=== PATIENT | male | born 1985 | race Caucasian/White ===

== ENCOUNTER 2021-05-30 15:05 | Emergency (ER) | payer MEDICAID, SELFPAY ==
--- NOTE | 2021-05-30 | ECG_ITS ---
Test Reason : MEDICAL CLEARANCE Blood Pressure : / mmHG Vent. Rate : 049 BPM Atrial Rate : 049 BPM P-R Int : 166 ms QRS Dur : 092 ms QT Int : 404 ms P-R-T Axes : 041 083 009 degrees QTc Int : 364 ms Sinus bradycardia Nonspecific ST abnormality When compared with ECG of 28-DEC-2014 17:50, Vent. rate has decreased BY 37 BPM QT has shortened Referred By: Jenna Macdonald Electronically Signed By:NORMA WOODALL MD
[2021-05-30 15:18] VITALS: BP 136/76; PULSE 74; RESP 18; TEMP 36.9; O2SAT 98; BMI 28.1
--- NOTE | 2021-05-30 15:44 | ED.PSYCH ---
HPI - Psych General Chief Complaint: Psychiatric Symptoms Stated Complaint: psychiatric symptoms Time Seen by Provider: 05/30/21 15:36 Source: patient Mode of arrival: ambulatory Limitations: no limitations History of Present Illness MD complaint: suicidal ideation and feels depressed Onset (ago): day(s) (few) Duration: constant History of same: Yes Relieving factors: none Exacerbating factors: none Context: recent drug abuse (relapsed) Associated psychiatric symptoms: depression and suicidal ideation Associated symptoms: denies other symptoms Treatments prior to arrival: none If self harm: admits thoughts of self harm Related Data Home Medications Medication Instructions Recorded Confirmed buprenorphine 8 mg-naloxone 2 mg 1 strip SUBLINGUAL BID 05/30/21 05/30/21 sublingual film (Suboxone) glecaprevir 100 mg-pibrentasvir 40 3 tab PO BEDTIME 05/30/21 05/30/21 mg tablet (Mavyret) Allergies Allergy/AdvReac Type Severity Reaction Status Date / Time No Known Allergies Allergy Unverified 11/25/19 16:18 [No Known Allergies*] Review of Systems Review of Systems: Constitutional : No Fever, No Chills ENT/Mouth : No Ear Pain, No Nasal Congestion, No sore throat Eyes: No Eye Pain, No Swelling, No Redness Cardiovascular : No Chest Pain, No SOB Respiratory : No Cough, No Sputum, No Dyspnea Gastrointestinal : No Nausea, No Vomiting, No Diarrhea, No Hematochezia, No Melena Genitourinary : No Dysuria, No Urinary Frequency, No Hematuria Musculoskeletal : No Myalgias Skin : No Skin Lesions, No rash Neuro : No Weakness, No Numbness, No Paresthesias, No Dizziness, No Headache Psych : positive Anxiety, positive Depression, positive SI no HI Heme/Lymph: No Lymphadenopathy Endocrine : No Polyuria, No Polydipsia All other systems reviewed and are negative PMFSH Past Medical History Attestation statement: The following information was validated with the patient. Medical History (Updated 05/30/21 @ 17:05 by Jenna Macdonald DO) Hepatitis C Opiate abuse, episodic Social History Social History (Updated 05/30/21 @ 16:02 by Jenna Macdonald DO) Patient Tobacco Use Status: Former Tobacco user Substance Use Type: Heroin Advance Directives: No Advance Directives Information Provided: No Healthcare Proxy: No Guardian: No Physical Exam Vital Signs: Vital Signs: Last Vital Signs Temp 98.5 F 05/30/21 15:18 Pulse 74 05/30/21 15:18 Resp 18 05/30/21 15:18 BP 136/76 05/30/21 15:18 Pulse Ox 98 05/30/21 15:18 BMI result Body Mass Index 28.1 Appearance: Alert. Oriented X3. No acute distress. Calm and cooperative Eyes: Pupils equal, round and reactive to light. ENT: Pharynx normal. Neck: Normal inspection. Neck supple. CVS: Normal heart rate and rhythm. Pulses normal. Respiratory: No respiratory distress. Breath sounds normal. Abdomen: Soft and nontender. Skin: Skin warm and dry. Normal skin color. Normal skin turgor. Extremities: No lower extremity edema. No calf ttp Neuro: Oriented X 3. No motor deficit. No sensory deficit. CN2-12 intact Course Course Course Narrative: Physician observation started at 503pm. Patient placed in physician observation because the patient needed more time for [facility] to assess the need for inpatient psych admission. At the time observation was started the patient's vitals were stable, patient is alert and oriented, Neuro: nonfocal, CV RRR, Lungs clear MDM - Psych MDM Narrative Medical decision making narrative: 35 yo male with hx of opiate use disorder comes in with c/o depression and SI after relapse he is on suboxone, denies any medical complaints will obtain labs and refer to N. Lab Data Result diagrams: 05/30/21 16:30 05/30/21 16:30 Labs: Lab Results 05/30/21 05/30/21 05/30/21 Range/Units 16:30 16:30 16:30 WBC 6.6 (4.8-10.8) X10*3/uL RBC 4.45 L (4.60-5.80) X10*6/uL Hgb 13.5 L (14.0-18.0) g/dl Hct 40.0 L (42.0-52.0) % MCV 89.9 (80.0-98.0) fL MCH 30.3 (27.0-33.0) pg MCHC 33.8 (31.0-36.0) g/dl RDW 13.1 (11.0-16.0) % Plt Count 303 (160-400) X10*3/uL MPV 9.7 (9.4-12.4) fL Immature Gran % (Auto) 0.2 (0.0-0.4) % Neut % (Auto) 75.8 H (45-73) % Lymph % (Auto) 18.0 L (20-40) % [place] % (Auto) 5.6 (2-11) % Eos % (Auto) 0.2 (0-4) % Baso % (Auto) 0.2 (0-2) % Lymph # (Auto) 1.2 (1.2-4.9) X10*3/uL [place] # (Auto) 0.4 (0.1-1.2) X10*3/uL Eos # (Auto) 0.0 (0.0-0.4) X10*3/uL Baso # (Auto) 0.0 (0.0-0.2) X10*3/uL Abs Immat Gran (auto) 0.01 (0.00-0.03) X10*3/uL Absolute Neuts (auto) 5.0 (2.0-8.3) x10*3/uL Absolute Nucleated RBC 0.000 (0.0-0.012) X10*3/uL Nucleated RBC % (auto) 0.0 (0.0-0.2) /100WBC Sodium 134 L (135-145) mmol/L Potassium 4.3 (3.3-5.1) mmol/L Chloride 99 (96-108) mmol/L Carbon Dioxide 29 (22-29) mmol/L Anion Gap 10 L (12-20) BUN 16 (9-16) mg/dL Creatinine 1.09 (0.5-1.4) mg/dL Estim Creat Clear Calc 102.9 Estimated GFR > 60 Random Glucose 133 H (60-115) mg/dL Calcium 9.3 (8.4-10.2) mg/dL Total Bilirubin 0.5 (0.0-1.0) mg/dL Direct Bilirubin 0.2 (0.0-0.5) mg/dL AST 14 (5-37) U/L ALT 26 (0-40) U/L Alkaline Phosphatase 69 (39-117) U/L Total Protein 7.1 (6.5-8.0) g/dL Albumin 4.2 (3.5-5.0) g/dL Urine Opiates Screen (Not Detect) Urine Fentanyl Screen (Not Detect) Ur Barbiturates Screen (Not Detect) Ur Phencyclidine Scrn (Not Detect) Ur Amphetamines Screen (Not Detect) U Benzodiazepines Scrn (Not Detect) Urine Cocaine Screen (Not Detect) U Marijuana (THC) Screen (Not Detect) Ethyl Alcohol mg/dL COVID-19 (ART) Negative (Negative) COVID-19 Clin Com See Note 05/30/21 05/30/21 Range/Units 16:30 16:30 WBC (4.8-10.8) X10*3/uL RBC (4.60-5.80) X10*6/uL Hgb (14.0-18.0) g/dl Hct (42.0-52.0) % MCV (80.0-98.0) fL MCH (27.0-33.0) pg MCHC (31.0-36.0) g/dl RDW (11.0-16.0) % Plt Count (160-400) X10*3/uL MPV (9.4-12.4) fL Immature Gran % (Auto) (0.0-0.4) % Neut % (Auto) (45-73) % Lymph % (Auto) (20-40) % [place] % (Auto) (2-11) % Eos % (Auto) (0-4) % Baso % (Auto) (0-2) % Lymph # (Auto) (1.2-4.9) X10*3/uL [place] # (Auto) (0.1-1.2) X10*3/uL Eos # (Auto) (0.0-0.4) X10*3/uL Baso # (Auto) (0.0-0.2) X10*3/uL Abs Immat Gran (auto) (0.00-0.03) X10*3/uL Absolute Neuts (auto) (2.0-8.3) x10*3/uL Absolute Nucleated RBC (0.0-0.012) X10*3/uL Nucleated RBC % (auto) (0.0-0.2) /100WBC Sodium (135-145) mmol/L Potassium (3.3-5.1) mmol/L Chloride (96-108) mmol/L Carbon Dioxide (22-29) mmol/L Anion Gap (12-20) BUN (9-16) mg/dL Creatinine (0.5-1.4) mg/dL Estim Creat Clear Calc Estimated GFR Random Glucose (60-115) mg/dL Calcium (8.4-10.2) mg/dL Total Bilirubin (0.0-1.0) mg/dL Direct Bilirubin (0.0-0.5) mg/dL AST (5-37) U/L ALT (0-40) U/L Alkaline Phosphatase (39-117) U/L Total Protein (6.5-8.0) g/dL Albumin (3.5-5.0) g/dL Urine Opiates Screen POSITIVE H (Not Detect) Urine Fentanyl Screen POSITIVE H (Not Detect) Ur Barbiturates Screen Not Detected (Not Detect) Ur Phencyclidine Scrn Not Detected (Not Detect) Ur Amphetamines Screen Not Detected (Not Detect) U Benzodiazepines Scrn Not Detected (Not Detect) Urine Cocaine Screen POSITIVE H (Not Detect) U Marijuana (THC) Screen POSITIVE H (Not Detect) Ethyl Alcohol < 10 mg/dL COVID-19 (ART) (Negative) COVID-19 Clin Com ECG Data Attestation: I personally reviewed and interpreted this ECG as follows: ECG interpretation date: 05/30/21 ECG interpretation time: 19:40 Interpretation: Rate: 49 Rhythm: sinus bradycardia [place]: normal Normal P waves. Normal RAÚL. Normal QRS complex. ST T wave : no RANDELL, nonspecific inf leads qTC: normal prior studies: no acute ischemia The study has been interpreted contemporaneously by me. Discharge Plan Discharge Clinical Impression: Drug abuse Depression Qualifiers: Depression Type: unspecified Qualified Code(s): F32.A - Depression, unspecified Patient Disposition: Still a Patient Prescriptions: No Action buprenorphine-naloxone [Suboxone] 8-2 mg film 1 strip sublingual BID 0RF Mavyret 100-40 mg tablet 3 tab PO BEDTIME 0RF
--- NOTE | 2021-05-30 16:07 | PC.NURSE ---
patient comes in reporting recent relapse with heroin and cocaine for four days usage today last used two bags heroin, currently in treatment with mavyret for HCV (brought own supply) and suboxone, uses [facility] [address] and [facility], he states the relapse in addition to loss of job and other losses over the last month has contributed to his current state having some SI with method but no intent or plan. states he has housing, denies hallucinations. states he took covid vaccine Moderna. contracts for safety currently.
--- NOTE | 2021-05-30 16:25 | PC.NURSE ---
last heroin use approximately 12p today
[2021-05-30 16:37] LABS: MANUAL DIFF FLAG NO
[2021-05-30 16:39] LABS: Basophils Percent Auto 0.2 % (0-2); Eosinophils Percent Auto 0.2 % (0-4); Hemoglobin 13.5 g/dl (14.0-18.0); Imm Gran Abs Auto 0.01 X10*3/uL (0.00-0.03); Imm Gran Pct Auto 0.2 % (0.0-0.4); Lymphocytes Absolute Auto 1.2 X10*3/uL (1.2-4.9); Mean Corpuscular HGB Conc 33.8 g/dl (31.0-36.0); Mean Corpuscular Hemoglobin 30.3 pg (27.0-33.0); Mean Corpuscular Volume 89.9 fL (80.0-98.0); Mean Platelet Volume 9.7 fL (9.4-12.4); Monocytes Absolute Auto 0.4 X10*3/uL (0.1-1.2); Monocytes Percent Auto 5.6 % (2-11); Neutrophils Percent Auto 75.8 % (45-73); Platelet Count 303 X10*3/uL (160-400); Red Blood Count 4.45 X10*6/uL (4.60-5.80); Red Cell Distribution Width 13.1 % (11.0-16.0); White Blood Count 6.6 X10*3/uL (4.8-10.8)
[2021-05-30 16:55] LABS: COVID-19 Test Negative (Negative); Ethanol < 10 mg/dL
[2021-05-30 16:56] LABS: Amphetamine Screen Urine Not Detected (Not Detect); Barbiturates, Urine Not Detected (Not Detect); Benzodiazepines Screen Urine Not Detected (Not Detect); Cannabinoid Screen Urine POSITIVE (Not Detect); Cocaine Screen Urine POSITIVE (Not Detect); Fentanyl, urine POSITIVE (Not Detect); Opiate Screen Urine POSITIVE (Not Detect); Phencyclidine Screen Urine Not Detected (Not Detect)
[2021-05-30 16:57] LABS: Alanine Aminotransferase 26 U/L (0-40); Albumin Level 4.2 g/dL (3.5-5.0); Alkaline Phosphatase 69 U/L (39-117); Anion Gap 10 (12-20); Aspartate Amino Transferase 14 U/L (5-37); Bilirubin Direct 0.2 mg/dL (0.0-0.5); Bilirubin Total 0.5 mg/dL (0.0-1.0); Blood Urea Nitrogen 16 mg/dL (9-16); Calcium 9.3 mg/dL (8.4-10.2); Carbon Dioxide 29 mmol/L (22-29); Chloride 99 mmol/L (96-108); Creatinine Clr Calc Pharmacy 102.9; Estimated Glomerular Filt Rate > 60; Glucose Random 133 mg/dL (60-115); Potassium 4.3 mmol/L (3.3-5.1); Sodium 134 mmol/L (135-145); Total Protein 7.1 g/dL (6.5-8.0)
[2021-05-30] MEDS: Nicotine Polacrilex 2 MG GUM BUCCAL ×2 (16:59→19:35)
--- NOTE | 2021-05-30 18:23 | MHC.CARE ---
Pt is a CARE Team bedsearch
[2021-05-30 19:45] VITALS: BP 121/61; PULSE 52; RESP 16; TEMP 37.2; O2SAT 99
[2021-05-30] MEDS: Gabapentin 600 MG TABLET 800 MG PO (21:05)
[2021-05-31 00:45] VITALS: BP 131/71; PULSE 54; RESP 16; TEMP 37; O2SAT 94
[2021-05-31 00:52] VITALS: BP 131/71; PULSE 54; RESP 14; TEMP 37; O2SAT 94
[2021-05-31] MEDS: Nicotine Polacrilex 2 MG GUM BUCCAL ×2 (01:06→14:14)
--- NOTE | 2021-05-31 05:50 | PC.NURSE ---
Patient stayed up until 0300 clock watching TV, sleeping since then, no distress observed/reported, patient refused HS suboxone to avoid precipitated withdrawal, medication compliant, behavior appropriate, disposition per care team is section 12 inpatient bed search, will continue to monitor.
--- NOTE | 2021-05-31 07:08 | PC.NURSE ---
Care assumed at this time, report from Perez CANTU. Pt sleeping at this time.
[2021-05-31 08:14] VITALS: BP 138/76; PULSE 59; RESP 13; TEMP 36.8; O2SAT 99
[2021-05-31] MEDS: Gabapentin 600 MG TABLET 800 MG PO ×3 (09:30→20:57)
[2021-05-31] MEDS: Buprenorphine/Naloxone 8/2 mg FILM 1 FILM SUBLINGUAL ×2 (09:31→20:57)
[2021-05-31] MEDS: Buprenorphine/Naloxone 8/2 mg FILM 2 FILM SUBLINGUAL (10:56)
--- NOTE | 2021-05-31 11:06 | PC.NURSE ---
Pt feels as though the dose of suboxone taken this morning has precipitated withdrawal for him. MD placed stat order for 2 films, medical transcription editor per MAY.
--- NOTE | 2021-05-31 12:07 | PC.NURSE ---
Pt noted to be looking in anther patient's room. Pt educated he cannot be invading other patient's privacy. Pt started angrily muttering walking back to his room I know him gesturing, angry at staff for not getting the tv remote from pt's room so he could have it. Pt back in his room at thsi time talking to Cindy from Comprehensive Care team.
--- NOTE | 2021-05-31 15:05 | MHC.RECOVRN ---
Met with pt this morning after c/o precipitated withdrawal. Pt visibly anxious, diaphoretic, rhinorrhea, and reporting body aches. 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 Pt educated regarding options to address withdrawal- taking more Suboxone or taking comfort meds and let time pass. Pt requesting to take more Suboxone. Spoke with Dr. Macdonald and decision was made to give pt 16 mg additional Suboxone. T/w reassessed pt approx an hour later and pt reported decrease in withdrawal symptoms. Pt appeared diaphoretic, however, states It helped. I feel better. Pt not sedated. Awake, sitting in bed, watching TV. In addition, pt spoke with t/w regarding looking into another pts room for the TV remote. Pt frustrated due to the pod having one remote. Pt becoming agitated at times during conversation but able to de-escalate quickly. Pt reminded of need to respect staff and peers. Pt agreeable. Pt given t/w contact information if needed.
[2021-05-31 16:57] VITALS: BP 147/75; PULSE 60; RESP 18; TEMP 37.1; O2SAT 96
[2021-06-01] MEDS: diphenhydrAMINE HCL 25 MG TABLET 50 MG PO (01:30)
[2021-06-01 02:34] VITALS: BP 120/84; PULSE 68; RESP 16; TEMP 37.1; O2SAT 98
[2021-06-01] MEDS: Nicotine Polacrilex 2 MG GUM BUCCAL ×2 (05:28→08:00)
[2021-06-01] MEDS: Buprenorphine/Naloxone 8/2 mg FILM 1 FILM SUBLINGUAL (06:17)
--- NOTE | 2021-06-01 06:18 | PC.NURSE ---
Patient slept though the night, no distress observed/reported, behavior appropriate and non concerning at this time, medication compliant, disposition per care team is section 12 inpatient bed search, patient is pre-accepted either M5 or M3 per care team, AM suboxone administered early per patient's request and provider's approval, VSS, to will continue to monitor.
[2021-06-01] MEDS: Gabapentin 600 MG TABLET 800 MG PO (08:00)
[2021-06-01 09:06] VITALS: BP 144/84; PULSE 63; RESP 17; O2SAT 97
--- NOTE | 2021-06-01 09:50 | PC.NURSE ---
Pt desiring to rescind his CV. CARE team aware and to speak with patient.
--- NOTE | 2021-06-02 12:47 | MHC.CARE ---
CARE team called and spoke with Roscoe, he reports he is feeling really good and I am walking in right now to see my daughter . He reports recovery team did follow up with him, CARE team informed him he left his book here at hospital and he reported he is done reading it and requested to donate it to unit for other patients to read.
== END 2021-06-01 11:30 | disposition home or self-care (01) ==
PROVIDERS: Emergency Provider Emergency Medicine; PCP Internal Medicine
DX: F33.1 Major depressive disorder, recurrent, moderate (principal); R45.851 Suicidal ideations; F14.10 Cocaine abuse, uncomplicated; F11.10 Opioid abuse, uncomplicated; Z20.822 Contact with and (suspected) exposure to COVID-19; Z79.899 Other long term (current) drug therapy; Z87.891 Personal history of nicotine dependence
CPT/HCPCS: 80048; 80076; 80307; 82077; 85025; 87635; 93005; 99285; Q0163

== ENCOUNTER 2021-06-23 14:07 | Inpatient (IN) | payer MEDICAID, OTHER, SELFPAY ==
[2021-06-23 14:16] VITALS: BP 166/71; PULSE 82; RESP 18; TEMP 36.8; O2SAT 96; BMI 29.7
--- NOTE | 2021-06-23 14:59 | ECG_ITS ---
Test Reason : CHEST PRESS Blood Pressure : / mmHG Vent. Rate : 064 BPM Atrial Rate : 064 BPM P-R Int : 158 ms QRS Dur : 100 ms QT Int : 372 ms P-R-T Axes : 057 092 011 degrees QTc Int : 383 ms Normal sinus rhythm Rightward axis Minimal voltage criteria for LVH, may be normal variant ( [place] product ) Borderline ECG When compared with ECG of 30-MAY-2021 19:30, No significant change was found Referred By: Lisa Ibrahim Electronically Signed By:Nathan Jane
--- NOTE | 2021-06-23 15:04 | ED.PSYCH ---
HPI - Psych General Chief Complaint: Psychiatric Symptoms Stated Complaint: crisis Time Seen by Provider: 06/23/21 14:39 Source: patient Mode of arrival: ambulatory Limitations: no limitations History of Present Illness HPI Narrative: 35-year-old male presents with suicidal ideation with a plan. His plan is to obtain a gun from his friends and shoot himself. He denies homicidal ideation, visual or auditory hallucinations. Patient used heroin and cocaine, he injected both at noon today. He had been clean for almost 2 years but for the past week he has been using every day. He has not taken any Suboxone for the past 2 days. He has some reflux now. He feels like he has reflux symptoms when he uses cocaine. Patient is prescribed gabapentin for anxiety. He has no therapist or psychiatrist. He did have an inpatient psychiatric stay at [facility] in 2019 which he found helpful. States for the last 2 months he has had a multiple life stressors. He lost his job, he has instability with landlord, and he is in love with someone which is unrequited. Patient was here for 2 days in late May for suicidal ideation and was discharged home on Suboxone. Related Data Home Medications Medication Instructions Recorded Confirmed buprenorphine 8 mg-naloxone 2 mg 1 strip SUBLINGUAL BID 06/23/21 06/23/21 sublingual film gabapentin 800 mg tablet 1 tab PO TID 06/23/21 06/23/21 Allergies Allergy/AdvReac Type Severity Reaction Status Date / Time No Known Allergies Allergy Verified 06/23/21 14:15 [No Known Allergies*] Review of Systems Constitutional: Constitutional: Denies body ache(s), Denies chills, Denies fatigue, Denies fever(s), Denies headache(s), Denies malaise and Denies weakness Eyes: Eyes: Denies diplopia ENT: Denies vertigo, Denies dizziness, Denies otalgia, Denies headache(s), Denies mouth pain, Denies post nasal drip, Denies sinus pain, Denies sinus pressure, Denies sore throat and Denies throat swelling Cardiovascular: Cardiovascular: Denies chest pain, Denies syncope, Denies leg edema, Denies lightheadedness, Denies Loss of Consciousness, Denies palpitations and Denies dyspnea Respiratory: Respiratory: Denies chest congestion, Denies cough and Denies dyspnea Gastrointestinal: Gastrointestinal: Denies abdominal pain, Denies melena, Denies hematochezia, Denies change in stool character, Denies constipation, Reports dyspepsia, Reports heartburn, Denies diarrhea and Denies vomiting Genitourinary: Genitourinary: Reports no additional male genitourinary complaints Musculoskeletal: Musculoskeletal: Reports no additional musculoskeletal complaints Neurologic: Denies confusion, Denies vertigo, Denies dizziness, Denies syncope, Denies headache(s) and Denies weakness Psychiatric: Psychiatric: Denies anxiety, Denies confusion and Denies depression Endocrine: Endocrine: Denies fatigue and Denies palpitations Allergic/Immunologic: Allergic/Immunologic: Denies throat swelling PMFSH Past Medical History Medical History (Updated 06/23/21 @ 20:31 by CARMEN Nieto) Hepatitis C Opiate abuse, episodic Social History Social History Patient Tobacco Use Status: Former Tobacco user Substance Use Type: Heroin Advance Directives: No Advance Directives Information Provided: No Physical Exam Vital Signs: Vital Signs: Last Vital Signs Temp 98.2 F 06/23/21 14:16 Pulse 82 06/23/21 14:16 Resp 18 06/23/21 14:16 BP 166/71 H 06/23/21 14:16 Pulse Ox 96 06/23/21 14:16 BMI result Body Mass Index 29.7 Const: General: No confusion Nutritional Appearance: well nourished Orientation/consciousness: No confusion Limitations: no limitations HEENT: Head: Yes normal to inspection, Yes normocephalic and Yes atraumatic Ears: hearing grossly normal bilaterally, external ears normal, TM's normal bilaterally and EAC's normal General nose exam: Normal external nose present Face and sinus: Yes normal facial exam and Yes sinuses nontender Mouth: Normal oral and palatal mucosa present Throat: Yes posterior oropharynx normal Eyes: Conjunctivae: conjunctivae normal Pupils: Equal, round and reactive pupils present EOM: EOMs intact bilaterally Neck: Neck: Yes full ROM, Yes no lymphadenopathy and Yes supple Resp: Effort & Inspection: normal respiratory effort and able to speak in complete sentences Auscultation: clear to auscultation bilaterally, no crackles, no rales, no rhonchi and no wheezes Cardio: Rate: regular rate Rhythm: regular rhythm Heart sounds: S1 normal heart sound present and S2 normal heart sound present GI: Inspection: Yes normal to inspection Palpation (GI): Soft to palpation, nontender, no guarding and not rigid Percussion: Yes normal to percussion Auscultation: normal bowel sounds Skin: General skin exam: no rashes or lesions noted Neuro: General: No confusion Cranial nerves: Yes Equal, round and reactive pupils present Extrem: General: Yes normal to inspection and Yes full ROM Psych: Appearance: grossly normal Affect: normal affect Attitude: cooperative Thought process: Normal thought process present Course Course Course Narrative: 35-year-old male with suicidal ideation with a plan to shoot himself with a gun he could obtain from friends. Patient used heroin and cocaine just prior to arrival. On exam, patient is pleasant cooperative, has stable vitals, lungs clear to auscultation bilaterally, abdomen soft nontender, heart regular rate and rhythm. Will get labs, drug screen, troponin, EKG. Reevaluation(s) Reevaluation #1: Patient is mildly hyperkalemic at 5 point 4, as white blood cell count 11.7, negative for COVID, EKG is normal troponin is negative, patient's urine drug screen is positive for fentanyl, cocaine, opiates, marijuana Patient is medically cleared for crisis evaluation Reevaluation #2: Spoke to García, recovery specialist, who suggested I put in an order for 2 mg Suboxone as a 1 time dose, he discussed with patient the patient will wait and asks for it when he is ready so it does not precipitate withdrawal. Time: 20:30 Reevaluation #3: Patient placed into physician observation at this time, awaiting crisis evaluation I put in for repeat CMP to check patient's mildly elevated potassium. MDM - Psych Lab Data Result diagrams: 06/23/21 15:20 06/23/21 15:20 Labs: Lab Results 06/23/21 06/23/21 06/23/21 Range/Units 14:45 15:20 15:20 WBC 11.7 H (4.8-10.8) X10*3/uL RBC 4.73 (4.60-5.80) X10*6/uL Hgb 14.3 (14.0-18.0) g/dl Hct 43.0 (42.0-52.0) % MCV 90.9 (80.0-98.0) fL MCH 30.2 (27.0-33.0) pg MCHC 33.3 (31.0-36.0) g/dl RDW 13.4 (11.0-16.0) % Plt Count 398 D (160-400) X10*3/uL MPV 9.1 L (9.4-12.4) fL Immature Gran % (Auto) 0.3 (0.0-0.4) % Neut % (Auto) 86.6 H (45-73) % Lymph % (Auto) 8.1 L (20-40) % [place] % (Auto) 4.1 (2-11) % Eos % (Auto) 0.6 (0-4) % Baso % (Auto) 0.3 (0-2) % Lymph # (Auto) 1.0 L (1.2-4.9) X10*3/uL [place] # (Auto) 0.5 (0.1-1.2) X10*3/uL Eos # (Auto) 0.1 (0.0-0.4) X10*3/uL Baso # (Auto) 0.0 (0.0-0.2) X10*3/uL Abs Immat Gran (auto) 0.04 H (0.00-0.03) X10*3/uL Absolute Neuts (auto) 10.2 H (2.0-8.3) x10*3/uL Absolute Nucleated RBC 0.000 (0.0-0.012) X10*3/uL Nucleated RBC % (auto) 0.0 (0.0-0.2) /100WBC Sodium 134 L (135-145) mmol/L Potassium 5.3 H D (3.3-5.1) mmol/L Chloride 101 (96-108) mmol/L Carbon Dioxide 24 (22-29) mmol/L Anion Gap 14 (12-20) BUN 11 (9-16) mg/dL Creatinine 1.00 (0.5-1.4) mg/dL Estim Creat Clear Calc 108.1 Estimated GFR > 60 Random Glucose 110 (60-115) mg/dL Calcium 9.7 (8.4-10.2) mg/dL Total Bilirubin 0.4 (0.0-1.0) mg/dL AST 19 (5-37) U/L ALT 32 (0-40) U/L Alkaline Phosphatase 60 (39-117) U/L Troponin I High Sens (<3.5-35.0) ng/L Total Protein 7.4 (6.5-8.0) g/dL Albumin 4.2 (3.5-5.0) g/dL Salicylates < 5.0 L (15-30) mg/dL Urine Opiates Screen (Not Detect) Urine Fentanyl Screen (Not Detect) Acetaminophen < 1 (<30) mcg/mL Ur Barbiturates Screen (Not Detect) Ur Phencyclidine Scrn (Not Detect) Ur Amphetamines Screen (Not Detect) U Benzodiazepines Scrn (Not Detect) Urine Cocaine Screen (Not Detect) U Marijuana (THC) Screen (Not Detect) Ethyl Alcohol mg/dL COVID-19 (ART) Negative (Negative) COVID-19 Clin Com See Note 06/23/21 06/23/21 06/23/21 Range/Units 15:20 15:20 15:27 WBC (4.8-10.8) X10*3/uL RBC (4.60-5.80) X10*6/uL Hgb (14.0-18.0) g/dl Hct (42.0-52.0) % MCV (80.0-98.0) fL MCH (27.0-33.0) pg MCHC (31.0-36.0) g/dl RDW (11.0-16.0) % Plt Count (160-400) X10*3/uL MPV (9.4-12.4) fL Immature Gran % (Auto) (0.0-0.4) % Neut % (Auto) (45-73) % Lymph % (Auto) (20-40) % [place] % (Auto) (2-11) % Eos % (Auto) (0-4) % Baso % (Auto) (0-2) % Lymph # (Auto) (1.2-4.9) X10*3/uL [place] # (Auto) (0.1-1.2) X10*3/uL Eos # (Auto) (0.0-0.4) X10*3/uL Baso # (Auto) (0.0-0.2) X10*3/uL Abs Immat Gran (auto) (0.00-0.03) X10*3/uL Absolute Neuts (auto) (2.0-8.3) x10*3/uL Absolute Nucleated RBC (0.0-0.012) X10*3/uL Nucleated RBC % (auto) (0.0-0.2) /100WBC Sodium (135-145) mmol/L Potassium (3.3-5.1) mmol/L Chloride (96-108) mmol/L Carbon Dioxide (22-29) mmol/L Anion Gap (12-20) BUN (9-16) mg/dL Creatinine (0.5-1.4) mg/dL Estim Creat Clear Calc Estimated GFR Random Glucose (60-115) mg/dL Calcium (8.4-10.2) mg/dL Total Bilirubin (0.0-1.0) mg/dL AST (5-37) U/L ALT (0-40) U/L Alkaline Phosphatase (39-117) U/L Troponin I High Sens 3.8 (<3.5-35.0) ng/L Total Protein (6.5-8.0) g/dL Albumin (3.5-5.0) g/dL Salicylates (15-30) mg/dL Urine Opiates Screen POSITIVE H (Not Detect) Urine Fentanyl Screen POSITIVE H (Not Detect) Acetaminophen (<30) mcg/mL Ur Barbiturates Screen Not Detected (Not Detect) Ur Phencyclidine Scrn Not Detected (Not Detect) Ur Amphetamines Screen Not Detected (Not Detect) U Benzodiazepines Scrn Not Detected (Not Detect) Urine Cocaine Screen POSITIVE H (Not Detect) U Marijuana (THC) Screen POSITIVE H (Not Detect) Ethyl Alcohol < 10 mg/dL COVID-19 (ART) (Negative) COVID-19 Clin Com Discharge Plan Discharge Clinical Impression: Suicidal ideation Patient Disposition: Still a Patient Prescriptions: No Action gabapentin 800 mg tablet 1 tab PO TID 0RF buprenorphine-naloxone 8-2 mg film 1 strip sublingual BID 0RF
[2021-06-23 15:13] LABS: COVID-19 Test Negative (Negative); IDNOW Serial# 55D5AD1C
[2021-06-23 15:24] LABS: MANUAL DIFF FLAG NO
[2021-06-23] MEDS: Nicotine Polacrilex 2 MG GUM BUCCAL ×3 (15:25→20:42)
[2021-06-23] MEDS: Magnesium Hydrox/Alum Hydrox 30 ML ORAL.SUSP PO (15:25)
[2021-06-23 15:26] LABS: Basophils Percent Auto 0.3 % (0-2); Eosinophils Absolute Auto 0.1 X10*3/uL (0.0-0.4); Eosinophils Percent Auto 0.6 % (0-4); Hemoglobin 14.3 g/dl (14.0-18.0); Imm Gran Abs Auto 0.04 X10*3/uL (0.00-0.03); Imm Gran Pct Auto 0.3 % (0.0-0.4); Lymphocytes Percent Auto 8.1 % (20-40); Mean Corpuscular HGB Conc 33.3 g/dl (31.0-36.0); Mean Corpuscular Hemoglobin 30.2 pg (27.0-33.0); Mean Corpuscular Volume 90.9 fL (80.0-98.0); Mean Platelet Volume 9.1 fL (9.4-12.4); Monocytes Absolute Auto 0.5 X10*3/uL (0.1-1.2); Monocytes Percent Auto 4.1 % (2-11); Neutrophils Absolute Auto 10.2 x10*3/uL (2.0-8.3); Neutrophils Percent Auto 86.6 % (45-73); Platelet Count 398 X10*3/uL (160-400); Red Blood Count 4.73 X10*6/uL (4.60-5.80); Red Cell Distribution Width 13.4 % (11.0-16.0); White Blood Count 11.7 X10*3/uL (4.8-10.8)
[2021-06-23 15:38] LABS: Ethanol < 10 mg/dL
[2021-06-23 15:45] LABS: Acetaminophen LAB < 1 mcg/mL (<30); Alanine Aminotransferase 32 U/L (0-40); Albumin Level 4.2 g/dL (3.5-5.0); Alkaline Phosphatase 60 U/L (39-117); Anion Gap 14 (12-20); Aspartate Amino Transferase 19 U/L (5-37); Bilirubin Total 0.4 mg/dL (0.0-1.0); Blood Urea Nitrogen 11 mg/dL (9-16); Calcium 9.7 mg/dL (8.4-10.2); Carbon Dioxide 24 mmol/L (22-29); Chloride 101 mmol/L (96-108); Creatinine Clr Calc Pharmacy 108.1; Estimated Glomerular Filt Rate > 60; Glucose Random 110 mg/dL (60-115); Potassium 5.3 mmol/L (3.3-5.1); Salicylate < 5.0 mg/dL (15-30); Sodium 134 mmol/L (135-145); Total Protein 7.4 g/dL (6.5-8.0)
[2021-06-23 15:46] LABS: Troponin-I High Sensitivity 3.8 ng/L (<3.5-35.0)
[2021-06-23 16:03] LABS: Amphetamine Screen Urine Not Detected (Not Detect); Barbiturates, Urine Not Detected (Not Detect); Benzodiazepines Screen Urine Not Detected (Not Detect); Cannabinoid Screen Urine POSITIVE (Not Detect); Cocaine Screen Urine POSITIVE (Not Detect); Fentanyl, urine POSITIVE (Not Detect); Opiate Screen Urine POSITIVE (Not Detect); Phencyclidine Screen Urine Not Detected (Not Detect)
--- NOTE | 2021-06-23 16:48 | PC.NURSE ---
PA aware of high potassium and low sodium
--- NOTE | 2021-06-23 18:16 | MHC.RECOVSUP ---
Recovery Support note: Patient is a 35 year old Tristanian speaking male who presented to [facility] ED due to SI and substance use. This com writer met with patient to discuss withdrawal management. Patient reports last using at noon today and that he has been using heroin and cocaine daily for about a week. Patient would like to get back on Suboxone. Discussed case with ED provider and RN. Plan for patient to wait until withdrawal is severe and request Suboxone at that time. Patient plans to wait until at least 24 hours as he has precipitated withdrawal in the past and does not want to repeat that. Plan for patient to have a 2mg film of Suboxone ordered for when withdrawal is severe. If this does not precipitate withdrawal, patient will continue on with his regularly scheduled dose. Patient aware of plan and reports no questions at this time. Patient is resting comfortable and awaiting a N evaluation. Patient reports no withdrawal at this time.
--- NOTE | 2021-06-23 19:05 | PC.NURSE ---
Took report from Nahomi to assume care of Pt, Pt resting and watching TV, Pt calm/cooperative at this time, safety maintained, this RN continues to monitor.
[2021-06-23] MEDS: Gabapentin 400 MG CAPSULE 800 MG PO (20:43)
--- NOTE | 2021-06-23 20:45 | PC.NURSE ---
Pt medicated with scheduled bedtime meds, Pt calm/cooperative at this time, safety maintained, this RN continues to monitor.
[2021-06-23 21:09] LABS: Alanine Aminotransferase 28 U/L (0-40); Albumin Level 3.8 g/dL (3.5-5.0); Alkaline Phosphatase 54 U/L (39-117); Anion Gap 14 (12-20); Aspartate Amino Transferase 16 U/L (5-37); Bilirubin Total 0.4 mg/dL (0.0-1.0); Blood Urea Nitrogen 10 mg/dL (9-16); Calcium 9.3 mg/dL (8.4-10.2); Carbon Dioxide 27 mmol/L (22-29); Chloride 98 mmol/L (96-108); Creatinine Clr Calc Pharmacy 116.2; Estimated Glomerular Filt Rate > 60; Glucose Random 87 mg/dL (60-115); Potassium 4.7 mmol/L (3.3-5.1); Sodium 134 mmol/L (135-145); Total Protein 6.7 g/dL (6.5-8.0)
--- NOTE | 2021-06-23 21:13 | MHC.CARE ---
N crisis smartsheet completed.
[2021-06-23] MEDS: Melatonin 3 MG TABLET PO (22:14)
--- NOTE | 2021-06-23 22:20 | PC.NURSE ---
Pt given requested melatonin for sleeping, Pt calm/cooperative at this time, safety maintained, this RN continues to monitor.
--- NOTE | 2021-06-24 04:54 | PC.NURSE ---
Pt sleeping, chest rise and fall observed, safety maintained, this RN continues to monitor.
--- NOTE | 2021-06-24 06:41 | PC.NURSE ---
Pt sleeping, chest rise and fall observed, safety maintained, this RN continues to monitor.
[2021-06-24] MEDS: Gabapentin 400 MG CAPSULE 800 MG PO ×3 (09:46→20:11)
[2021-06-24] MEDS: Nicotine Polacrilex 2 MG GUM BUCCAL ×5 (09:47→22:56)
[2021-06-24 10:16] VITALS: BP 127/60; PULSE 63; RESP 18; TEMP 37.1; O2SAT 98
[2021-06-24] MEDS: cloNIDine HCL 0.1 MG TABLET PO (10:56)
[2021-06-24] MEDS: LORazepam 1 MG TABLET PO (10:57)
--- NOTE | 2021-06-24 12:53 | PC.NURSE ---
pt refusing his suboxone at this time. reports that he just used heroin yesterday and he would go wicked bad into withdrawals . CARMEN Barahona notified and CLonidine and Ativan ordered. instructed to hold suboxone for now, pt can get it later in the day if needed.
[2021-06-24] MEDS: Buprenorphine/Naloxone 2/0.5mg FILM 1 FILM SUBLINGUAL (13:59)
--- NOTE | 2021-06-24 14:14 | PC.NURSE ---
move pt to BH5 - appears more comfortable. pt calm and cooperative. met with N and continues to be a inpatient bed search. pt is NOT on a section 12
[2021-06-24 15:55] VITALS: BP 134/75; PULSE 78; RESP 19; TEMP 36.8; O2SAT 97
--- NOTE | 2021-06-24 16:18 | PC.NURSE ---
pt requesting his 8mg suboxone dose at this time, per [place] MORALES and Cindy manager of disaster recovery RN - pt ok to get medication at this time.
[2021-06-24] MEDS: Buprenorphine/Naloxone 8/2 mg FILM 1 FILM SUBLINGUAL ×3 (16:19→17:32)
--- NOTE | 2021-06-24 17:27 | PC.NURSE ---
following administration of 8mg Suboxone pt feeling like shit . reports he feels like bugs are crawling on him and inside of his legs. t/w completed COWS assessment on pt and he scored a 19. advocated for repeat dose of Suboxone 8mg, per Cindy silver recovery operator, RN pt previously experienced similar situation and 16mg SUboxone was helpful to the pt.
[2021-06-24 19:18] VITALS: RESP 16
[2021-06-24 19:19] VITALS: RESP 16
[2021-06-24 23:46] VITALS: BP 139/65; PULSE 76; RESP 16; TEMP 37.4; O2SAT 96
[2021-06-25] MEDS: diphenhydrAMINE HCL 25 MG TABLET PO ×2 (00:14→04:28)
--- NOTE | 2021-06-25 00:15 | PC.NURSE ---
pt treated with bendryl po 25 mg for unable to sleep.
[2021-06-25] MEDS: cloNIDine HCL 0.1 MG TABLET PO (04:28)
[2021-06-25 04:34] VITALS: BP 138/77; PULSE 63; RESP 16; O2SAT 96
--- NOTE | 2021-06-25 04:34 | PC.NURSE ---
pt having a difficult time staying/falling asleep. pt medicated with benadryl and clonidine po. pt vitals stable. pt is calm cooperative and polite with staff.
[2021-06-25] MEDS: Nicotine Polacrilex 2 MG GUM BUCCAL ×7 (05:38→22:52)
--- NOTE | 2021-06-25 07:40 | PC.NURSE ---
patient appears in no distresss, respirations are even and unlabored patient appears in no distress.
[2021-06-25] MEDS: Buprenorphine/Naloxone 8/2 mg FILM 1 FILM SUBLINGUAL ×2 (08:07→20:34)
[2021-06-25] MEDS: Gabapentin 400 MG CAPSULE 800 MG PO ×3 (08:08→20:34)
[2021-06-25 16:24] VITALS: BP 126/81; PULSE 69; RESP 18; TEMP 37.2; O2SAT 100
[2021-06-25 18:18] LABS: COVID-19 Test Negative (Negative)
[2021-06-25] MEDS: hydrOXYzine HCL 50 MG TABLET PO (20:34)
[2021-06-26] MEDS: Nicotine Polacrilex 2 MG GUM BUCCAL ×6 (04:05→20:30)
[2021-06-26 06:18] VITALS: BP 146/74; PULSE 60; RESP 16; TEMP 36.7; O2SAT 99
--- NOTE | 2021-06-26 07:34 | PC.NURSE ---
patient appears to remain at rest at present, respirations are even and unlabored patient appears in no distress
[2021-06-26 07:54] VITALS: BP 138/78; PULSE 68; RESP 18; TEMP 36.6; O2SAT 97
[2021-06-26] MEDS: Buprenorphine/Naloxone 8/2 mg FILM 1 FILM SUBLINGUAL ×2 (08:13→18:43)
[2021-06-26] MEDS: Gabapentin 400 MG CAPSULE 800 MG PO ×3 (08:14→20:29)
--- NOTE | 2021-06-26 13:06 | PHA.MEDREC ---
Pharmacy Consult ? Medication Reconciliation Pharmacy has completed the medication reconciliation.
[2021-06-26 17:54] VITALS: PULSE 68
[2021-06-26 18:00] VITALS: BP 149/74; PULSE 72; RESP 16; TEMP 37.5; O2SAT 98
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
--- NOTE | 2021-06-26 18:26 | PC.ADMIT ---
Pt admitted at 1645 from [facility]. Per crisis report pt was endorsing SI with a plan to shoot himself with a gun. Pt reported that he was not suicidal, and that he left [facility] on Friday after he was not medicated. Prior to coming to [place] ED, he used IV heroin and cocaine. Pt reports he recently lost his job, which was one of the precipitants leading up to recent relapse. Pt had been sober for 2 years. Pt reports he is on probation, but did not disclose why, and that he has been incarcerated several times. Pt is prescribed suboxone, and goes to the [facility] clinic in [place]. Pt signed a 3 day notice on admission, which is up on 06/29/21. Pt reports that he has an intake at a sober living home the same day. Pt denies any withdrawal symptoms, and denies SI/HI/VH/AH.
[2021-06-26] MEDS: Acetaminophen 325 MG TABLET 650 MG PO (20:29)
[2021-06-26] MEDS: hydrOXYzine HCL 25 MG TABLET PO (21:44)
[2021-06-27 06:00] VITALS: BP 141/77; PULSE 70; RESP 16; TEMP 37.2; O2SAT 99
[2021-06-27] MEDS: Buprenorphine/Naloxone 8/2 mg FILM 1 FILM SUBLINGUAL ×2 (06:13→17:13)
[2021-06-27] MEDS: Nicotine Polacrilex 2 MG GUM BUCCAL ×6 (06:44→22:58)
[2021-06-27] MEDS: Gabapentin 400 MG CAPSULE 800 MG PO ×3 (08:43→20:25)
[2021-06-27] MEDS: Multivitamin TABLET 1 TAB PO (08:43)
--- NOTE | 2021-06-27 19:19 | HO.PSYCHPN ---
Subjective Subjective Date of Service: 06/27/21 Reason For Visit: Suicidality. opiate use disorder Interim History: Patient seen and discussed with team. Patient evaluated today and upon interview pt reports he is alright. Says he slept a little last night and earlier today. Doesnt want recovery team consult, says he feels better when I don't focus on that. Mood stable. Says its all set for him to return to [facility]? In the milieu, patient is safe and appropriate in behavior. Denies SI/SIB/HI upon inquiry. Denies irritability or assaultive ideation. Says he feels safe. Medication Compliance: Yes Side effects from medications: No Attending Groups: Yes Review of Systems Acute medical concerns: No Medical Review of Systems: unchanged Mental Status Exam Mental Status Exam Narrative: A&O. Casual dress, good hygiene, normal body habitus. Good eye contact, attentive. No Tics or Tremors. No abnormal involuntary movements. Calm, cooperative, engaged. Non-pressured speech, spontaneous with regular rate and rhythm, normal volume and prosody. No prolonged speech latency or dysarthria. Mood is ?good,? affect is euthymic. Denies SI/SIB/HI upon inquiry. Denies A/VH or delusional thought content. Thoughts are coherent, organized. No known cognitive or memory impairment. Insight/ Judgment fair and adequate. Diagnostics Vital Signs (24Hr): Vital Signs - 24 hr 06/27/21 06:00 06/27/21 19:20 Temperature 98.9 F 99.1 F Pulse Rate 70 76 Respiratory Rate 16 Blood Pressure 141/77 H 141/68 H Pulse Oximetry 99 97 BMI result Body Mass Index 29.7 Labs Results: 06/23/21 15:20 06/23/21 20:49 Medications Medications Current Medications Acetaminophen (Acetaminophen 325 Mg Tablet) 650 mg PO Q6H PRN PRN Reason: Headache/Pain Mild Scale (1-3) Last Admin: 06/26/21 20:29 Dose: 650 mg Documented by: Al Hydroxide/Mg Hydroxide (Magnesium Hydrox/Alum Hydrox 30 Ml Oral.Susp) 30 ml PO Q6H PRN PRN Reason: Heartburn/Nausea Buprenorphine/Naloxone (Buprenorphine/Naloxone 8/2 Mg Film) 1 film SUBLINGUAL 0630,1700 [facility] Last Admin: 06/27/21 17:13 Dose: 1 film Documented by: Clonidine HCl (Clonidine Hcl 0.1 Mg Tablet) 0.1 mg PO TID PRN; Protocol PRN Reason: Opiate Withdrawal Gabapentin (Gabapentin 400 Mg Capsule) 800 mg PO TID [facility] Last Admin: 06/27/21 20:25 Dose: 800 mg Documented by: Hydroxyzine HCl (Hydroxyzine Hcl 25 Mg Tablet) 25 mg PO BEDTIME PRN PRN Reason: Anxiety Last Admin: 06/27/21 21:56 Dose: 25 mg Documented by: Magnesium Hydroxide (Milk Of Magnesia 30 Ml Oral.Susp) 30 ml PO DAILY PRN PRN Reason: Constipation Multivitamins/Vitamin C (Multivitamin Tablet) 1 tab PO DAILY [facility] Last Admin: 06/27/21 08:43 Dose: 1 tab Documented by: Nicotine Polacrilex (Nicotine Polacrilex 2 Mg Gum) 2 mg BUCCAL Q2H PRN PRN Reason: Nicotine Cravings Last Admin: 06/27/21 22:58 Dose: 2 mg Documented by: Trazodone HCl (Trazodone Hcl 50 Mg Tablet) 50 mg PO BEDTIME PRN PRN Reason: Insomnia Allergies Allergies Allergy/AdvReac Type Severity Reaction Status Date / Time No Known Allergies Allergy Verified 06/23/21 14:15 [No Known Allergies*] Assessment & Plan Assessment & Plan (1) MDD (major depressive disorder), recurrent episode, moderate: Status: Acute Code(s): F33.1 - Major depressive disorder, recurrent, moderate (2) Cocaine use disorder: Status: Acute Code(s): F14.10 - Cocaine abuse, uncomplicated (3) Opioid use disorder: Status: Acute Code(s): F11.90 - Opioid use, unspecified, uncomplicated Plan Roscoe is a 35 y.o. male who carries a dx of polysubstance abuse, MDD recurrent. He presented to [facility] with SI with a plan to obtain a gun from his friends and shoot himself.? Pt relapsed on heroin and cocaine, had been clean for several months but using daily x one week. Re-started on suboxone in the ED setting. Precipitating factors include he lost his job, housing instability, and he is in love with someone, which is unrequited. Plan: Pt reports positive benefit on gabapentin for anxiety and mood sx, does not want med changes, currently denies depression or SI. 06/27: No changes to tx plan Q15 min safety checks, CV, 3 day notice 06/26/21 Monitor response to medications. Monitor for safety in the milieu. Discharge on stabilization. Patient seen. Chart reviewed. Discussed with team. Obtain collateral contact info?as needed I spent minutes with the patient and/or on the patient floor today, greater than?50% of which was spent counseling/coordinating care. Patient educated on: therapeutic strategies Reason for contiued inpatient stay Substantial Risk for: med/psych decompensation
[2021-06-27 19:20] VITALS: BP 141/68; PULSE 76; TEMP 37.3; O2SAT 97
[2021-06-27] MEDS: hydrOXYzine HCL 25 MG TABLET PO (21:56)
[2021-06-28 06:00] VITALS: BP 139/80; PULSE 72; RESP 18; TEMP 37.1; O2SAT 99
[2021-06-28] MEDS: Buprenorphine/Naloxone 8/2 mg FILM 1 FILM SUBLINGUAL ×2 (06:49→17:08)
[2021-06-28] MEDS: Nicotine Polacrilex 2 MG GUM BUCCAL ×7 (07:01→22:22)
[2021-06-28] MEDS: Multivitamin TABLET 1 TAB PO (09:07)
[2021-06-28] MEDS: Gabapentin 400 MG CAPSULE 800 MG PO ×3 (09:07→19:19)
[2021-06-28 16:00] VITALS: PULSE 89
[2021-06-28 18:00] VITALS: BP 109/68; PULSE 89; RESP 16; TEMP 36.8; O2SAT 99
--- NOTE | 2021-06-28 19:43 | P.PNPSI_ITS ---
Subjective Subjective Date of Service: 06/28/21 Reason For Visit: Suicidality. opiate use disorder Interim History: Patient seen and discussed with team. Patient evaluated today and upon interview he is doing alright, says he feels all set to go. Denies mood or behavioral concerns. Has plans to discharge to sober living residence. Sleep is good. In the milieu, patient is safe and appropriate in behavior. Denies SI/SIB/HI upon inquiry. Denies irritability or assaultive ideation. Says he feels safe. Medication Compliance: Yes Side effects from medications: No Attending Groups: Yes Review of Systems Acute medical concerns: No Medical Review of Systems: unchanged Mental Status Exam Mental Status Exam Narrative: A&O. Casual dress, good hygiene, normal body habitus. Good eye contact, attentive. No Tics or Tremors. No abnormal involuntary movements. Calm, cooperative, engaged. Non-pressured speech, spontaneous with regular rate and rhythm, normal volume and prosody. No prolonged speech latency or dysarthria. Mood is ?good,? affect is euthymic. Denies SI/SIB/HI upon inquiry. Denies A/VH or delusional thought content. Thoughts are coherent, organized. No known cognitive or memory impairment. Insight/ Judgment fair and adequate. Diagnostics Vital Signs (24Hr): Vital Signs - 24 hr 06/28/21 18:00 06/29/21 06:00 Temperature 98.2 F 97.8 F Pulse Rate 89 74 Respiratory Rate 16 16 Blood Pressure 109/68 131/71 Pulse Oximetry 99 98 BMI result Body Mass Index 29.7 Labs Results: 06/23/21 15:20 06/23/21 20:49 Medications Medications Current Medications Acetaminophen (Acetaminophen 325 Mg Tablet) 650 mg PO Q6H PRN PRN Reason: Headache/Pain Mild Scale (1-3) Last Admin: 06/26/21 20:29 Dose: 650 mg Documented by: Al Hydroxide/Mg Hydroxide (Magnesium Hydrox/Alum Hydrox 30 Ml Oral.Susp) 30 ml PO Q6H PRN PRN Reason: Heartburn/Nausea Buprenorphine/Naloxone (Buprenorphine/Naloxone 8/2 Mg Film) 1 film SUBLINGUAL 0630,1700 TORI Last Admin: 06/29/21 06:31 Dose: 1 film Documented by: Clonidine HCl (Clonidine Hcl 0.1 Mg Tablet) 0.1 mg PO TID PRN; Protocol PRN Reason: Opiate Withdrawal Gabapentin (Gabapentin 400 Mg Capsule) 800 mg PO TID [facility] Last Admin: 06/29/21 08:14 Dose: 800 mg Documented by: Hydroxyzine HCl (Hydroxyzine Hcl 25 Mg Tablet) 25 mg PO BEDTIME PRN PRN Reason: Anxiety Last Admin: 06/28/21 21:39 Dose: 25 mg Documented by: Magnesium Hydroxide (Milk Of Magnesia 30 Ml Oral.Susp) 30 ml PO DAILY PRN PRN Reason: Constipation Multivitamins/Vitamin C (Multivitamin Tablet) 1 tab PO DAILY [facility] Last Admin: 06/29/21 08:14 Dose: 1 tab Documented by: Nicotine Polacrilex (Nicotine Polacrilex 2 Mg Gum) 2 mg BUCCAL Q2H PRN PRN Reason: Nicotine Cravings Last Admin: 06/29/21 08:46 Dose: 2 mg Documented by: Trazodone HCl (Trazodone Hcl 50 Mg Tablet) 50 mg PO BEDTIME PRN PRN Reason: Insomnia Allergies Allergies Allergy/AdvReac Type Severity Reaction Status Date / Time No Known Allergies Allergy Verified 06/23/21 14:15 [No Known Allergies*] Assessment & Plan Assessment & Plan (1) MDD (major depressive disorder), recurrent episode, moderate: Status: Acute Code(s): F33.1 - Major depressive disorder, recurrent, moderate (2) Cocaine use disorder: Status: Acute Code(s): F14.10 - Cocaine abuse, uncomplicated (3) Opioid use disorder: Status: Acute Code(s): F11.90 - Opioid use, unspecified, uncomplicated Plan Roscoe is a 35 y.o. male who carries a dx of polysubstance abuse, MDD recurrent. He presented to [facility] with SI with a plan to obtain a gun from his friends and shoot himself.? Pt relapsed on heroin and cocaine, had been clean for several months but using daily x one week. Re-started on suboxone in the ED setting. Precipitating factors include he lost his job, housing instability, and he is in love with someone, which is unrequited. Plan: Pt reports positive benefit on gabapentin for anxiety and mood sx, does not want med changes, currently denies depression or SI. 06/27: No changes to tx plan 06/28: Pt continues to report benefit on gabapentin, does not want med changes. Doing well with suboxone. Q15 min safety checks, CV, 3 day notice 06/26/21 Monitor response to medications. Monitor for safety in the milieu. Discharge on stabilization. Patient seen. Chart reviewed. Discussed with team. Obtain collateral contact info?as needed I spent minutes with the patient and/or on the patient floor today, greater than?50% of which was spent counseling/coordinating care. Patient educated on: medication risk/benefits, substance abuse and therapeutic strategies Reason for contiued inpatient stay Substantial Risk for: med/psych decompensation
[2021-06-28] MEDS: hydrOXYzine HCL 25 MG TABLET PO (21:39)
[2021-06-29 06:00] VITALS: BP 131/71; PULSE 74; RESP 16; TEMP 36.6; O2SAT 98
[2021-06-29] MEDS: Buprenorphine/Naloxone 8/2 mg FILM 1 FILM SUBLINGUAL (06:31)
[2021-06-29] MEDS: Nicotine Polacrilex 2 MG GUM BUCCAL ×2 (06:33→08:46)
[2021-06-29 08:00] VITALS: PULSE 74
[2021-06-29] MEDS: Gabapentin 400 MG CAPSULE 800 MG PO (08:14)
[2021-06-29] MEDS: Multivitamin TABLET 1 TAB PO (08:14)
--- NOTE | 2021-06-29 20:28 | P.DS_ITS ---
DS: Providers Provider Date of Service: 06/29/21 Date of admission: 06/26/21 15:51 Date of discharge: 06/29/21 Primary care physician: Radha Ohara MD Admitting clinician: Lucille Lugo Attending physician on admission: Harshil Carlson Attending physician on discharge: Harshil Carlson Discharging clinician: Lucille Lugo DS: Diagnosis Discharge Diagnosis (1) MDD (major depressive disorder), recurrent episode, moderate: (2) Cocaine use disorder: (3) Opioid use disorder: DS: Medications Discharge Medications Home Medications: Home Medications Medication Instructions Recorded Confirmed buprenorphine 8 mg-naloxone 2 mg 1 strip SUBLINGUAL BID 06/23/21 06/26/21 sublingual film gabapentin 800 mg tablet 1 tab PO TID 06/23/21 06/23/21 Mental Status Exam Mental Status Exam Narrative: A&O. Casual dress, good hygiene, normal body habitus. Good eye contact, attentive. No Tics or Tremors. No abnormal involuntary movements. Calm, cooperative, engaged. Non-pressured speech, spontaneous with regular rate and rhythm, normal volume and prosody. No prolonged speech latency or dysarthria. Mood is ?good,? affect is euthymic. Denies SI/SIB/HI upon inquiry. Denies A/VH or delusional thought content. Thoughts are coherent, organized. No known cognitive or memory impairment. Insight/ Judgment fair and adequate. Data Data Completed and Pending Completed studies during hospitalization [Text1]: 06/23/21 06/23/21 06/23/21 14:45 15:20 15:20 WBC 11.7 H RBC 4.73 Hgb 14.3 Hct 43.0 MCV 90.9 MCH 30.2 MCHC 33.3 RDW 13.4 Plt Count 398 D MPV 9.1 L Immature Gran % (Auto) 0.3 Neut % (Auto) 86.6 H Lymph % (Auto) 8.1 L [place] % (Auto) 4.1 Eos % (Auto) 0.6 Baso % (Auto) 0.3 Lymph # (Auto) 1.0 L [place] # (Auto) 0.5 Eos # (Auto) 0.1 Baso # (Auto) 0.0 Abs Immat Gran (auto) 0.04 H Absolute Neuts (auto) 10.2 H Absolute Nucleated RBC 0.000 Nucleated RBC % (auto) 0.0 Sodium 134 L Potassium 5.3 H D Chloride 101 Carbon Dioxide 24 Anion Gap 14 BUN 11 Creatinine 1.00 Estim Creat Clear Calc 108.1 Estimated GFR > 60 Random Glucose 110 Calcium 9.7 Total Bilirubin 0.4 AST 19 ALT 32 Alkaline Phosphatase 60 Troponin I High Sens Total Protein 7.4 Albumin 4.2 Salicylates < 5.0 L Urine Opiates Screen Urine Fentanyl Screen Acetaminophen < 1 Ur Barbiturates Screen Ur Phencyclidine Scrn Ur Amphetamines Screen U Benzodiazepines Scrn Urine Cocaine Screen U Marijuana (THC) Screen Ethyl Alcohol COVID-19 (ART) Negative COVID-19 Clin Com See Note 06/23/21 06/23/21 06/23/21 15:20 15:20 15:27 WBC RBC Hgb Hct MCV MCH MCHC RDW Plt Count MPV Immature Gran % (Auto) Neut % (Auto) Lymph % (Auto) [place] % (Auto) Eos % (Auto) Baso % (Auto) Lymph # (Auto) [place] # (Auto) Eos # (Auto) Baso # (Auto) Abs Immat Gran (auto) Absolute Neuts (auto) Absolute Nucleated RBC Nucleated RBC % (auto) Sodium Potassium Chloride Carbon Dioxide Anion Gap BUN Creatinine Estim Creat Clear Calc Estimated GFR Random Glucose Calcium Total Bilirubin AST ALT Alkaline Phosphatase Troponin I High Sens 3.8 Total Protein Albumin Salicylates Urine Opiates Screen POSITIVE H Urine Fentanyl Screen POSITIVE H Acetaminophen Ur Barbiturates Screen Not Detected Ur Phencyclidine Scrn Not Detected Ur Amphetamines Screen Not Detected U Benzodiazepines Scrn Not Detected Urine Cocaine Screen POSITIVE H U Marijuana (THC) Screen POSITIVE H Ethyl Alcohol < 10 COVID-19 (ART) COVID-19 Gera-IT 06/23/21 06/25/21 20:49 17:54 WBC RBC Hgb Hct MCV MCH MCHC RDW Plt Count MPV Immature Gran % (Auto) Neut % (Auto) Lymph % (Auto) [place] % (Auto) Eos % (Auto) Baso % (Auto) Lymph # (Auto) [place] # (Auto) Eos # (Auto) Baso # (Auto) Abs Immat Gran (auto) Absolute Neuts (auto) Absolute Nucleated RBC Nucleated RBC % (auto) Sodium 134 L Potassium 4.7 Chloride 98 Carbon Dioxide 27 Anion Gap 14 BUN 10 Creatinine 0.93 Estim Creat Clear Calc 116.2 Estimated GFR > 60 Random Glucose 87 Calcium 9.3 Total Bilirubin 0.4 AST 16 ALT 28 Alkaline Phosphatase 54 Troponin I High Sens Total Protein 6.7 Albumin 3.8 Salicylates Urine Opiates Screen Urine Fentanyl Screen Acetaminophen Ur Barbiturates Screen Ur Phencyclidine Scrn Ur Amphetamines Screen U Benzodiazepines Scrn Urine Cocaine Screen U Marijuana (THC) Screen Ethyl Alcohol COVID-19 (ART) Negative COVID-19 Clin Com See Note DS: Summary Hospital Course Hospital Course: Roscoe is a 35 y.o. male who carries a dx of polysubstance abuse, MDD recurrent. He presented to [facility] on 06/23/21 with SI with a plan to obtain a gun from his friends and shoot himself.? Pt relapsed on IV heroin and cocaine prior to admission. States he had been clean for several months but using daily x one week. Re-started on suboxone in the ED setting. Says gabapentin 800 mg TID helps with his anxiety and mood sx. Precipitating factors include he lost his job, he has instability with his landlord, and he is in love with someone, which is unrequited. Has history of inpatient psych admissions for depression, SI, and substance abuse. Pt reports that he came to the hospital because ?I had to go somewhere to stop using,? he was at detox x one day and then came to [facility]. Pt denied suicidal ideation. Denied mood or behavioral issues. Denied concern with sleep. He did not want medication changes. Says prior to his relapse he was residing in a sober house, [facility], but he moved out on his own and relapsed. Pt was able to obtain his bed at [facility] and plans to discharge there, he considers this safe housing. Signed a 3 day notice for discharge on 06/29/21. No imminent safe ty concerns and pt?s request for discharge is honored. Time spent discussing smoking cessation with patient: 3 to 10 minutes Status at Discharge Cognitive/behavioral status at discharge: Stable, No mood or behavioral concerns. Functional status at discharge: independent ambulation Overall status at discharge: patient is progressing back to baseline Time Spent with Patient Time attestation: Total time spent providing and/or coordinating discharge services: Time spent: Less than 30 minutes Discharge Plan Discharge Patient Disposition: Home, Self-Care Discharge Diagnosis: Opioid Use Disorder, on maintenance therapy Referrals: [facility] [Other] - 06/29/21 1:00 pm (Patient discharging to sober Living arrangement ) [facility] ([facility] Patient reports he will follow-up with MAT treatment program following discharge. ) [facility] [Other] - 07/03/21 1:00 pm (Initial Diagnostic evaluation for Therapy ) [facility] [Other] - 07/23/21 1:00 pm (Initial Appointment for Psychiatric evaluation) [facility] [Other] - 08/20/21 1:00 pm (Medication Management Appointment with psychiatric provider.) Radha Ohara MD [Primary Care Provider] - 07/09/21 2:45 pm (IN OFFICE) Discharge Medications: Continued gabapentin 800 mg tablet 1 tab PO TID 0RF buprenorphine-naloxone 8-2 mg film 1 strip sublingual BID 0RF Discharge Orders: Discharge Order (Routine); Ordered 06/29/21 Ordered By: Lucille Lugo Activity on Discharge: As tolerated Stand Alone Forms: Patient Portal Discharge page, Community Support Care Plan Goals: Continue medication assisted treatment, abstain from illicit substances Health Concerns: Substance abuse Plan of Treatment: Continue medication management for anxiety and medication assisted treatment, continue sobriety. Assessment: Patient denies suicidal ideation, self harm urges, or homicidal/ assaultive ideation. No imminent safety concerns. Pt has plan to discharge to sober living and will continue on suboxone maintenance. Discharge Date/Time: 06/29/21 12:08
== END 2021-06-29 12:08 | disposition home or self-care (01) | DRG 751 ==
LOC: HO.ED 06-26 12:26 → HO.PM5 06-26 16:03
PROVIDERS: Physician Assistant; Student in an Organized Health Care Education/Training Program; Admitting Provider Psychiatry & Neurology Psychiatry; Emergency Provider Emergency Medicine; PCP Internal Medicine; Visit Provider Psychiatry & Neurology Psychiatry
DX: F33.1 Major depressive disorder, recurrent, moderate (principal); R45.851 Suicidal ideations; F14.10 Cocaine abuse, uncomplicated; F11.20 Opioid dependence, uncomplicated; Z86.19 Personal history of other infectious and parasitic diseases; Z20.822 Contact with and (suspected) exposure to COVID-19; Z79.899 Other long term (current) drug therapy
CPT/HCPCS: 36415; 80053; 80143; 80179; 80307; 82077; 84484; 85025; 87635; 93005; 99285; Q0163

== ENCOUNTER 2021-12-22 19:21 | Emergency (ER) | payer MEDICAID, SELFPAY ==
[2021-12-22 19:25] VITALS: BP 134/61; PULSE 77; RESP 18; TEMP 36.4; O2SAT 99; BMI 31.3
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
[2021-12-22] MEDS: Buprenorphine/Naloxone 8/2 mg FILM 1 FILM SUBLINGUAL (19:49)
--- OUTSIDE RECORDS SUMMARY | 2021-12-22 19:54 | XMS_ITS | Encounter Summary ---
:1985 External Reference #:[id number] Author Reason for Visit OUD - buprenorphine follow-up - monthly* Assessment and Plan Assessment Note This patient with a history of OUD prese nts today for their monthly MAT visit Current prescription is: buprenorphine/n aloxone 16/4mg films Patient denies any S/E, cravings, or wit hdrawal sx at current dose Update Since Last Visit : Weekly OUD Suboxone 8/2 mg BID Denies use of all illicit substances sin ce last visit. No adverse effects from BNX. No concerns for BNX misuse or diversion. Pt has a good network of support in sobr iety- GF is RN going to school for BUSINESS SYSTEMS MANAGER States he has self weaning off anabolic steroids. Feeling fine Not engaged in counseling at this time. Stable housing. Lives in the [facility], a sober house, on [facility]. GF is having surgery tomorrow- he is ner vous Not . Has a 3 yo daughter he sees on the weekends. New job. Working [employer]- better money- happier Currently on probation. LAB RESULTS Last UDS result (qualitative screen): PO S buprenorphine and NO illicit drugs - THC+ Last confirmatory test result (LCMS/fabian titative): N/A due to negative UDS Last Bup confirmation test result: Bup: 452 ng/ml & Norbup: 229 ng/ml Last LFT result: 08/18/20, Newly elevated LFTs - ALT 59, HCV RNA positive on 10/25/19 ASSESSMENT The patient's current phase of OUD treat ment is: Stable maintenance. Interpretation of last buprenorphine con firmation test result: No concern Medication dose: No report of severe or persistent cravings/withdrawal symptoms. Pt will remain at current dose PLAN: Rx : Continue buprenorphine/naloxone 8/ 2mg films BID Rx Quantity 28d Rx provided today. VISIT FREQUENCY Continue monthly visits with monthly UDS . Treatment plan review or change includes continue current level of care UNEXPECTED results on UDS may impact th is patient's treatment plan. The following information will be used to place the proper confirmation orders for the specimen collected for this date 11/27/2021 . Perform Confirmation if Positive Ampheta mines Perform Confirmation if Positive Benzodi azepines Perform Confirmation if Positive Cocaine Perform Confirmation if Positive Methado ne Perform Confirmation if Positive Opiates and/or Fentanyl Perform Confirmation if Positive Oxycodo ne Additional requests in regards to confi rmation orders. NONE LFTS will be repeated per our clinical p rotocol. Prescription monitoring program is fri. If applicable, I have identified agents prescribed to the patient in addition to any issued by our program. The patient has been counseled regarding any risk of combining sedating agents. 1. Opioid dependence Stable ? drug screen, urine ? Suboxone 8 mg-2 mg sublingual film Discussion Note: None recorded.Patient educational handouts: No information available. Plan of Care Reminders Provider Appointments MAT - Monthly 15 12/25/2021 4:30PM Sue Villalba Lab Drug Screen, Urine 11/27/2021 [facility] Referral None recorded. ? ? Procedures None recorded. ? ? Surgeries None recorded. ? ? Imaging None recorded. ? ? Medications Name Start Date ? ? gabapentin 800 mg tablet ? TAKE 1 TABLET BY MOUTH THREE TIMES DAILY Mavyret ? Narcan 4 mg/actuation nasal spray ? FOR SUSPECTED OPIOID OVERDOSE. SPRAY 0. 1mL IN ONE NOSTRIL. REPEAT IN ALTERNATE NOSTRIL 2-3 MINUTES IF NEEDED. SEEK MEDICAL ATTENTION IMMEDIA nicotine (polacrilex) 4 mg gum ? CHEW 1 PIECE OF GUM EVERY 2 HOURS NEEDED & DIRE CTED Suboxone 8 mg-2 mg sublingual film ? PLACE 1 FILM TWICE A DAY BY SUBLINGUAL ROUTE FOR 28 D AYS. Medications Administered None recorded. Vitals Height 5 ft 7 in Results Lab Results Date Name Specimen Result Interpretation Description Value Range Status Address ? 11/27/2021 Drug UR ? Amphetamines negative 1,000 [address] [facility] Screen, NG/mL NG/mL Health: Urine [address], [place] ? ? UR ? Benzodiazapines negative 200 Final [facility] NG/mL NG/mL Health: [address], [place] ? ? UR ? Buprenorphine positive 5 Final [facility] NG/mL NG/mL Health: [address], [place] ? ? UR ? Cocaine negative 150 Final [facility] Metabolite NG/mL NG/mL Health : [address], [place] ? ? UR ? Opiates negative 300 Final [facility] NG/mL NG/mL Health: [address], [place] ? ? UR ? Oxycodone negative 300 Final Radha da NG/mL NG/mL Health: [address], [place] ? ? UR ? Fentanyl negative 2 Final [facility] NG/mL NG/mL Health: [address], [place] ? ? UR ? Ethyl Alcohol negative 10 Final [facility] mg/dL mg/dL Health: [address], [place] ? ? UR ? Methadone negative 300 Final Radha da Metabolite NG/mL NG/mL Health : [address], [place] ? ? UR ABNORMAL Cannabinoids positive 50 Final [facility] (THC) NG/mL NG/mL Health: [address], [place] ? ? UR ? Urine Creatinine 58.6 mg/dL >20 Fi nal [facility] mg/dL Health: [address], [place] ? ? UR ? Urine pH 7.00 4.5-9. Final [facility] 0 Health: [address], [place] ? ? UR ? Specific [place] 1.014 1.003- Final [facility] 1.035 Health: [address], [place] Allergies None recorded. Problems Name Status Onset Date Source ? Opioid Dependence Active 12/07/2019 History Nicotine Dependence Active 05/08/2020 History Illicit Medication Use Active 12/20/2020 History Procedures None recorded. Vaccine List Notes: [facility] Social History Tobacco Smoking Status Former Smoker *Concern for Domestic Violence N *Social Service's Involvement with Dependent No Social Servi michele Involvement Children Has tobacco cessation counseling been provided? N *Employment Employed *Legal Assistance Not Required Do you use any illicit or recreational drugs? N *Job Training/Education/Literacy Not Needed When did you quit smoking? 1-5yearssincelastcigarette How many years have you smoked tobacco? 10 *Other Medical Issues None * Not a What is your level of alcohol consumption? None *Legal Status Probation/[place] *Food Adequate *Childcare Needed N What is your current pack years? 10packyears *Social Support Network Has Stable Support System *Custody of Dependent Children No Custody *Primary Care Provider Y What is your level of caffeine consumption? Moderate Do you or have you ever used any other forms of N tobacco or nicotine? *Transportation Issues No *Housing Stable - Safe At what age did you start smoking tobacco? 24 Functional Status Unknown. Past Encounters 11/27/2021 Opioid Dependence Sue Robles: [address] [place] [id number], Ph. 10/30/2021 Opioid Dependence Stephani Reed, BUSINESS SYSTEMS MANAGER: [address] [place] [address], Ph. History of Present Illness Note: <strong>This patient is here today for their follow-up MAT visit. They are being treated for OUD with buprenorphine.</strong>

<strong><em>PLEASE SEE A & P SECTION FOR FULL VISIT NOTE</em></strong> Review of Systems ? Comprehensive Adult Problem ROS Reported By: Patient Constitutional: Constitutional: no significa nt weight change, good appetite, no fever, normal activity le zheng, no fatigue ENMT: ENMT: no congestion, no sore throat Cardiovascular: Cardiovascular: no chest eze n Respiratory: Respiratory: no cough, no ch est tightness Gastrointestinal: GI: no abdominal pain, no na usea, no constipation Musculoskeletal: Musculoskeletal: no myalgia, moves all extremities well Skin: Skin: no rash Neurological symptoms: Neuro: no headache, no dizzi ness Psychiatric: Psych: no depression, no anx iety, no insomnia Physical Exam ? General Adult Exam* Reported By: Patient Constitutional*: General Presentation: health y-appearing, well-nourished, well-developed. Level of Dis tress:* no apparent distress (NAD)*, responsive in conversation*. Ambulation: ambulating normally Psychiatric*: Insight:* good judgement*. M gera:* recent memory normal*, remote memory normal*. Mental Statu s* active & alert*, normal affect*, normal mood* Eyes: Lids and Conjunctivae: non-i njected ENMT*: Hearing:* no hearing loss* Lungs*: Respiratory effort:* no dysp noe*, good air movement*, no audible wheezing* Musculoskeletal:: Motor Strength and Tone: nor mal motor strength. Joints, Bones, and Muscles: normal movement of all extremities Neurologic*: Orientation:* to time*, to p lace*, to person*. Gait and Station: normal gait, normal station. Cranial Nerves:* articulate: coordinated speech*
--- OUTSIDE RECORDS SUMMARY | 2021-12-22 19:54 | XMS_ITS | Encounter Summary ---
:1985 External Reference #:[id number] Author Reason for Visit OUD - buprenorphine follow-up - monthly* Assessment and Plan Assessment Note This patient with a history of OUD pres ents today for their monthly MAT visit Current prescription is: buprenorphine/n aloxone 16/4mg films Patient denies any S/E, cravings, or wit hdrawal sx at current dose Update Since Last Visit : OUD : - Initial visit : 10/11/19 - Dosing : BNX 8/2 mg BID Pt any illicit opiate use since last vis it. No adverse effects from BNX. No concerns for BNX misuse or diversion. Pt has a good network of support in sobriety. > Bio/psycho/social Update : Pt is going to get labwork updated, will look into HCV treatment necessary. Not engaged in counseling at this time. Stable housing. Lives in the [facility], a sober house, on [facility]. Not . Has a 3 yo daughter he sees on the weekends. Working at [employer]. Looking for [employer] work. Currently on probation. LAB RESULTS Last UDS result (qualitative screen): PO S buprenorphine and NO illicit drugs - THC+ Last confirmatory test result (LCMS/fabian titative): N/A due to negative UDS Last Bup confirmation test result: Bup: 529 ng/ml & Norbup: 222 ng/ml Last LFT result: 08/18/20, Newly elevated [...] for the specimen collected for this date 10/02/2021 . 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 Suboxone 8 mg-2 mg sublingual film 2. Chronic hepatitis C ? CBC w/ diff ? CMP, serum or plasma ? hepatitis A Ab, total, serum ? hepatitis C virus RNA, QN, viral load , PCR, unspecified specimen ? HBsAg (hepatitis B surface Ag), serum ? hepatitis B virus core Ab, qualitativ e, serum ? HIV 1+2 AB + HIV 1 p24 Ag, qualitativ e immunoassay, serum ? PT/INR ? liver fibrosis score panel, serum or plasma ? hepatitis B surface Ab, qualitative, serum Discussion Note: None recorded.Patient educational handouts: No information available. Plan of Care Reminders Provider Appointments MAT - Monthly 15 12/25/2021 Sue Sheikh 4:30PM Lab Drug Screen, Urine 10/02/2021 [facility] ? CBC W/ Diff 10/02/2021 [facility] ? CMP, Serum or Plasma 10/02/2021 [facility] ? Hepatitis a Ab, Total, 10/02/2021 [facility] Serum ? Hepatitis C Virus RNA, QN, 10/02/[address] [facility] Viral Load, PCR, Unspecified Specimen ? HBsAg (Hepatitis B Surface 10/02/[address] [facility] Ag), Serum ? Hepatitis B Virus Core Ab, 10/02/[address] [facility] Qualitative, Serum ? HIV 1+2 AB + HIV 1 P24 Ag, 10/02/[address] [facility] Qualitative Immunoassay, Serum ? PT/INR 10/02/2021 [facility] ? Liver Fibrosis Score Panel, 10/02/[facility]21 [facility] Serum or Plasma ? Hepatitis B Surface Ab, 10/02/2021 [facility] Qualitative, Serum Referral None recorded. ? ? Procedures None [...] Interpretation Description Value Range Status Address ? 10/02/2021 Drug UR ? Amphetamines negative 1,[address] [facility] Screen, NG/mL NG/mL Health: Urine [address], [place] ? ? UR ? Benzodiazapines negative 200 Final [facility] NG/mL NG/mL Health: [address], [place] ? ? UR ? Buprenorphine positive 5 Final [facility] NG/mL NG/mL Health: [address], [place] ? ? UR ? Cocaine negative 150 Final [facility] Metabolite NG/mL NG/mL Health : [address], [place] ? ? UR ? Opiates negative 300 Final [facility] NG/mL NG/mL Health: [address], [place] ? ? UR ? Oxycodone negative 300 Final [facility] NG/mL NG/mL Health: [address], [place] ? ? UR ? Fentanyl negative 2 Final [facility] NG/mL NG/mL Health: [address], [place] ? ? UR ? Ethyl Alcohol negative 10 Final [facility] mg/dL mg/dL Health: [address], [place] ? ? UR ? Methadone negative 300 Final [facility] Metabolite NG/mL NG/mL Health : [address], [place] ? ? UR ABNORMAL Cannabinoids positive 50 Final [facility] (THC) NG/mL NG/mL Health: [address], [place] ? ? UR ? Urine Creatinine 120.5 >20 Final [facility] mg/dL mg/dL Health: [address], [place] ? ? UR ? Urine pH 8.00 4.5-9. Final [facility] 0 Health: [address], [place] ? ? UR ? Specific Lotus 1.012 1.003- Final [facility] 1.035 Health: [address], [place] Allergies None recorded. Problems Name Status Onset Date Source ? Opioid Dependence Active 12/07/2019 History Nicotine Dependence Active 05/08/2020 History Illicit Medication Use Active 12/20/2020 History Procedures None recorded. Vaccine List Notes: LEMU[facility]ACE [facility]RU [facility] Social History Tobacco Smoking Status Former Smoker *Concern for Domestic Violence N *Social Service's Involvement with Dependent No Social Servi michele Involvement Children Has tobacco cessation counseling been provided? N *Employment Employed *Legal Assistance Not Required *Job Training/Education/Literacy Not Needed Do you use any illicit or recreational drugs? N When did you quit smoking? 1-5yearssincelastcigarette How many years have you smoked tobacco? 10 *Other Medical Issues None *[place] Not a What is your level of alcohol consumption? None *Legal Status Probation/[place] *Food Adequate *Social Support Network Has Stable Support System What is your current pack years? 10packyears *Childcare Needed N *Custody of Dependent Children No Custody *Primary Care Provider Y What is your level of caffeine consumption? Moderate Do you or have you ever used any other forms of N tobacco or nicotine? *Transportation Issues No *Housing Stable - Safe At what age did you start smoking tobacco? 24 Functional Status Unknown. Past Encounters 10/02/2021 Opioid Dependence; Chronic Hepatitis C Stephani Reed [employer]: [address] [place] [id number], Ph. 09/04/2021 Opioid Dependence Stephani Reed [employer]: [address] [place] [address], Ph. History of Present Illness Note: <strong>This [...]
--- OUTSIDE RECORDS SUMMARY | 2021-12-22 19:54 | XMS_ITS ---
:1985 External Reference #:[id number] Author Care Team Providers Name Role Phone JaredgeorgeStephani Primary Care Provider Unavailable Allergies None recorded. Medications Name Status Start Date Stop Date ? ? cephalexin 500 mg capsule Completed ? 2021 TAKE ONE CAPSULE EVERY 6 HOURS UNTIL FINISHED. cyclobenzaprine 5 mg tablet Completed ? 03/2021 TAKE 1 TABLET BY MOUTH THREE TIMES DAILY gabapentin 600 mg tablet Completed ? gabapentin 800 mg tablet Active ? Not noe ilable TAKE 1 TABLET BY MOUTH THREE TIMES DAILY Mavyret Active ? Not available nabumetone 500 mg tablet Completed ? TAKE 1 TABLET BY MOUTH TWICE DAILY NEEDED FOR PAIN Narcan 4 mg/actuation nasal spray Active ? Not available FOR SUSPECTED OPIOID OVERDOSE. SPRAY 0. 1mL IN ONE NOSTRIL. REPEAT IN ALTERNATE NOSTRIL 2-3 MINUTES IF NEEDED. SEEK MEDICAL ATTENTION IMMEDIA nicotine (polacrilex) 2 mg gum Completed ? 0 05/08/2021 CHEW 1 PIECE OF GUM EVERY 2 TO 4 HOURS NEEDED DIRECTED INSTEAD OF SMOKING APPLY CIGARETTE nicotine (polacrilex) 4 mg buccal lozenge Completed ? 05/08/2021 nicotine (polacrilex) 4 mg gum Active ? N ot available CHEW 1 PIECE OF GUM EVERY 2 HOURS NEEDED & DIRECTED Suboxone 12 mg-3 mg sublingual film Completed ? 01/25/2020 DISSOLVE 1 FILM UNDER THE TONGUE EVERY DAY Suboxone 2 mg-0.5 mg sublingual film Completed ? 01/25/2020 DISSOLVE 3 FILMS UNDER THE TONGUE EVERY DAY Suboxone 8 mg-2 mg sublingual film Active ? Not available PLACE 1 FILM TWICE A DAY BY SUBLINGUAL ROUTE FOR 28 DAYS. sulfamethoxazole 800 mg-trimethoprim 160 mg tablet Completed ? 05/08/2021 TAKE 1 TABLET TWICE DAILY Problems Name Status Onset Date Source ? Opioid Dependence Active 12/07/2019 History Nicotine Dependence Active 05/08/2020 History Illicit Medication Use Active 12/20/2020 History Procedures None recorded. Results Lab Results Date Name Specimen Result Interpretation Description Value Range Status Address ? 11/27/2021 Drug UR ? Amphetamines negative NG/mL 1,000 Final [place] Screen, NG/mL Health: Urine [address], [place] ? ? UR ? Benzodiazapines negative NG/mL 200 Final [place] NG/mL Health: [address], [place] ? ? UR ? Buprenorphine positive NG/mL 5 F inal [place] NG/mL Health: [address], [place] ? ? UR ? Cocaine negative NG/mL 150 Final [place] Metabolite NG/mL Health : [address], [place] ? ? UR ? Opiates negative NG/mL 300 Final [place] NG/mL Health: [address], [place] ? ? UR ? Oxycodone negative NG/mL 300 Final [place] NG/mL Health: [address], [place] ? ? UR ? Fentanyl negative NG/mL 2 Final [place] NG/mL Health: [address], [place] ? ? UR ? Ethyl Alcohol negative mg/dL 10 F inal [place] mg/dL Health: [address], [place] ? ? UR ? Methadone negative NG/mL 300 Final [place] Metabolite NG/mL Health : [address], [place] ? ? UR ABNORMAL Cannabinoids positive NG/mL 50 Final [place] (THC) NG/mL Health: [address], [place] ? ? UR ? Urine Creatinine 58.6 mg/dL >20 Fi nal [place] mg/dL Health: [address], [place] ? ? UR ? Urine pH 7.00 4.5-9. Final [place] 0 Health: [address], [place] ? ? UR ? Specific [place] 1.014 1.003- Final [place] 1.035 Health: [address] 11/27/2021 Drug UR ? Buprenorphine 51.6 NG/mL 10 F inal [place] Confirma NG/mL Health: tion, 12 [address], [place] ? ? UR ? Norbuprenorphine 125.4 NG/mL 10 F inal [place] NG/mL Health: [address], [place] ? ? UR ? Legend abbreviations ? Final Sa breann Health: [address], [place] ? ? UR ? Billing Only billing only ? Oneyda Eganida ([id number]) Health: [address] 10/30/2021 Drug UR ? Amphetamines negative NG/mL 1,000 Final [facility] Screen, NG/mL Health: Urine [address], [place] ? ? UR ? Benzodiazapines negative NG/mL 200 Final [place] NG/mL Health: [address], [place] ? ? UR ? Buprenorphine positive NG/mL 5 F inal [place] NG/mL Health: [address], [place] ? ? UR ? Cocaine negative NG/mL 150 Final [place] Metabolite NG/mL Health : [address], [place] ? ? UR ? Opiates negative NG/mL 300 Final [place] NG/mL Health: [address], [place] ? ? UR ? Oxycodone negative NG/mL 300 Final [place] NG/mL Health: [address], [place] ? ? UR ? Fentanyl negative NG/mL 2 Final [place] NG/mL Health: [address], [place] ? ? UR ? Ethyl Alcohol negative mg/dL 10 F inal [place] mg/dL Health: [address], [place] ? ? UR ? Methadone negative NG/mL 300 Final [place] Metabolite NG/mL Health : [address], [place] ? ? UR ABNORMAL Cannabinoids positive NG/mL 50 Final [place] (THC) NG/mL Health: [address], [place] ? ? UR ? Urine Creatinine 268.6 mg/dL >20 F inal [place] mg/dL Health: [address], [place] ? ? UR ? Urine pH 7.40 4.5-9. Final [place] 0 Health: [address], [place] ? ? UR ? Specific [place] 1.021 1.003- Final [place] 1.035 Health: 12 [address] 10/30/2021 Drug UR ? Buprenorphine 451.7 NG/mL 10 Final [place] Confirma NG/mL Health: tion, 12 Urine [address], [place] ? ? UR ? Norbuprenorphine 229.2 NG/mL 10 F inal [place] NG/mL Health: [address], [place] ? ? UR ? Legend abbreviations ? Final Sa breann Health: [address], [place] ? ? UR ? Billing Only billing only ? Oneyda granados [place] ([id number]) Health: 12 [address] 10/02/2021 Drug UR ? Amphetamines negative NG/mL 1,000 Final [facility] Screen, NG/mL Health: Urine [address], [place] ? ? UR ? Benzodiazapines negative NG/mL 200 Final [place] NG/mL Health: [address], [place] ? ? UR ? Buprenorphine positive NG/mL 5 F inal [place] NG/mL Health: [address], [place] ? ? UR ? Cocaine negative NG/mL 150 Final [place] Metabolite NG/mL Health : [address], [place] ? ? UR ? Opiates negative NG/mL 300 Final [place] NG/mL Health: [address], [place] ? ? UR ? Oxycodone negative NG/mL 300 Final [place] NG/mL Health: [address], [place] ? ? UR ? Fentanyl negative NG/mL 2 Final [place] NG/mL Health: [address], [place] ? ? UR ? Ethyl Alcohol negative mg/dL 10 F inal [place] mg/dL Health: [address], [place] ? ? UR ? Methadone negative NG/mL 300 Final [place] Metabolite NG/mL Health : [address], [place] ? ? UR ABNORMAL Cannabinoids positive NG/mL 50 Final [place] (THC) NG/mL Health: [address], [place] ? ? UR ? Urine Creatinine 120.5 mg/dL >20 F inal [place] mg/dL Health: [address], [place] ? ? UR ? Urine pH 8.00 4.5-9. Final [place] 0 Health: [address], [place] ? ? UR ? Specific [place] 1.012 1.003- Final [place] 1.035 Health: [address], [place] 10/02/2021 Drug UR ? Buprenorphine 207.4 NG/mL 10 Final [place] Confirma NG/mL Health: tion, [address], [place] ? ? UR ? Norbuprenorphine 229.6 NG/mL 10 F inal [place] NG/mL Health: [address], [place] ? ? UR ? Legend abbreviations ? Final Sa breann Health: [address], [place] ? ? UR ? Billing Only billing only ? Oneyda l [place] ([id number]) Health: [address], [place] 09/04/2021 Drug UR ? Amphetamines negative NG/mL 1,000 Final [facility] Screen, NG/mL Health: Urine [address], [place] ? ? UR ? Benzodiazapines negative NG/mL 200 Final [place] NG/mL Health: [address], [place] ? ? UR ? Buprenorphine positive NG/mL 5 F inal [place] NG/mL Health: [address], [place] ? ? UR ? Cocaine negative NG/mL 150 Final [place] Metabolite NG/mL Health : [address], [place] ? ? UR ? Opiates negative NG/mL 300 Final [place] NG/mL Health: [address], [place] ? ? UR ? Oxycodone negative NG/mL 300 Final [place] NG/mL Health: [address], [place] ? ? UR ? Fentanyl negative NG/mL 2 Final [place] NG/mL Health: [address], [place] ? ? UR ? Ethyl Alcohol negative mg/dL 10 F inal [place] mg/dL Health: [address], [place] ? ? UR ? Methadone negative NG/mL 300 Final [place] Metabolite NG/mL Health : [address], [place] ? ? UR ABNORMAL Cannabinoids positive NG/mL 50 Final [place] (THC) NG/mL Health: [address], [place] ? ? UR ? Urine Creatinine 266.8 mg/dL >20 F inal [place] mg/dL Health: [address], [place] ? ? UR ? Urine pH 6.80 4.5-9. Final [place] 0 Health: [address], [place] ? ? UR ? Specific [place] 1.030 1.003- Final [place] 1.035 Health: [address] 09/04/2021 Drug UR ? Buprenorphine 529.0 NG/mL 10 Final [place] Confirma NG/mL Health: tion, 12 Urine [address], [place] ? ? UR ? Norbuprenorphine 222.8 NG/mL 10 F inal [place] NG/mL Health: [address], [place] ? ? UR ? Legend abbreviations ? Final Sa breann Health: [address], [place] ? ? UR ? Billing Only billing only ? Oneyda granados [place] ([id number]) Health: [address] 08/07/2021 Drug UR ? Amphetamines negative NG/mL 1,000 Final [facility] Screen, NG/mL Health: Urine [address], [place] ? ? UR ? Benzodiazapines negative NG/mL 200 Final [place] NG/mL Health: [address], [place] ? ? UR ? Buprenorphine positive NG/mL 5 F inal [place] NG/mL Health: [address], [place] ? ? UR ? Cocaine negative NG/mL 150 Final [place] Metabolite NG/mL Health : [address], [place] ? ? UR ? Opiates negative NG/mL 300 Final [place] NG/mL Health: [address], [place] ? ? UR ? Oxycodone negative NG/mL 300 Final [place] NG/mL Health: [address], [place] ? ? UR ? Fentanyl negative NG/mL 2 Final [place] NG/mL Health: [address], [place] ? ? UR ? Ethyl Alcohol negative mg/dL 10 F inal [place] mg/dL Health: [address], [place] ? ? UR ? Methadone negative NG/mL 300 Final [place] Metabolite NG/mL Health : [address], [place] ? ? UR ABNORMAL Cannabinoids positive NG/mL 50 Final [place] (THC) NG/mL Health: [address], [place] ? ? UR ? Urine Creatinine 187.0 mg/dL >20 F inal [place] mg/dL Health: [address], [place] ? ? UR ? Urine pH 8.30 4.5-9. Final [place] 0 Health: [address], [place] ? ? UR ? Specific [place] 1.016 1.003- Final [place] 1.035 Health: 12 [address] 08/07/2021 Drug UR ? Buprenorphine 46.5 NG/mL 10 F inal [place] Confirma NG/mL Health: tion, 12 Urine [address], [place] ? ? UR ? Norbuprenorphine 46.3 NG/mL 10 Fi nal [place] NG/mL Health: [address], [place] ? ? UR ? Legend abbreviations ? Final Sa breann Health: [address], [place] ? ? UR ? Billing Only billing only ? Oneyda l [place] ([id number]) Health: [address] [place] 07/09/2021 Drug UR ? Amphetamines negative NG/mL 1,000 Final [facility] Screen, NG/mL Health: Urine [address], [place] ? ? UR ? Benzodiazapines negative NG/mL 200 Final [place] NG/mL Health: [address], [place] ? ? UR ? Buprenorphine positive NG/mL 5 F inal [place] NG/mL Health: [address], [place] ? ? UR ? Cocaine negative NG/mL 150 Final [place] Metabolite NG/mL Health : [address], [place] ? ? UR ? Opiates negative NG/mL 300 Final [place] NG/mL Health: [address], [place] ? ? UR ? Oxycodone negative NG/mL 300 Final [place] NG/mL Health: [address], [place] ? ? UR ? Fentanyl negative NG/mL 2 Final [place] NG/mL Health: [address], [place] ? ? UR ? Ethyl Alcohol negative mg/dL 10 F inal [place] mg/dL Health: [address], [place] ? ? UR ? Methadone negative NG/mL 300 Final [place] Metabolite NG/mL Health : [address], [place] ? ? UR ABNORMAL Cannabinoids positive NG/mL 50 Final [place] (THC) NG/mL Health: [address], [place] ? ? UR ? Urine Creatinine 314.8 mg/dL >20 F inal [place] mg/dL Health: [address], [place] ? ? UR ? Urine pH 5.80 4.5-9. Final [place] 0 Health: [address], [place] ? ? UR ? Specific [place] 1.033 1.003- Final [place] 1.035 Health: [address], [place] 07/09/2021 Drug UR ? Buprenorphine 1434.5 NG/mL 10 Final [place] Confirma NG/mL Health: tion, [address], [place] ? ? UR ? Norbuprenorphine 313.1 NG/mL 10 F inal [place] NG/mL Health: [address], [place] ? ? UR ? Legend abbreviations ? Final Sa breann Health: [address], [place] ? ? UR ? Billing Only billing only ? Oneyda l [place] ([id number]) Health: [address], [place] 06/05/2021 Drug UR ? Amphetamines negative NG/mL 1,000 Final [place] Screen, NG/mL Health: Urine [address], [place] ? ? UR ? Benzodiazapines negative NG/mL 200 Final [place] NG/mL Health: [address], [place] ? ? UR ? Buprenorphine positive NG/mL 5 F inal [place] NG/mL Health: [address], [place] ? ? UR ABNORMAL Cocaine positive NG/mL 150 Final [place] Metabolite NG/mL Health : [address], [place] ? ? UR ? Opiates negative NG/mL 300 Final [place] NG/mL Health: [address], [place] ? ? UR ? Oxycodone negative NG/mL 300 Final [place] NG/mL Health: [address], [place] ? ? UR ? Fentanyl negative NG/mL 2 Final [place] NG/mL Health: [address], [place] ? ? UR ? Ethyl Alcohol negative mg/dL 10 F inal [place] mg/dL Health: [address], [place] ? ? UR ? Methadone negative NG/mL 300 Final [place] Metabolite NG/mL Health : [address], [place] ? ? UR ABNORMAL Cannabinoids positive NG/mL 50 Final [place] (THC) NG/mL Health: [address], [place] ? ? UR ? Urine Creatinine 161.8 mg/dL >20 F inal [place] mg/dL Health: [address], [place] ? ? UR ? Urine pH 7.30 4.5-9. Final [place] 0 Health: [address], [place] ? ? UR ? Specific [place] 1.024 1.003- Final [place] 1.035 Health: [address], [place] 06/05/2021 Drug UR ? Buprenorphine atr NG/mL 20 Fi nal [place] Confirma NG/mL Health: tion, [address], [place] ? ? UR ? Norbuprenorphine atr NG/mL 50 Fin al [place] NG/mL Health: [address], [place] ? ? UR ? Legend abbreviations ? Final Sa breann Health: [address], [place] ? ? UR ? Billing Only billing only ? Oneyda l [place] ([id number]) Health: [address], [place] 06/05/2021 Cocaine UR High Benzoylecgonine 173.2 NG/mL 100 Final [facility] Metaboli NG/mL Health: larry, [address], Urine [place] ? ? UR ? Legend abbreviations ? Final Sa breann Health: [address], [place] 06/05/2021 Drug ? Buprenorphine 263.8 NG/mL 10 Final [place] Confirma NG/mL Health: tion, [address], [place] ? ? ? Norbuprenorphine 170.2 NG/mL 10 F inal [place] NG/mL Health: [address], [place] ? ? ? Legend abbreviations ? Final Sa breann Health: [address], [place] 05/08/2021 Drug UR ? Amphetamines negative NG/mL 1,000 Final [place] Screen, NG/mL Health: Urine [address], [place] ? ? UR ? Benzodiazapines negative NG/mL 200 Final [place] NG/mL Health: [address], [place] ? ? UR ? Buprenorphine positive NG/mL 5 F inal [place] NG/mL Health: [address], [place] ? ? UR ? Cocaine negative NG/mL 150 Final [place] Metabolite NG/mL Health : [address], [place] ? ? UR ? Opiates negative NG/mL 300 Final [place] NG/mL Health: [address], [place] ? ? UR ? Oxycodone negative NG/mL 300 Final [place] NG/mL Health: [address], [place] ? ? UR ? Fentanyl negative NG/mL 2 Final [place] NG/mL Health: [address], [place] ? ? UR ABNORMAL Ethyl Alcohol positive mg/dL 10 Final [place] mg/dL Health: [address], [place] ? ? UR ? Methadone negative NG/mL 300 Final [place] Metabolite NG/mL Health : [address], [place] ? ? UR ABNORMAL Cannabinoids positive NG/mL 50 Final [place] (THC) NG/mL Health: [address], [place] ? ? UR ? Urine Creatinine 215.1 mg/dL >20 F inal [place] mg/dL Health: [address], [place] ? ? UR ? Urine pH 5.90 4.5-9. Final [place] 0 Health: [address], [place] ? ? UR ? Specific [place] 1.021 1.003- Final [place] 1.035 Health: [address], [place] 05/08/2021 Drug UR ? Buprenorphine 247.7 NG/mL 10 Final [place] Confirma NG/mL Health: tion, [address], [place] ? ? UR ? Norbuprenorphine 176.7 NG/mL 10 F inal [place] NG/mL Health: [address], [place] ? ? UR ? Legend abbreviations ? Final Sa breann Health: [address], [place] ? ? UR ? Billing Only billing only ? Oneyda l [place] ([id number]) Health: [address], [place] 04/10/2021 Drug UR ? Amphetamines negative NG/mL 1,000 Final [place] Screen, NG/mL Health: Urine [address], [place] ? ? UR ? Benzodiazapines negative NG/mL 200 Final [place] NG/mL Health: [address], [place] ? ? UR ? Buprenorphine positive NG/mL 5 F inal [place] NG/mL Health: [address], [place] ? ? UR ? Cocaine negative NG/mL 150 Final [place] Metabolite NG/mL Health : [address], [place] ? ? UR ? Opiates negative NG/mL 300 Final [place] NG/mL Health: [address], [place] ? ? UR ? Oxycodone negative NG/mL 300 Final [place] NG/mL Health: [address], [place] ? ? UR ? Fentanyl negative NG/mL 2 Final [place] NG/mL Health: [address], [place] ? ? UR ? Ethyl Alcohol negative mg/dL 10 F inal [place] mg/dL Health: [address], [place] ? ? UR ? Methadone negative NG/mL 300 Final [place] Metabolite NG/mL Health : [address], [place] ? ? UR ? Urine Creatinine 98.4 mg/dL >20 Fi nal [place] mg/dL Health: [address], [place] ? ? UR ? Urine pH 7.80 4.5-9. Final [place] 0 Health: [address], [place] ? ? UR ? Specific [place] 1.016 1.003- Final [place] 1.035 Health: [address], [place] 04/10/2021 Drug UR ? Buprenorphine 148.6 NG/mL 10 Final [place] Confirma NG/mL Health: tion, [address], [place] ? ? UR ? Norbuprenorphine 348.3 NG/mL 10 F inal [place] NG/mL Health: [address], [place] ? ? UR ? Legend abbreviations ? Final Sa breann Health: [address], [place] ? ? UR ? Billing Only billing only ? Oneyda granados [place] ([id number]) Health: [address], [place] 03/12/2021 Drug UR ? Amphetamines negative NG/mL 1,000 Final [place] Screen, NG/mL Health: Urine [address], [place] ? ? UR ? Benzodiazapines negative NG/mL 200 Final [place] NG/mL Health: [address], [place] ? ? UR ? Buprenorphine positive NG/mL 5 F inal [place] NG/mL Health: [address], [place] ? ? UR ? Cocaine negative NG/mL 150 Final [place] Metabolite NG/mL Health : [address], [place] ? ? UR ? Opiates negative NG/mL 300 Final [place] NG/mL Health: [address], [place] ? ? UR ? Oxycodone negative NG/mL 300 Final [place] NG/mL Health: [address], [place] ? ? UR ? Fentanyl negative NG/mL 2 Final [place] NG/mL Health: [address], [place] ? ? UR ? Ethyl Alcohol negative mg/dL 10 F inal [place] mg/dL Health: [address], [place] ? ? UR ? Methadone negative NG/mL 300 Final [place] Metabolite NG/mL Health : [address], [place] ? ? UR ? Urine Creatinine 200.8 mg/dL >20 F inal [place] mg/dL Health: [address], [place] ? ? UR ? Urine pH 8.30 4.5-9. Final [place] 0 Health: [address], [place] ? ? UR ? Specific [place] 1.022 1.003- Final [place] 1.035 Health: [address] 03/12/2021 Drug UR ? Buprenorphine 385.3 NG/mL 10 Final [place] Confirma NG/mL Health: tion, 12 [address], [place] ? ? UR ? Norbuprenorphine 210.3 NG/mL 10 F inal [place] NG/mL Health: [address], [place] ? ? UR ? Legend abbreviations ? Final Sa breann Health: [address], [place] ? ? UR ? Billing Only billing only ? Oneyda l [place] ([id number]) Health: [address] Past Encounters 11/27/2021 Opioid Dependence Sue Robles: [address] [place] [phone], Ph. 10/30/2021 Opioid Dependence Stephani Reed, WATERSHED COORDINATOR: [address] [place] [address], Ph. 10/02/2021 Opioid Dependence; Chronic Hepatitis C Stephani Reed, WATERSHED COORDINATOR: [address] [place] [address], Ph. 09/04/2021 Opioid Dependence Stephani Reed, WATERSHED COORDINATOR: [address] [place] [address], Ph. 08/07/2021 Opioid Dependence Stephani Reed, WATERSHED COORDINATOR: [address] [place] [address], Ph. 07/09/2021 Opioid Dependence; Cocaine Abuse Stephani Reed, WATER[place]ED COORDINATOR: [address] [place] [address], Ph. 06/05/2021 Opioid Dependence; Nicotine Dependence Sue Robles: [address] [place] [address], Ph. 05/08/2021 Opioid Dependence Sue Robles: [address] [place] [address], Ph. 04/10/2021 Opioid Dependence Stephani Reed, WATER[place]ED COORDINATOR: [address] [place] [address], Ph. 03/12/2021 Opioid Dependence Stephani Reed, WATER[place]ED COORDINATOR: [address] [place] [address], Ph. 02/12/2021 Stephani Reed, WATERSHED COORDINATOR: [address] [place] [address], Ph. 01/16/2021 Stephani Reed, WATERSHED COORDINATOR: [address] [place] [address], Ph. 12/19/2020 Stephani Reed, WATERSHED COORDINATOR: [address] [place] [address], Ph. 11/21/2020 Stephani Reed, WATERSHED COORDINATOR: [address] [place] [address], Ph. 10/24/2020 Margaret Bird, WATER[place]ED COORDINATOR: [address] [facility], [place] [address], Ph. 09/26/2020 Margaret Bird, WATER[place]ED COORDINATOR: [address] [facility], [place] [address], Ph. 08/30/2020 Margaret Bird, WATERSHED COORDINATOR: [address] [facility], [place] [address], Ph. 08/02/2020 Margaret Bird, WATERSHED COORDINATOR: [address] [facility], [place] [address], Ph. 07/06/2020 Margaret Bird, WATERSHED COORDINATOR: [address] [facility], [place] [address], Ph. Social History Tobacco Smoking Status Former Smoker Vaccine List Notes: LEMUEL PETERS [facility]RU [facility] Plan of Care Patient Instructions As part of your individualized treatmen t plan and program requirement, you will need to bring your correct prescription bottle and all used and unused medication and counseling verification to each appointment; > Agree to participate in counseling and bring counseling verification to each appointment; > Agree to present for random visits; > Agree to not falsify your urine specim ens. As part of your individualized treatmen t plan and program requirement, you will need to bring your correct prescription bottle and all used and unused medication and counseling verification to each appointment; > Agree to participate in counseling and bring counseling verification to each appointment; > Agree to present for random visits; > Agree to not falsify your urine specim ens. Reminders Provider Appointments None recorded. ? ? Lab None recorded. ? ? Referral None recorded. ? ? Procedures None recorded. ? ? Surgeries None recorded. ? ? Imaging None recorded. ? ? Vitals 11/27/2021 04:30PM MAT - Monthly 15 Height 5 ft 7 in 10/02/2021 04:45PM MAT - Monthly 15 Height 5 ft 7 in 09/04/2021 04:45PM MAT - Monthly 15 Height 5 ft 7 in 07/09/2021 02:15PM MAT - Monthly 15 Height 5 ft 7 in 06/05/2021 04:45PM MAT - Monthly 15 Height 5 ft 7 in 05/08/2021 04:45PM MAT - Monthly 15 Height 5 ft 7 in 04/10/2021 04:30PM MAT - Monthly 15 Height 5 ft 7 in 03/12/2021 04:30PM MAT - Monthly 15 Height 5 ft 7 in 02/12/2021 Height 5 ft 7 in 01/16/2021 Height 5 ft 7 in 12/19/2020 Height 5 ft 7 in 11/21/2020 Height 5 ft 7 in 06/06/2020 Height Weight BMI 5 ft 7 in 189 lbs 29.6 kg/m2 05/08/2020 Height Weight BMI 5 ft 7 in 189 lbs 29.6 kg/m2 04/24/2020 Height Weight BMI 5 ft 7 in 188 lbs 29.4 kg/m2 03/28/2020 Height Weight BMI 5 ft 7 in 188 lbs 29.4 kg/m2 03/14/2020 Height Weight BMI 5 ft 7 in 187 lbs 29.3 kg/m2 02/29/2020 Height Weight BMI 5 ft 7 in 187 lbs 29.3 kg/m2 02/08/2020 Height Weight BMI 5 ft 7 in 187 lbs 29.3 kg/m2 01/25/2020 Height Weight BMI 5 ft 7 in 186 lbs 29.1 kg/m2 01/11/2020 Height Weight BMI 5 ft 7 in 186 lbs 29.1 kg/m2 01/04/2020 Height Weight BMI 5 ft 7 in 186 lbs 29.1 kg/m2 12/28/2019 Height Weight BMI 5 ft 7 in 185 lbs 29 kg/m2 12/14/2019 Height Weight BMI 5 ft 7 in 185 lbs 29 kg/m2 12/07/2019 Height Weight BMI 5 ft 7 in 184 lbs 28.8 kg/m2 11/30/2019 Height Weight BMI 5 ft 7 in 185 lbs 29 kg/m2 11/23/2019 Height Weight BMI 5 ft 7 in 185 lbs 29 kg/m2 11/17/2019 Height Weight BMI 5 ft 7 in 184 lbs 28.8 kg/m2 11/08/2019 Height Weight BMI 5 ft 7 in 184 lbs 28.8 kg/m2 11/01/2019 Height Weight BMI 5 ft 7 in 180 lbs 28.2 kg/m2 10/25/2019 Height Weight BMI 5 ft 7 in 180 lbs 28.2 kg/m2 10/18/2019 Height Weight BMI 5 ft 7 in 180 lbs 28.2 kg/m2 10/11/2019 Height Weight BMI 5 ft 7 in 180 lbs 28.2 kg/m2
--- OUTSIDE RECORDS SUMMARY | 2021-12-22 19:54 | XMS_ITS | Encounter Summary ---
[...] [facility], a sober house, on [facility]. Not . Has a 3 yo daughter he sees on the weekends. New job. Working [employer]. Currently on probation. Going to [employer] this week. LAB RESULTS Last UDS result (qualitative screen): PO S buprenorphine and NO illicit drugs - THC+ Last confirmatory test result (LCMS/fabian titative): N/A due to negative UDS Last Bup confirmation test result: Bup: 207 ng/ml & Norbup: 229 ng/ml Last LFT [...] for the specimen collected for this date 10/30/2021 . Perform Confirmation if Positive Ampheta mines [...] 4:30PM Sue Villalba Lab Drug Screen, Urine 10/30/2021 [facility] Referral None recorded. ? [...] D AYS. Medications Administered None recorded. Vitals None recorded. Results Lab Results Date Name Specimen Result Interpretation Description Value Range Status Address ? 10/30/2021 Drug UR ? Amphetamines negative 1,[address] [place] Screen, NG/mL NG/mL Health: Urine [address], [place] ? ? UR ? Benzodiazapines negative 200 Final [facility] NG/mL NG/mL Health: [address], [place] ? ? UR ? Buprenorphine positive 5 Final [place] NG/mL NG/mL Health: [address], [place] ? ? UR ? Cocaine negative 150 Final [facility] Metabolite NG/mL NG/mL Health : [address], [place] ? ? UR ? Opiates negative 300 Final [place] NG/mL NG/mL Health: [address], [place] ? ? UR ? Oxycodone negative 300 Final Radha da NG/mL NG/mL Health: [address], [place] ? ? UR ? Fentanyl negative 2 Final [facility] a NG/mL NG/mL Health: [address], [place] ? ? UR ? Ethyl Alcohol negative 10 Final [facility] mg/dL mg/dL Health: [address], [place] ? ? UR ? Methadone negative 300 Final Radha da Metabolite NG/mL NG/mL Health : [address], [place] ? ? UR ABNORMAL Cannabinoids positive 50 Final [facility] (THC) NG/mL NG/mL Health: [address], [place] ? ? UR ? Urine Creatinine 268.6 >20 Final [facility] mg/dL mg/dL Health: [address], [place] ? ? UR ? Urine pH 7.40 4.5-9. Final [facility] 0 Health: [address], [place] ? ? UR ? Specific [place] 1.021 1.003- Final [facility] 1.035 Health: [address], [place] Allergies None recorded. Problems Name Status Onset Date Source ? Opioid Dependence Active 12/07/2019 History Nicotine Dependence Active 05/08/2020 History Illicit Medication Use Active 12/20/2020 History Procedures None recorded. Vaccine List Notes: [facility]RU [facility] Social History Tobacco Smoking Status Former Smoker [...] smoked tobacco? 10 *Other Medical Issues None *[place] Not a What is your level of alcohol consumption? None *Legal Status Probation/[place] *Food Adequate *Social Support Network Has Stable [...] tobacco? 24 Functional Status Unknown. Past Encounters 10/30/2021 Opioid Dependence Stephani Reed, [employer]IAN: [address] [place] [address], Ph. 10/02/2021 Opioid Dependence; Chronic Hepatitis C Stephani Reed, G[employer]ERN[employer]RARIAN: [address] [place] [address], Ph. History of Present Illness Note: <strong>This [...]
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
== END 2021-12-22 20:18 | disposition home or self-care (01) ==
PROVIDERS: Emergency Provider Student in an Organized Health Care Education/Training Program
DX: F11.20 Opioid dependence, uncomplicated (principal)
CPT/HCPCS: 99282; 99283; 99285

== ENCOUNTER 2023-04-02 12:47 | Emergency (ER) | payer MEDICAID, SELFPAY ==
--- NOTE | 2023-04-02 13:01 | ED_ITS ---
HPI - Nausea/Vomiting/Diarrhea General Chief complaint: Abdominal Pain Stated complaint: Diarrhea Time Seen by Provider: 04/02/23 17:58 Source: patient, RN notes reviewed and old records reviewed Mode of arrival: ambulatory Limitations: no limitations History of Present Illness HPI Narrative: 37-year-old male presents for evaluation of diarrhea. Patient reports his diarrhea started about 4 days ago He states that on the 1st day he took some Imodium and his symptoms improved for the next couple of days Last night he reports his symptoms worsened with diarrhea starting late at night and going about 15 times today He describes his will as ?very watery. ? He has some mild abdominal discomfort that tends to be worse before he has a bowel movement He denies any bloody stool Patient denies any recent antibiotic use or recent travel He denies any fevers or chills Any active bloody stool he states ?sometimes during intercourse, my partner stimulating the prostate and then I have some rectal bleeding. ? He states that he has not had any rectal bleeding last few weeks but is just mentioning it due to his diarrhea. Associated nausea: No Related Data Home Medications Medication Instructions Recorded Confirmed buprenorphine 8 mg-naloxone 2 mg 1 strip sublingual BID 06/23/21 06/26/21 sublingual film gabapentin 800 mg tablet 1 tab PO TID 06/23/21 06/23/21 Previous Rx's Medication Instructions Recorded buprenorphine 8 mg-naloxone 2 mg 2 film sublingual DAILY #4 ea 12/22/21 sublingual film (Suboxone) vancomycin 125 mg capsule 125 mg PO QID #40 caps 04/02/23 Allergies Allergy/AdvReac Type Severity Reaction Status Date / Time No Known Allergies Allergy Verified 04/02/23 14:55 [No Known Allergies*] Review of Systems 2 Constitutional: Constitutional: Denies body ache(s), Denies chills and Denies fever(s) Eyes: Eyes: Denies blurry vision ENT: Denies sore throat Cardiovascular: Cardiovascular: Denies chest pain and Denies dyspnea Respiratory: Respiratory: Denies cough and Denies dyspnea Gastrointestinal: Gastrointestinal: Reports abdominal pain, Denies hematochezia, Reports diarrhea, Reports loose stools, Denies nausea and Denies vomiting Musculoskeletal: Musculoskeletal: Denies back pain Integumentary/Breasts: Skin/Breast: Denies rash PMFSH Past Medical History Medical History (Updated 04/02/23 @ 18:26 by Joseph Tovar) Opioid use disorder Cocaine use disorder MDD (major depressive disorder), recurrent episode, moderate Suicidal ideation Opiate abuse, episodic Hepatitis C Social History Social History (System 04/02/23 @ 14:55 by Elba Hernández) Household Members: None Housing: Other Housing Other:: sober living Do you presently have visiting nurse or other home services: No Patient Tobacco Use Status: Former Tobacco user e-Cigarette/Vaping Use: Former Use Second Hand Smoke Exposure: No Substance Use Type: Crack/Cocaine and Opiates Advance Directives: No service: No Sexual orientation: Straight/Heterosexual Physical Exam 2 Vital Signs: Vital Signs: Last Vital Signs Temp 96.9 F 04/02/23 13:03 Pulse 69 04/02/23 17:50 Resp 18 04/02/23 17:50 BP 150/71 H 04/02/23 17:50 Pulse Ox 97 04/02/23 17:50 O2 Del Method Room Air 04/02/23 17:50 BMI result Body Mass Index 33.8 Const: General: healthy appearing, comfortable, no acute distress, alert and awake Nutritional Appearance: well nourished Orientation/consciousness: p atient oriented x3 HEENT: Head: Yes normocephalic and Yes atraumatic Eyes: Eyelids: Yes eyelids normal Conjunctivae: conjunctivae normal S clerae: sclerae normal Corneas: corneas normal Pupils: Equal, round and reactive pupils present EOM: EOMs intact bilaterally Neck: Neck: Yes full ROM Resp: Effort & Inspection: normal respiratory effort, able to speak in complete sentences and not labored GI: Inspection: No distended Palpation (GI): Soft to palpation, not firm, nontender, no guarding and not rigid Skin: General skin exam: elasticity normal Neuro: General: patient oriented x3 Cranial nerves: Yes Equal, round and reactive pupils present and Yes Bilaterally intact EOM present Cognition (Neuro): normal cognition Course Course Course Narrative: RME: 37 year-old M w/no sig PMHx presenting to the ED c/o watery diarrhea about 10-15 episodes daily and abdominal pain x4 days. no Abx use. denies brbpr or melena. 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 denies travel Labs, UA, stool studies ordered Full HPI, ROS and PE to be performed by primary ED provider. Medications Administered Discontinued Medications Generic Name Dose Route Start Last Admin Trade Name Bruna PRN Reason Stop Dose Admin Vancomycin HCl 500 mg 04/02/23 18:23 04/02/23 19:16 Vancomycin Hcl 125 Mg Capsule PO 04/02/23 18:24 500 mg ONCE ONE Administration Medical Decision Making Medical Decision Making [facility] Narrative: Patient presents for 4 days of diarrhea, he tested positive for C diff toxin. Has no risk factors for C diff. However given the 4 days of watery diarrhea and the positive test we will treat. The patient is not septic, he does not appear dehydrated, his abdomen is nontender, nondistended. I do not see any indication for CT imaging this time. The C diff explain his abdominal pain/cramping as well as diarrhea. He has no bloody stool. Will treat with vancomycin p.o. q.i.d.. Patient be referred to GI for a consultation near future for a colonoscopy. The patient should not undergo this while he has an active colitis. He was made aware of this. Differential Diagnosis Differential Diagnoses: The differential diagnosis associated with the presentation includes C diff colitis Chronic diarrhea Acute diarrhea Ulcerative colitis IBD BIB Sepsis less likely Admission/Observation Consideration of admission/observation: Escalation of care including admission/observation considered Patient tested positive for C diff, however his vitals are stable, labs are reassuring. There is no indication for admission at this time Lab Data [facility] Lab Attestation statement: I reviewed the patient's lab results. No leukocytosis or anemia. No significant electrolyte abnormalities. No significant BIB 04/02/23 13:30 04/02/23 13:30 Labs: Lab Results 04/02/23 04/02/23 04/02/23 Range/Units 13:30 13:54 14:51 WBC 9.4 (4.8-10.8) X10*3/uL RBC 4.92 (4.60-5.80) X10*6/uL Hgb 14.4 (14.0-18.0) g/dl Hct 43.8 (42.0-52.0) % MCV 89.0 (80.0-98.0) fL MCH 29.3 (27.0-33.0) pg MCHC 32.9 (31.0-36.0) g/dl RDW 15.3 (11.0-16.0) % Plt Count 434 H (160-400) X10*3/uL MPV 9.4 (9.4-12.4) fL Immature Gran % (Auto) 0.4 (0.0-0.4) % Neut % (Auto) 71.8 (45-73) % Lymph % (Auto) 18.2 L (20-40) % [place] % (Auto) 6.8 (2-11) % Eos % (Auto) 2.2 (0-4) % Baso % (Auto) 0.6 (0-2) % Lymph # (Auto) 1.7 (1.2-4.9) X10*3/uL [place] # (Auto) 0.6 (0.1-1.2) X10*3/uL Eos # (Auto) 0.2 (0.0-0.4) X10*3/uL Baso # (Auto) 0.1 (0.0-0.2) X10*3/uL Abs Immat Gran (auto) 0.04 H (0.00-0.03) X10*3/uL Absolute Neuts (auto) 6.7 (2.0-8.3) x10*3/uL Absolute Nucleated RBC 0.000 (0.0-0.012) X10*3/uL Nucleated RBC % (auto) 0.0 (0.0-0.2) /100WBC Sodium 136 (135-145) mmol/L Potassium 4.7 (3.3-5.1) mmol/L Chloride 102 (96-108) mmol/L Carbon Dioxide 27 (22-29) mmol/L Anion Gap 12 (12-20) BUN 20 H (9-16) mg/dL Creatinine 1.08 (0.5-1.4) mg/dL Estim Creat Clear Calc 104.4 Estimated GFR > 60 Random Glucose 78 (60-115) mg/dL Calcium 9.1 (8.4-10.2) mg/dL Magnesium 2.1 (1.6-2.6) mg/dL Total Bilirubin 0.4 (0.0-1.0) mg/dL Direct Bilirubin 0.3 (0.0-0.5) mg/dL AST 53 H (5-37) U/L ALT 71 H (0-40) U/L Alkaline Phosphatase 69 (39-117) U/L Total Protein 7.2 (6.5-8.0) g/dL Albumin 4.4 (3.5-5.0) g/dL Lipase 18 (8-78) U/L Urine Color Yellow Urine Appearance Clear Urine pH 6.0 (5.0-9.0) Ur Specific [place] <= 1.005 (1.005-1.025) Urine Protein Negative (Neg-Trace) mg/dL Urine Glucose (UA) Negative (Negative) mg/dL Urine Ketones Negative (Negative) mg/dL Urine Blood Negative (Negative) Urine Nitrite Negative (Negative) Ur Leukocyte Esterase Negative (Negative) Stl C. cayetanensis PCR Not Detected (Not Detect.) Stool Rotavirus A PCR Not Detected (Not Detect.) Stl Adenov F 40/41 PCR Not Detected (Not Detect.) Stool Astrovirus (PCR) Not Detected (Not Detect.) Stool Campylobacter PCR Not Detected (Not Detect.) Stool Cryptosporidium PCR Not Detected (Not Detect.) Stl Sh Tox Pr E STEC PCR Not Detected (Not Detect.) Stool E coli O157 PCR Not applicable (Not Detect.) Stl Enterotoxigenic E PCR Not Detected (Not Detect.) Stool EPEC (PCR) Not Detected (Not Detect.) Stool EAEC (PCR) Not Detected (Not Detect.) Stl E. histolytica PCR Not Detected (Not Detect.) Stool Giardia Lamblia PCR Not Detected (Not Detect.) Stl P. shigelloides PCR Not Detected (Not Detect.) Stool Salmonella PCR Not Detected (Not Detect.) Stool Sapovirus (PCR) Not Detected (Not Detect.) Stl Shigella/EIEC PCR Not Detected (Not Detect.) St Y.enterocolitica PCR Not Detected (Not Detect.) Stool Vibrio (PCR) Not Detected (Not Detect.) Stl Vibrio cholerae PCR Not Detected (Not Detect.) Stl Norovirus GI/GII PCR Not Detected (Not Detect.) Urine Opiates Screen Not Detected (Not Detect) Urine Fentanyl Screen POSITIVE H (Not Detect) Ur Barbiturates Screen Not Detected (Not Detect) Ur Phencyclidine Scrn Not Detected (Not Detect) Ur Amphetamines Screen POSITIVE H (Not Detect) U Benzodiazepines Scrn POSITIVE H (Not Detect) Urine Cocaine Screen Not Detected (Not Detect) U Marijuana (THC) Screen Not Detected (Not Detect) C. difficile Tox B Gene POSITIVE A* (Negative) C. difficile Toxin A&B Negative (Negative) C. difficile Interpret SEE NOTE COVID-19 (ART) Negative (Negative) COVID-19 Clin Com See Note Influenza Type A (BER[place]ARDO) (Negative) Influenza Type B (BER[place]ARDO) (Negative) Influenza A & B Note 04/02/23 Range/Units 14:52 WBC (4.8-10.8) X10*3/uL RBC (4.60-5.80) X10*6/uL Hgb (14.0-18.0) g/dl Hct (42.0-52.0) % MCV (80.0-98.0) fL MCH (27.0-33.0) pg MCHC (31.0-36.0) g/dl RDW (11.0-16.0) % Plt Count (160-400) X10*3/uL MPV (9.4-12.4) fL Immature Gran % (Auto) (0.0-0.4) % Neut % (Auto) (45-73) % Lymph % (Auto) (20-40) % [place] % (Auto) (2-11) % Eos % (Auto) (0-4) % Baso % (Auto) (0-2) % Lymph # (Auto) (1.2-4.9) X10*3/uL [place] # (Auto) (0.1-1.2) X10*3/uL Eos # (Auto) (0.0-0.4) X10*3/uL Baso # (Auto) (0.0-0.2) X10*3/uL Abs Immat Gran (auto) (0.00-0.03) X10*3/uL Absolute Neuts (auto) (2.0-8.3) x10*3/uL Absolute Nucleated RBC (0.0-0.012) X10*3/uL Nucleated RBC % (auto) (0.0-0.2) /100WBC Sodium (135-145) mmol/L Potassium (3.3-5.1) mmol/L Chloride (96-108) mmol/L Carbon Dioxide (22-29) mmol/L Anion Gap (12-20) BUN (9-16) mg/dL Creatinine (0.5-1.4) mg/dL Estim Creat Clear Calc Estimated GFR Random Glucose (60-115) mg/dL Calcium (8.4-10.2) mg/dL Magnesium (1.6-2.6) mg/dL Total Bilirubin (0.0-1.0) mg/dL Direct Bilirubin (0.0-0.5) mg/dL AST (5-37) U/L ALT (0-40) U/L Alkaline Phosphatase (39-117) U/L Total Protein (6.5-8.0) g/dL Albumin (3.5-5.0) g/dL Lipase (8-78) U/L Urine Color Urine Appearance Urine pH (5.0-9.0) Ur Specific [place] (1.005-1.025) Urine Protein (Neg-Trace) mg/dL Urine Glucose (UA) (Negative) mg/dL Urine Ketones (Negative) mg/dL Urine Blood (Negative) Urine Nitrite (Negative) Ur Leukocyte Esterase (Negative) Stl C. cayetanensis PCR (Not Detect.) Stool Rotavirus A PCR (Not Detect.) Stl Adenov F 40/41 PCR (Not Detect.) Stool Astrovirus (PCR) (Not Detect.) Stool Campylobacter PCR (Not Detect.) Stool Cryptosporidium PCR (Not Detect.) Stl Sh Tox Pr E STEC PCR (Not Detect.) Stool E coli O157 PCR (Not Detect.) Stl Enterotoxigenic E PCR (Not Detect.) Stool EPEC (PCR) (Not Detect.) Stool EAEC (PCR) (Not Detect.) Stl E. histolytica PCR (Not Detect.) Stool Giardia Lamblia PCR (Not Detect.) Stl P. shigelloides PCR (Not Detect.) Stool Salmonella PCR (Not Detect.) Stool Sapovirus (PCR) (Not Detect.) Stl Shigella/EIEC PCR (Not Detect.) St Y.enterocolitica PCR (Not Detect.) Stool Vibrio (PCR) (Not Detect.) Stl Vibrio cholerae PCR (Not Detect.) Stl Norovirus GI/GII PCR (Not Detect.) Urine Opiates Screen (Not Detect) Urine Fentanyl Screen (Not Detect) Ur Barbiturates Screen (Not Detect) Ur Phencyclidine Scrn (Not Detect) Ur Amphetamines Screen (Not Detect) U Benzodiazepines Scrn (Not Detect) Urine Cocaine Screen (Not Detect) U Marijuana (THC) Screen (Not Detect) C. difficile Tox B Gene (Negative) C. difficile Toxin A&B (Negative) C. difficile Interpret COVID-19 (ART) (Negative) COVID-19 Clin Com Influenza Type A ([place]) Negative (Negative) Influenza Type B ([place]O) Negative (Negative) Influenza A & B Note See Note Tests considered The following testing was considered but not selected: Considered CT imaging of the abdomen pelvis however this was ultimately defer Discharge Plan Discharge Clinical Impression: C. difficile colitis Patient Disposition: Home, Self-Care Instructions: C. Diff (Clostridioides Difficile) Infection (ED) Additional Instructions: You have an infection called C diff colitis Take the antibiotic 4 times a day for 10 days You are given a 1 time dose in the ER Hydrate well Follow-up with your primary doctor, or return for new or worsening symptoms A diet consisting of bananas, rice, applesauce, toast Prescriptions: New vancomycin 125 mg capsule 125 mg PO QID Qty: 40 0RF No Action gabapentin 800 mg tablet 1 tab PO TID buprenorphine-naloxone 8-2 mg film 1 strip sublingual BID buprenorphine-naloxone [Suboxone] 8-2 mg film 2 film sublingual DAILY Qty: 4 0RF Rx Instructions: place 1 strip/tab under (each) side of tongue Referrals: Sea Cheung MD [Physician] - (Patient requesting colonoscopy consultation. However, currently has C diff so would likely need to wait) Stand Alone Forms: Work/School Release
[2023-04-02 13:03] VITALS: BP 138/84; PULSE 83; RESP 20; TEMP 36.1; O2SAT 97; BMI 33.8
[2023-04-02 13:33] LABS: MANUAL DIFF FLAG NO
[2023-04-02 13:44] LABS: Basophils Absolute Auto 0.1 X10*3/uL (0.0-0.2); Basophils Percent Auto 0.6 % (0-2); Eosinophils Absolute Auto 0.2 X10*3/uL (0.0-0.4); Eosinophils Percent Auto 2.2 % (0-4); Hematocrit 43.8 % (42.0-52.0); Hemoglobin 14.4 g/dl (14.0-18.0); Imm Gran Abs Auto 0.04 X10*3/uL (0.00-0.03); Imm Gran Pct Auto 0.4 % (0.0-0.4); Lymphocytes Absolute Auto 1.7 X10*3/uL (1.2-4.9); Lymphocytes Percent Auto 18.2 % (20-40); Mean Corpuscular HGB Conc 32.9 g/dl (31.0-36.0); Mean Corpuscular Hemoglobin 29.3 pg (27.0-33.0); Mean Platelet Volume 9.4 fL (9.4-12.4); Monocytes Absolute Auto 0.6 X10*3/uL (0.1-1.2); Monocytes Percent Auto 6.8 % (2-11); Neutrophils Absolute Auto 6.7 x10*3/uL (2.0-8.3); Neutrophils Percent Auto 71.8 % (45-73); Platelet Count 434 X10*3/uL (160-400); Red Blood Count 4.92 X10*6/uL (4.60-5.80); Red Cell Distribution Width 15.3 % (11.0-16.0); White Blood Count 9.4 X10*3/uL (4.8-10.8)
[2023-04-02 13:51] LABS: Alanine Aminotransferase 71 U/L (0-40); Albumin Level 4.4 g/dL (3.5-5.0); Alkaline Phosphatase 69 U/L (39-117); Anion Gap 12 (12-20); Aspartate Amino Transferase 53 U/L (5-37); Bilirubin Direct 0.3 mg/dL (0.0-0.5); Bilirubin Total 0.4 mg/dL (0.0-1.0); Blood Urea Nitrogen 20 mg/dL (9-16); Calcium 9.1 mg/dL (8.4-10.2); Carbon Dioxide 27 mmol/L (22-29); Chloride 102 mmol/L (96-108); Creatinine Clr Calc Pharmacy 104.4; Estimated Glomerular Filt Rate > 60; Glucose Random 78 mg/dL (60-115); Lipase 18 U/L (8-78); Magnesium 2.1 mg/dL (1.6-2.6); Potassium 4.7 mmol/L (3.3-5.1); Sodium 136 mmol/L (135-145); Total Protein 7.2 g/dL (6.5-8.0)
[2023-04-02 14:11] LABS: Appearance Urine Clear; Color Urine Yellow; Glucose Urine UA Negative (Negative); Leukocyte Esterase Urine Negative (Negative); Nitrite Urine Negative (Negative); Specific Gravity - Urine <= 1.005 (1.005-1.025); Urine Blood Negative (Negative); Urine Ketones Negative (Negative); Urine Protein Negative (Neg-Trace)
[2023-04-02 14:18] LABS: Amphetamine Screen Urine POSITIVE (Not Detect); Barbiturates, Urine Not Detected (Not Detect); Benzodiazepines Screen Urine POSITIVE (Not Detect); Cannabinoid Screen Urine Not Detected (Not Detect); Cocaine Screen Urine Not Detected (Not Detect); Fentanyl, urine POSITIVE (Not Detect); Opiate Screen Urine Not Detected (Not Detect); Phencyclidine Screen Urine Not Detected (Not Detect)
[2023-04-02 14:54] LABS: CDiff Gene PCR POSITIVE (Negative)
[2023-04-02 15:28] LABS: Adenovirus F 40/41 Not Detected (Not Detect.); Astrovirus Not Detected (Not Detect.); CDIFF Internal ctrl Dots and bkg OK (V); CDiff Toxin Negative (Negative); Campylobacter Not Detected (Not Detect.); Cryptosporidium Not Detected (Not Detect.); Cyclospora cayetanensis Not Detected (Not Detect.); E. coli EAEC Not Detected (Not Detect.); E. coli EPEC Not Detected (Not Detect.); E. coli ETEC Not Detected (Not Detect.); E. coli STEC Not Detected (Not Detect.); Entamoeba histolytica Not Detected (Not Detect.); Giardia lamblia Not Detected (Not Detect.); Norovirus GI/GII Not Detected (Not Detect.); Plesiomonas shigelloides Not Detected (Not Detect.); Rotavirus A Not Detected (Not Detect.); Salmonella Not Detected (Not Detect.); Sapovirus Not Detected (Not Detect.); Shigella sp./EIEC Not Detected (Not Detect.); Vibrio Not Detected (Not Detect.); Vibrio Cholerae Not Detected (Not Detect.); Yersinia enterocolitica Not Detected (Not Detect.)
[2023-04-02 15:36] LABS: COVID-19 Test Negative (Negative); IDNOW Serial# 08D9AD1C
[2023-04-02 15:37] LABS: IDNOW Serial# 152EDE1D; Influenza A Negative (Negative); Influenza B2 Negative (Negative)
[2023-04-02 17:50] VITALS: BP 150/71; PULSE 69; RESP 18; O2SAT 97
[2023-04-02] MEDS: vancomycin HCL 125 MG CAPSULE 500 MG PO (19:16)
--- NOTE | 2023-04-02 19:24 | PC.NURSE ---
medication administered per provider order. pt provided w/ d/c paperwork.
== END 2023-04-02 19:26 | disposition home or self-care (01) ==
PROVIDERS: Physician Assistant; Emergency Provider Emergency Medicine Emergency Medical Services
DX: A04.72 Enterocolitis due to Clostridium difficile, not specified as recurrent (principal); R11.2 Nausea with vomiting, unspecified; Z11.52 Encounter for screening for COVID-19; Z79.899 Other long term (current) drug therapy
CPT/HCPCS: 36415; 80048; 80076; 80307; 81003; 83690; 83735; 85025; 87324; 87493; 87502; 87507; 87635; 99283

== ENCOUNTER 2023-04-21 18:26 | Emergency (ER) | payer MEDICAID, SELFPAY ==
--- NOTE | ~2023-04-21 | CT_ITS ---
EXAMINATION: CT ABDOMEN AND PELVIS WITH CONTRAST CLINICAL INFORMATION: abd pain, diarrhea, previous cdiff diagnosis COMPARISON: None. TECHNIQUE: Multidetector volumetric imaging was performed from the superior aspect of the liver through the pubic symphysis following administration of 85 mL Omnipaque 300 intravenous contrast. Sagittal and coronal reformatted images were obtained on the technologist workstation.. This CT examination was performed using dose optimization techniques as appropriate, variously including the following: *Automated exposure control *Adjustment of mA and/or kV according to patient size (this includes techniques or standardized protocols for targeted exams where dose is matched to indication/reason for exam; i.e. extremities or head) *Use of iterative reconstruction technique DLP: 606 mGy-cm FINDINGS: LUNG BASES: The visualized lung bases are unremarkable. LIVER, GALLBLADDER, AND BILIARY TREE: The liver is normal in size, shape, and attenuation. No focal hepatic lesion or biliary ductal dilatation is present. The gallbladder is unremarkable with no evidence of radiopaque gallstones, gallbladder wall thickening, or obvious pericholecystic inflammatory changes. PANCREAS: Unremarkable. SPLEEN: Unremarkable. ADRENAL GLANDS: Unremarkable. KIDNEYS AND URETERS: The kidneys are normal in size, shape, and attenuation. No hydronephrosis, hydroureter, or perinephric stranding. No calculi. BLADDER: Unremarkable. GASTROINTESTINAL TRACT: Stool seen throughout colon to the rectum. I do not appreciate any discrete colonic wall thickening or pericolonic inflammatory change. Appendix is difficult to visualize due to the lack of significant intra-abdominal fat but there does appear to be a gas-filled tubular structure likely representing a retrocecal appendix without surrounding inflammatory change or irregularity. Visualized small bowel grossly unremarkable ABDOMINAL WALL: No significant hernia is appreciated. LYMPHOVASCULAR STRUCTURES: No lymphadenopathy. The aorta is unremarkable. PELVIC VISCERA: Unremarkable. OSSEOUS STRUCTURES: Unremarkable. CT/CT abdomen pelvis w IV con IMPRESSION: I do not appreciate any acute intra-abdominal process.
--- NOTE | 2023-04-21 18:28 | ED_ITS ---
HPI - General Adult General Chief complaint: Abdominal Pain Stated complaint: diarrhea Time Seen by Provider: 04/21/23 18:28 Source: patient Mode of arrival: ambulatory Limitations: no limitations History of Present Illness HPI narrative: Patient is a 37 year old assigned male at with a history of c.diff infection presenting to the emergency department today with abdominal pain, chills, and diarrhea. Patient states that he was seen on 04/02/2023 for diarrhea and diagnosed with C.Diff. Patient states that he has finished 14 days of vancomycin as of 04/19/2023. Patient states that he felt significantly better on 04/20/2023. Patient states that he woke up this morning and began to have the abdominal pain and diarrhea again. Patient denies any dizziness, lightheadedness, nausea, vomiting, fever, chills, blurry vision, double vision, loss of vision, chest pain, difficulty breathing, shortness of breath, back pain, night sweats, pain with urination, increased urinary frequency, increased urinary urgency, blood in his urine or stool, syncope or a near syncopal episode, recent trauma or falls, bowel incontinence, bladder incontinence, bowel retention, bladder retention, or any other complaints at this time. Onset (ago): day(s) Location: abdomen Severity: mild Relieving factors: none Exacerbating factors: none Associated symptoms: denies other symptoms Treatments prior to arrival: other (14 days of Vancomycin) Related Data Home Medications Medication Instructions Recorded Confirmed buprenorphine 8 mg-naloxone 2 mg 1 strip sublingual BID 06/23/21 06/26/21 sublingual film gabapentin 800 mg tablet 1 tab PO TID 06/23/21 06/23/21 Previous Rx's Medication Instructions Recorded buprenorphine 8 mg-naloxone 2 mg 2 film sublingual DAILY #4 ea 12/22/21 sublingual film (Suboxone) vancomycin 125 mg capsule 125 mg PO QID #40 caps 04/02/23 vancomycin 125 mg capsule 125 mg PO QID #16 caps 04/11/23 Allergies Allergy/AdvReac Type Severity Reaction Status Date / Time No Known Allergies Allergy Verified 04/02/23 14:55 [No Known Allergies*] Review of Systems 2 Constitutional: Constitutional: Reports no additional constitutional complaints, Denies chills, Denies fever(s) and Denies night sweats Eyes: Eyes: Reports no additional eye complaints, Denies blurry vision, Denies change in vision, Denies diplopia, Denies eye discharge, Denies loss of vision and Denies eye pain ENT: Denies dizziness Cardiovascular: Cardiovascular: Reports no additional cardiovascular complaints, Denies chest pain, Denies lightheadedness, Denies Loss of Consciousness and Denies dyspnea Respiratory: Respiratory: Reports no additional respiratory complaints and Denies dyspnea Gastrointestinal: Gastrointestinal: Reports no additional gastrointestinal complaints, Reports abdominal pain, Denies melena, Denies hematochezia, Denies change in bowel habits, Denies change in stool character and Reports diarrhea Genitourinary: Genitourinary: Reports no additional male genitourinary complaints, Denies hematuria, Denies oliguria, Denies difficulty urinating, Denies dysuria, Denies urinary frequency, Denies urinary hesitancy, Denies urinary incontinence and Denies urinary urgency Musculoskeletal: Musculoskeletal: Reports no additional musculoskeletal complaints, Denies numbness and Denies tingling Neurologic: Denies dizziness, Denies loss of vision, Denies numbness and Denies tingling Psychiatric: Psychiatric: Reports no additional psychiatric complaints Endocrine: Endocrine: Reports no additional endocrine complaints Hematologic/Lymphatic: Hematologic/Lymphatic: Reports no additional hematologic/lymphatic complaints Allergic/Immunologic: Allergic/Immunologic: Reports no additional allergic/immunologic complaints [facility] Past Medical History Attestation statement: The following information was validated with the patient. Source: old records reviewed and nursing notes reviewed Medical History Opioid use disorder Cocaine use disorder MDD (major depressive disorder), recurrent episode, moderate Suicidal ideation Opiate abuse, episodic Hepatitis C Social History Social History Household Members: None Housing: Other Housing Other:: sober living Do you presently have visiting nurse or other home services: No Patient Tobacco Use Status: Former Tobacco user e-Cigarette/Vaping Use: Former Use Second Hand Smoke Exposure: No Substance Use Type: Crack/Cocaine and Opiates Advance Directives: No Advance Directives Information Provided: No service: No Sexual orientation: Straight/Heterosexual Physical Exam ED Vital Signs: Vital Signs - 24 hr 04/21/23 19:11 04/21/23 22:59 04/21/23 23:47 Temperature 98.8 F 98.6 F Pulse Rate 92 68 59 Respiratory Rate 16 14 17 Blood Pressure 157/78 H 168/60 H Pulse Oximetry 97 99 97 Oxygen Delivery Method Room Air Room Air Room Air BMI result Body Mass Index 32.9 Const General: cooperative, no acute distress, alert and awake Nutritional Appearance: well nourished Orientation/consciousness: patient oriented x3 Limitations: no limitations HENMT Head: Yes normal to inspection and Yes atraumatic Ears: hearing grossly normal bilaterally and external ears normal General nose exam: Normal external nose present, no nasal discharge noted and no epistaxis Face and sinus: Yes normal facial exam, No abrasion and No laceration Mouth: Normal oral and palatal mucosa present, no drooling and no muffled voice Eyes General: appearance normal, both eyes and all related structures Periorbital: periorbital findings normal Eyelids: Yes eyelids normal Conjunctivae: conjunctivae normal Pupils: Equal, round and reactive pupils present EOM: EOMs intact bilaterally Neck Neck: Yes normal visual inspection, Yes full ROM and Yes no lymphadenopathy Chest Chest palpation & inspection: normal inspection of the chest Resp Effort & Inspection: normal respiratory effort and able to speak in complete sentences GI Inspection: Yes normal to inspection Palpation (GI): Soft to palpation, not firm, nontender and no guarding Neuro General: patient oriented x3 and moves all extremities Cranial nerves: Yes Equal, round and reactive pupils present Cognition (Neuro): normal cognition Motor exam (neuro): 5/5 motor strength present throughout Sensory Exam: Normal double simultaneous stimulation for sensation Coordination: [id number] test normal Extrem General: Yes normal to inspection, Yes full ROM and Yes capillary refill normal Psych Appearance: grossly normal Mental Status: mental status grossly normal Affect: normal affect Attitude: cooperative Thought process: Normal thought process present Thought content: Normal thought content present Insight: Good insight present (Psych) Course Reevaluation(s) Reevaluation #1: CT/CT abdomen pelvis w IV con IMPRESSION: I do not appreciate any acute intra-abdominal process. Reviewed chart, prior testing with C diff gene positive however toxin negative. Concern for whether this was true C diff infection given toxin negative. However, he has had improvement in symptoms during treatment with vancomycin. Due to this I did consult with Infectious Disease, Dr. Rudolph who recommends if your testing is positive twice for C diff gene would consider treatment with taper at this time with vancomycin q.i.d. for 10 days, t.i.d. for 7 days, b.i.d. for 7 days, daily for 1 week, followed by 3 times a week and outpatient follow- up with Infectious Disease, and likely Zinplava antibody. - repeat C diff testing today is negative. Stool panel remains pending. Advised use of Pepto-Bismol for 2-3 days and outpatient follow-up with PCP and/or GI Medications Administered Discontinued Medications Generic Name Dose Route Start Last Admin Trade Name Bruna PRN Reason Stop Dose Admin Iohexol 85 ml 04/21/23 20:32 04/21/23 20:32 Iohexol 350 Mg/Ml 100 Ml Infus..Btl IV 04/21/23 20:33 85 ml ONCE ONE Administration Medical Decision Making Medical Decision Making [facility] Narrative: Patient is a 37 year old assigned male at with a history of recent c.diff presenting to the emergency department today with abdominal pain and diarrhea. Patient's physical exam was unremarkable. Patient's blood work was unremarkable. Patient's stool samples are pending at this time. Patient's abdomen/pelvis CT is pending. I explained my physical exam findings as well as all test results to the patient. I answered all questions asked by the patient. Patient signed out to evening DIEGO pending imaging and stool results. Differential Diagnosis Differential Diagnoses: The differential diagnosis associated with the presentation includes C.Diff Abdominal pain Diarrhea Admission/Observation Consideration of admission/observation: Escalation of care including admission/observation considered Patient's disposition will be determined after stool samples and imaging result. Lab Data [facility] Lab Attestation statement: I reviewed the patient's lab results. My interpretation of these results are in the [facility] Rationale portion of this note. 04/21/23 19:48 04/21/23 19:48 Labs: Lab Results 04/21/23 04/21/23 Range/Units 19:48 23:33 WBC 8.6 (4.8-10.8) X10*3/uL RBC 5.14 (4.60-5.80) X10*6/uL Hgb 15.3 (14.0-18.0) g/dl Hct 44.8 (42.0-52.0) % MCV 87.2 (80.0-98.0) fL MCH 29.8 (27.0-33.0) pg MCHC 34.2 (31.0-36.0) g/dl RDW 14.9 (11.0-16.0) % Plt Count 432 H (160-400) X10*3/uL MPV 9.5 (9.4-12.4) fL Immature Gran % (Auto) 0.2 (0.0-0.4) % Neut % (Auto) 72.1 (45-73) % Lymph % (Auto) 20.1 (20-40) % Warren % (Auto) 6.3 (2-11) % Eos % (Auto) 0.7 (0-4) % Baso % (Auto) 0.6 (0-2) % Lymph # (Auto) 1.7 (1.2-4.9) X10*3/uL Warren # (Auto) 0.5 (0.1-1.2) X10*3/uL Eos # (Auto) 0.1 (0.0-0.4) X10*3/uL Baso # (Auto) 0.1 (0.0-0.2) X10*3/uL Abs Immat Gran (auto) 0.02 (0.00-0.03) X10*3/uL Absolute Neuts (auto) 6.2 (2.0-8.3) x10*3/uL Absolute Nucleated RBC 0.000 (0.0-0.012) X10*3/uL Nucleated RBC % (auto) 0.0 (0.0-0.2) /100WBC Sodium 136 (135-145) mmol/L Potassium 5.1 (3.3-5.1) mmol/L Chloride 103 (96-108) mmol/L Carbon Dioxide 24 (22-29) mmol/L Anion Gap 14 (12-20) BUN 22 H (9-16) mg/dL Creatinine 1.05 (0.5-1.4) mg/dL Estim Creat Clear Calc 105.9 Estimated GFR > 60 Random Glucose 87 (60-115) mg/dL Calcium 9.7 D (8.4-10.2) mg/dL Magnesium 2.1 (1.6-2.6) mg/dL Total Bilirubin 0.6 (0.0-1.0) mg/dL AST 72 H (5-37) U/L ALT 96 H (0-40) U/L Alkaline Phosphatase 69 (39-117) U/L Total Protein 7.7 (6.5-8.0) g/dL Albumin 4.7 (3.5-5.0) g/dL Urine Color Dark Yellow Urine Appearance Cloudy Urine pH 6.5 (5.0-9.0) Ur Specific Lawler >= 1.030 H (1.005-1.025) Urine Protein Trace (Neg-Trace) mg/dL Urine Glucose (UA) Negative (Negative) mg/dL Urine Ketones 15 (Negative) mg/dL Urine Blood Negative (Negative) Urine Nitrite Negative (Negative) Ur Leukocyte Esterase Small (1+) H (Negative) Urine RBC 0-2 (0-2) /HPF Urine WBC 6-10 (0-5) /HPF Ur Squamous Epith Cells 3-5 (0-2) /HPF Urine Bacteria None Seen (None Seen) Hyaline Casts 0-2 (0-2) /LPF C. difficile Tox B Gene NEGATIVE (Negative) Influenza Type A (PCR) NEGATIVE (Negative) Influenza Type B (PCR) NEGATIVE (Negative) RSV RNA Qual (PCR) NEGATIVE (Negative) SARS-CoV-2 RNA (RT-PCR) NEGATIVE (Negative) Discharge Plan Discharge Clinical Impression: Abdominal pain, Diarrhea Patient Disposition: Home, Self-Care Additional Instructions: As discussed, it is unclear whether your initial testing was a true positive for c. Diff infection or not, repeat testing today was negative. The remainder of your stool testing is pending, should there be any positive result you will receive a phone call from the hospital. Consider purchasing Pepto-Bismol [id number] for management of diarrhea. Follow-up with your primary care provider for persistent symptoms. You may return back to emergency department any new or worsening symptoms or concerns. Prescriptions: No Action gabapentin 800 mg tablet 1 tab PO TID buprenorphine-naloxone 8-2 mg film 1 strip sublingual BID buprenorphine-naloxone [Suboxone] 8-2 mg film 2 film sublingual DAILY Qty: 4 0RF Rx Instructions: place 1 strip/tab under (each) side of tongue vancomycin 125 mg capsule 125 mg PO QID Qty: 40 0RF vancomycin 125 mg capsule 125 mg PO QID Qty: 16 0RF Referrals: Isabella Rudolph MD [Physician] - Stand Alone Forms: Work/School Release Discharge Date/Time: 04/21/23 23:50
[2023-04-21 19:11] VITALS: BP 157/78; PULSE 92; RESP 16; TEMP 37.1; O2SAT 97; BMI 32.9
[2023-04-21 19:53] LABS: MANUAL DIFF FLAG NO
[2023-04-21 19:57] LABS: Basophils Absolute Auto 0.1 X10*3/uL (0.0-0.2); Basophils Percent Auto 0.6 % (0-2); Eosinophils Absolute Auto 0.1 X10*3/uL (0.0-0.4); Eosinophils Percent Auto 0.7 % (0-4); Hematocrit 44.8 % (42.0-52.0); Hemoglobin 15.3 g/dl (14.0-18.0); Imm Gran Abs Auto 0.02 X10*3/uL (0.00-0.03); Imm Gran Pct Auto 0.2 % (0.0-0.4); Lymphocytes Absolute Auto 1.7 X10*3/uL (1.2-4.9); Lymphocytes Percent Auto 20.1 % (20-40); Mean Corpuscular HGB Conc 34.2 g/dl (31.0-36.0); Mean Corpuscular Hemoglobin 29.8 pg (27.0-33.0); Mean Corpuscular Volume 87.2 fL (80.0-98.0); Mean Platelet Volume 9.5 fL (9.4-12.4); Monocytes Absolute Auto 0.5 X10*3/uL (0.1-1.2); Monocytes Percent Auto 6.3 % (2-11); Neutrophils Absolute Auto 6.2 x10*3/uL (2.0-8.3); Neutrophils Percent Auto 72.1 % (45-73); Platelet Count 432 X10*3/uL (160-400); Red Blood Count 5.14 X10*6/uL (4.60-5.80); Red Cell Distribution Width 14.9 % (11.0-16.0); White Blood Count 8.6 X10*3/uL (4.8-10.8)
[2023-04-21 20:09] LABS: Alanine Aminotransferase 96 U/L (0-40); Albumin Level 4.7 g/dL (3.5-5.0); Alkaline Phosphatase 69 U/L (39-117); Anion Gap 14 (12-20); Aspartate Amino Transferase 72 U/L (5-37); Bilirubin Total 0.6 mg/dL (0.0-1.0); Blood Urea Nitrogen 22 mg/dL (9-16); Calcium 9.7 mg/dL (8.4-10.2); Carbon Dioxide 24 mmol/L (22-29); Chloride 103 mmol/L (96-108); Creatinine Clr Calc Pharmacy 105.9; Estimated Glomerular Filt Rate > 60; Glucose Random 87 mg/dL (60-115); Magnesium 2.1 mg/dL (1.6-2.6); Potassium 5.1 mmol/L (3.3-5.1); Sodium 136 mmol/L (135-145); Total Protein 7.7 g/dL (6.5-8.0)
[2023-04-21 20:31] LABS: Influenza A PCR NEGATIVE (Negative); Influenza B PCR NEGATIVE (Negative); Resp Syncy Virus RNA Qual PCR NEGATIVE (Negative); SARS COV2 PCR INHOUSE NEGATIVE (Negative)
[2023-04-21] MEDS: iohexoL 350 MG/ML 100 ML INFUS..BTL 85 ML IV (20:32)
[2023-04-21 22:59] VITALS: PULSE 68; RESP 14; O2SAT 99
[2023-04-21 23:43] LABS: Appearance Urine Cloudy; Color Urine Dark Yellow; Glucose Urine UA Negative (Negative); Leukocyte Esterase Urine Small (1+) (Negative); Nitrite Urine Negative (Negative); PH 6.5 (5.0-9.0); Specific Gravity - Urine >= 1.030 (1.005-1.025); UMIC TRIGGER UACC YES; Urine Blood Negative (Negative); Urine Ketones 15 mg/dL (Negative); Urine Protein Trace mg/dL (Neg-Trace)
[2023-04-21 23:47] VITALS: BP 168/60; PULSE 59; RESP 17; TEMP 37; O2SAT 97
[2023-04-22 00:30] LABS: Bacteria Urine None Seen (None Seen); Hyaline Casts Urine 0-2 /LPF (0-2); UACC Culture Trigger YES
[2023-04-22 00:34] LABS: RBC Urine 0-2 /HPF (0-2)
[2023-04-22 00:36] LABS: CDiff Gene PCR NEGATIVE (Negative)
[2023-04-22 10:18] LABS: Adenovirus F 40/41 Not Detected (Not Detect.); Astrovirus Not Detected (Not Detect.); Campylobacter Not Detected (Not Detect.); Cryptosporidium Not Detected (Not Detect.); Cyclospora cayetanensis Not Detected (Not Detect.); E. coli EAEC Not Detected (Not Detect.); E. coli EPEC Not Detected (Not Detect.); E. coli ETEC Not Detected (Not Detect.); E. coli STEC Not Detected (Not Detect.); Entamoeba histolytica Not Detected (Not Detect.); Giardia lamblia Not Detected (Not Detect.); Norovirus GI/GII Not Detected (Not Detect.); Plesiomonas shigelloides Not Detected (Not Detect.); Rotavirus A Not Detected (Not Detect.); Salmonella Not Detected (Not Detect.); Sapovirus Not Detected (Not Detect.); Shigella sp./EIEC Not Detected (Not Detect.); Vibrio Not Detected (Not Detect.); Vibrio Cholerae Not Detected (Not Detect.); Yersinia enterocolitica Not Detected (Not Detect.)
== END 2023-04-21 23:50 | disposition home or self-care (01) ==
PROVIDERS: Physician Assistant Medical; Emergency Provider Emergency Medicine Emergency Medical Services
DX: R10.9 Unspecified abdominal pain (principal); R68.83 Chills (without fever); R19.7 Diarrhea, unspecified; Z20.822 Contact with and (suspected) exposure to COVID-19; Z20.828 Contact with and (suspected) exposure to other viral communicable diseases; Z79.899 Other long term (current) drug therapy
CPT/HCPCS: 0241U; 74177; 80053; 81001; 83735; 85025; 87086; 87493; 87507; 99284; Q9967

== ENCOUNTER 2023-12-11 12:00 | Emergency (ER) | payer MEDICAID, SELFPAY ==
--- NOTE | ~2023-12-11 | US_ITS ---
EXAMINATION: US ABDOMEN LIMITED CLINICAL INFORMATION: Right upper quadrant pain. COMPARISON: CT abdomen pelvis dated April 21, 2023. TECHNIQUE: Real-time imaging of the right upper quadrant abdominal viscera. FINDINGS: PANCREAS: Normal. LIVER: Normal. The liver is normal in size. The liver contour is normal. Parenchymal echogenicity is normal. No focal hepatic lesion. There is no intrahepatic biliary duct dilatation seen. GALLBLADDER: Normal. The gallbladder is physiologically distended without evidence of stones, sludge, polyps, wall thickening or pericholecystic fluid. COMMON BILE DUCT: Normal in caliber measuring 0.34 cm in diameter. RIGHT KIDNEY: Normal. No hydronephrosis. No renal calculi or focal parenchymal lesions. The kidney measures 12.8 cm in maximum dimension. FREE FLUID: None. US/US abdomen limited IMPRESSION: Normal right upper quadrant ultrasound. Electronically signed by: Nigel Prajapati DO 12/11/2023 04:03 PM EDT
[2023-12-11 12:07] VITALS: BP 157/86; PULSE 103; RESP 26; TEMP 37.4; O2SAT 98; BMI 30.5
--- NOTE | 2023-12-11 12:09 | ED.ABDPAIN ---
HPI - Abdominal Pain General Chief Complaint: Abdominal Pain Stated Complaint: abd pain Time Seen by Provider: 12/11/23 14:02 Source: patient Mode of arrival: ambulatory Limitations: no limitations History of Present Illness ED Provider: No Altman PA-C HPI narrative: Patient is a 38 year old assigned male at with a history of previous c.diff and anabolic steroid use presenting to the emergency department today with abdominal pain, abdominal cramping, and muscle cramping. Patient states that over the last day he has had significant abdominal pain with abdominal cramping and muscle cramping. Patient denies any dizziness, lightheadedness, nausea, vomiting, fever, chills, blurry vision, double vision, loss of vision, chest pain, difficulty breathing, shortness of breath, back pain, night sweats, pain with urination, increased urinary frequency, increased urinary urgency, blood in his urine or stool, syncope or a near syncopal episode, recent trauma or falls, bowel incontinence, bladder incontinence, or any other complaints at this time. MD elicited complaint: abdominal pain Quality: cramping Related Data Home Medications ?Medication ?Instructions ?Recorded ?Confirmed buprenorphine 8 mg-naloxone 2 mg 1 strip sublingual BID 06/23/21 06/26/21 sublingual film gabapentin 800 mg tablet 1 tab PO TID 06/23/21 06/23/21 Previous Rx's ?Medication ?Instructions ?Recorded buprenorphine 8 mg-naloxone 2 mg 2 film sublingual DAILY #4 ea 12/22/21 sublingual film (Suboxone) vancomycin 125 mg capsule 125 mg PO QID #40 caps 04/02/23 vancomycin 125 mg capsule 125 mg PO QID #16 caps 04/11/23 Allergies Allergy/AdvReac Type Severity Reaction Status Date / Time No Known Allergies Allergy Verified 12/11/23 12:10 [No Known Allergies*] Review of Systems Constitutional: Reports no additional constitutional complaints, Denies chills, Denies fever(s) and Denies night sweats Eyes: Reports no additional eye complaints, Denies blurry vision, Denies change in vision, Denies diplopia, Denies eye discharge, Denies loss of vision and Denies eye pain Denies dizziness Cardiovascular: Reports no additional cardiovascular complaints, Denies chest pain, Denies lightheadedness, Denies Loss of Consciousness and Denies dyspnea Respiratory: Reports no additional respiratory complaints and Denies dyspnea Gastrointestinal: Reports no additional gastrointestinal complaints, Reports abdominal pain, Denies melena, Denies hematochezia, Denies change in bowel habits and Denies change in stool character Genitourinary: Reports no additional male genitourinary complaints, Denies hematuria, Denies oliguria, Denies difficulty urinating, Denies dysuria, Denies urinary frequency, Denies urinary hesitancy, Denies urinary incontinence and Denies urinary urgency Musculoskeletal: Reports no additional musculoskeletal complaints, Denies numbness and Denies tingling Denies dizziness, Denies loss of vision, Denies numbness and Denies tingling Psychiatric: Reports no additional psychiatric complaints Endocrine: Reports no additional endocrine complaints Hematologic/Lymphatic: Reports no additional hematologic/lymphatic complaints Allergic/Immunologic: Reports no additional allergic/immunologic complaints PMFSH Past Medical History Attestation statement: The following information was validated with the patient. Source: old records reviewed and nursing notes reviewed Medical History Opioid use disorder Cocaine use disorder MDD (major depressive disorder), recurrent episode, moderate Suicidal ideation Opiate abuse, episodic Hepatitis C Social History Social History Household Members: None Housing: Other Housing Other:: sober living Do you presently have visiting nurse or other home services: No Alcohol intake: former Patient Tobacco Use Status: Former Tobacco user e-Cigarette/Vaping Use: Former Use Second Hand Smoke Exposure: No Substance Use Type: Crack/Cocaine and Opiates Substance Use Type Other:: subutex Advance Directives: No Do you have a plan to hurt others: No Plan service: No Sexual orientation: Straight/Heterosexual Physical Exam ED Vital Signs: Vital Signs - 24 hr 12/11/23 12:07 12/11/23 14:16 12/11/23 16:19 Temperature 99.4 F 98.3 F 98.9 F Pulse Rate 103 H 83 75 Respiratory Rate 26 H 16 16 Blood Pressure 157/86 H 151/72 H 160/90 H Pulse Oximetry 98 96 98 Oxygen Delivery Method Room Air Room Air Room Air BMI result Body Mass Index 30.5 Const General: cooperative, no acute distress, alert and awake Nutritional Appearance: well nourished Orientation/consciousness: patient oriented x3 Limitations: no limitations HENMT Head: Yes normal to inspection and Yes atraumatic Ears: hearing grossly normal bilaterally and external ears normal General nose exam: Normal external nose present, no nasal discharge noted and no epistaxis Face and sinus: Yes normal facial exam, No abrasion and No laceration Mouth: Normal oral and palatal mucosa present, no drooling and no muffled voice Eyes General: appearance normal, both eyes and all related structures Periorbital: periorbital findings normal Eyelids: Yes eyelids normal Conjunctivae: conjunctivae normal Pupils: Equal, round and reactive pupils present EOM: EOMs intact bilaterally Neck Neck: Yes normal visual inspection, Yes full ROM and Yes no lymphadenopathy Chest Chest palpation & inspection: normal inspection of the chest Resp Effort & Inspection: normal respiratory effort and able to speak in complete sentences GI Inspection: Yes normal to inspection Palpation (GI): Soft to palpation, not firm, nontender, no guarding and not rigid Neuro General: patient oriented x3 and moves all extremities Cranial nerves: Yes Equal, round and reactive pupils present Cognition (Neuro): normal cognition Extrem General: Yes normal to inspection, Yes full ROM and Yes capillary refill normal Psych Appearance: grossly normal Mental Status: mental status grossly normal Affect: normal affect Attitude: cooperative Thought process: Normal thought process present Thought content: Normal thought content present Insight: Good insight present (Psych) Course Course Course Narrative: This is a Rapid Medical Examination (RME) performed by Luis Angel Mcguire PA-C in triage. Full HPI, ROS, assessment and treatment plan per primary provider in the Main ED. 38 yo male presenting with intermittent central abdominal pains and nausea for the last 2 weeks. also reporting episodes of muscles locking up. no vomiting or diarrhea. pain currently 2/10. recent covid exposure last week Plan: lab workup, covid swab Medical Decision Making Medical Decision Making MDM Narrative: Patient is a 38 year old assigned male at with a history of previous c.diff and anabolic steroid use presenting to the emergency department today with abdominal pain, abdominal cramping, and muscle cramping. Patient's physical exam was unremarkable. Patient's blood work showed mildly elevated LFTs which are chronic for the patient, additionally patient had a mildly elevated total CK. Patient's urine showed no acute process. Patient's abdominal US showed no acute process. Patient positive for COVID-19. I explained my physical exam findings as well as all test results to the patient. I answered all questions asked by the patient. Patient received IV fluids while in the department. I stressed the importance of the patient taking his medication as directed (either prescribed or as the over the counter packaging recommends). I stressed the importance of the patient following up with his primary care provider. I stressed the importance of the patient returning to the emergency department immediately if his symptoms were to worsen or if he were to develop any dizziness, shortness of breath, difficulty breathing, chest pain, blurry vision, loss of vision, nausea, vomiting, abdominal pain, fever, chills, back pain, or any other complaints. Patient verbalized agreement and understanding with this treatment plan and discharge. Differential Diagnosis Differential Diagnoses: The differential diagnosis associated with the presentation includes Abdominal pain Biliary colic COVID-19 Admission/Observation Consideration of admission/observation: Escalation of care including admission/observation considered Patient would have been admitted to the hospital had his work up had any findings where hospital admission was appropriate and his clinical presentation warranted hospital admission. Lab Data [facility] Lab Attestation statement: I reviewed the patient's lab results. My interpretation of these results are in the [facility] Rationale portion of this note. 12/11/23 12:40 12/11/23 12:40 Labs: Lab Results 12/11/23 12/11/23 12/11/23 Range/Units 12:40 12:41 12:42 WBC 10.7 (4.8-10.8) X10*3/uL RBC 5.22 (4.60-5.80) X10*6/uL Hgb 15.8 (14.0-18.0) g/dl Hct 45.1 (42.0-52.0) % MCV 86.4 (80.0-98.0) fL MCH 30.3 (27.0-33.0) pg MCHC 35.0 (31.0-36.0) g/dl RDW 16.4 H (11.0-16.0) % Plt Count 419 H (160-400) X10*3/uL MPV 9.9 (9.4-12.4) fL Immature Gran % (Auto) 0.5 H (0.0-0.4) % Neut % (Auto) 81.6 H (45-73) % Lymph % (Auto) 12.2 L (20-40) % [place] % (Auto) 5.2 (2-11) % Eos % (Auto) 0.2 (0-4) % Baso % (Auto) 0.3 (0-2) % Lymph # (Auto) 1.3 (1.2-4.9) X10*3/uL [place] # (Auto) 0.6 (0.1-1.2) X10*3/uL Eos # (Auto) 0.0 (0.0-0.4) X10*3/uL Baso # (Auto) 0.0 (0.0-0.2) X10*3/uL Abs Immat Gran (auto) 0.05 H (0.00-0.03) X10*3/uL Absolute Neuts (auto) 8.7 H (2.0-8.3) x10*3/uL Absolute Nucleated RBC 0.000 (0.0-0.012) X10*3/uL Nucleated RBC % (auto) 0.0 (0.0-0.2) /100WBC Sodium 136 (135-145) mmol/L Potassium 4.8 (3.3-5.1) mmol/L Chloride 101 (96-108) mmol/L Carbon Dioxide 26 (22-29) mmol/L Anion Gap 14 (12-20) BUN 12 (9-16) mg/dL Creatinine 1.21 (0.5-1.4) mg/dL Estim Creat Clear Calc 87.8 Estimated GFR > 60 Random Glucose 104 (60-115) mg/dL Calcium 10.0 (8.4-10.2) mg/dL Magnesium 1.9 (1.6-2.6) mg/dL Total Bilirubin 1.4 H (0.0-1.0) mg/dL Direct Bilirubin 0.7 H (0.0-0.5) mg/dL AST 74 H (5-37) U/L ALT 174 H (0-40) U/L Alkaline Phosphatase 62 (39-117) U/L Total Creatine Kinase 537 H (38-174) U/L Total Protein 7.5 (6.5-8.0) g/dL Albumin 4.5 (3.5-5.0) g/dL Lipase 49 (8-78) U/L Urine Color Yellow Urine Appearance Clear Urine pH 6.5 (5.0-9.0) Ur Specific [place] <= 1.005 (1.005-1.025) Urine Protein Negative (Neg-Trace) mg/dL Urine Glucose (UA) Negative (Negative) mg/dL Urine Ketones Negative (Negative) mg/dL Urine Blood Negative (Negative) Urine Nitrite Negative (Negative) Ur Leukocyte Esterase Negative (Negative) Urine Opiates Screen Not Detected (Not Detect) Ur Buprenorphine Scrn Positive H (Not Detect) ng/mL Ur Oxycodone Screen Not Detected (Not Detect) ng/mL Urine Methadone Screen Not Detected (Not Detect) ng/mL Urine Fentanyl Screen Not Detected (Not Detect) Ur Barbiturates Screen Not Detected (Not Detect) Ur Phencyclidine Scrn Not Detected (Not Detect) Ur Amphetamines Screen Not Detected (Not Detect) U Benzodiazepines Scrn Not Detected (Not Detect) Urine Cocaine Screen Not Detected (Not Detect) U Marijuana (THC) Screen POSITIVE H (Not Detect) COVID-19 (ART) Cancelled COVID-19 Clin Com Cancelled Influenza Type A (PCR) NEGATIVE (Negative) Influenza Type B (PCR) NEGATIVE (Negative) RSV RNA Qual (PCR) NEGATIVE (Negative) SARS-CoV-2 RNA (RT-PCR) POSITIVE A (Negative) Independent Interpretation I performed an independent interpretation of an: Ultrasound Interpretation: My interpretation is in agreement with the radiologist's impression of this imaging study. EXAMINATION: US ABDOMEN LIMITED CLINICAL INFORMATION: Right upper quadrant pain. COMPARISON: CT abdomen pelvis dated April 21, 2023. TECHNIQUE: Real-time imaging of the right upper quadrant abdominal viscera. FINDINGS: PANCREAS: Normal. LIVER: Normal. The liver is normal in size. The liver contour is normal. Parenchymal echogenicity is normal. No focal hepatic lesion. There is no intrahepatic biliary duct dilatation seen. GALLBLADDER: Normal. The gallbladder is physiologically distended without evidence of stones, sludge, polyps, wall thickening or pericholecystic fluid. COMMON BILE DUCT: Normal in caliber measuring 0.34 cm in diameter. RIGHT KIDNEY: Normal. No hydronephrosis. No renal calculi or focal parenchymal lesions. The kidney measures 12.8 cm in maximum dimension. FREE FLUID: None. US/US abdomen limited IMPRESSION: Normal right upper quadrant ultrasound. Electronically signed by: Nigel Prajapati DO 12/11/2023 04:03 PM EDT RP Dictated By: Nigel Prajapati Jr, DO Signed By: Electronically signed by Nigel Prajapati Jr, DO 12/11/23 1603 Radiology Impression Discussion of test interpretation with radiology: I have reviewed the radiologist's reading. Medications Administered Discontinued Medications Generic Name Dose Route Start Last Admin Trade Name Bruna PRN Reason Stop Dose Admin Sodium Chloride 1,000 mls @ 999 mls/hr 12/11/23 14:15 12/11/23 16:04 Ns IV 12/11/23 15:15 Infused .Q1H1M TORI Infusion Sodium Chloride 1,000 mls @ 999 mls/hr 12/11/23 14:15 12/11/23 16:05 Ns IV 12/11/23 15:15 Infused .Q1H1M TORI Infusion Discharge Plan Discharge Clinical Impression: Abdominal pain, COVID-19 Patient Disposition: Home, Self-Care Instructions: Abdominal Pain (ED), COVID-19 (Coronavirus Disease 2019) (ED) Additional Instructions: Follow up with your primary care provider. Return to the emergency department immediately if your symptoms worsen or if you develop any dizziness, shortness of breath, difficulty breathing, chest pain, blurry vision, loss of vision, nausea, vomiting, abdominal pain, fever, chills, back pain, or any other complaints. Prescriptions: No Action gabapentin 800 mg tablet 1 tab PO TID buprenorphine-naloxone 8-2 mg film 1 strip sublingual BID buprenorphine-naloxone [Suboxone] 8-2 mg film 2 film sublingual DAILY Qty: 4 0RF Rx Instructions: place 1 strip/tab under (each) side of tongue vancomycin 125 mg capsule 125 mg PO QID Qty: 40 0RF vancomycin 125 mg capsule 125 mg PO QID Qty: 16 0RF Referrals: [facility] [Primary Care Provider] - Stand Alone Forms: Work/School Release Interventions: ED Discharge Assessment Last Done: 12/11/23 16:19 Discharge Date/Time: 12/11/23 16:25 Print Language: Slovak
[2023-12-11 12:54] LABS: MANUAL DIFF FLAG NO
[2023-12-11 12:55] LABS: Basophils Percent Auto 0.3 % (0-2); Eosinophils Percent Auto 0.2 % (0-4); Hematocrit 45.1 % (42.0-52.0); Hemoglobin 15.8 g/dl (14.0-18.0); Imm Gran Abs Auto 0.05 X10*3/uL (0.00-0.03); Imm Gran Pct Auto 0.5 % (0.0-0.4); Lymphocytes Absolute Auto 1.3 X10*3/uL (1.2-4.9); Lymphocytes Percent Auto 12.2 % (20-40); Mean Corpuscular Hemoglobin 30.3 pg (27.0-33.0); Mean Corpuscular Volume 86.4 fL (80.0-98.0); Mean Platelet Volume 9.9 fL (9.4-12.4); Monocytes Absolute Auto 0.6 X10*3/uL (0.1-1.2); Monocytes Percent Auto 5.2 % (2-11); Neutrophils Absolute Auto 8.7 x10*3/uL (2.0-8.3); Neutrophils Percent Auto 81.6 % (45-73); Platelet Count 419 X10*3/uL (160-400); Red Blood Count 5.22 X10*6/uL (4.60-5.80); Red Cell Distribution Width 16.4 % (11.0-16.0); White Blood Count 10.7 X10*3/uL (4.8-10.8)
[2023-12-11 13:03] LABS: Appearance Urine Clear; Color Urine Yellow; Glucose Urine UA Negative (Negative); Leukocyte Esterase Urine Negative (Negative); Nitrite Urine Negative (Negative); PH 6.5 (5.0-9.0); Specific Gravity - Urine <= 1.005 (1.005-1.025); Urine Blood Negative (Negative); Urine Ketones Negative (Negative); Urine Protein Negative (Neg-Trace)
[2023-12-11 13:10] LABS: Alanine Aminotransferase 174 U/L (0-40); Albumin Level 4.5 g/dL (3.5-5.0); Alkaline Phosphatase 62 U/L (39-117); Anion Gap 14 (12-20); Aspartate Amino Transferase 74 U/L (5-37); Bilirubin Direct 0.7 mg/dL (0.0-0.5); Bilirubin Total 1.4 mg/dL (0.0-1.0); Blood Urea Nitrogen 12 mg/dL (9-16); Carbon Dioxide 26 mmol/L (22-29); Chloride 101 mmol/L (96-108); Creatinine Clr Calc Pharmacy 87.8; Estimated Glomerular Filt Rate > 60; Glucose Random 104 mg/dL (60-115); Lipase 49 U/L (8-78); Magnesium 1.9 mg/dL (1.6-2.6); Potassium 4.8 mmol/L (3.3-5.1); Sodium 136 mmol/L (135-145); Total Protein 7.5 g/dL (6.5-8.0)
[2023-12-11 13:40] LABS: Influenza A PCR NEGATIVE (Negative); Influenza B PCR NEGATIVE (Negative); Resp Syncy Virus RNA Qual PCR NEGATIVE (Negative); SARS COV2 PCR INHOUSE POSITIVE (Negative)
[2023-12-11 14:16] VITALS: BP 151/72; PULSE 83; RESP 16; TEMP 36.8; O2SAT 96
[2023-12-11] MEDS: 0.9 % Sodium Chloride 1,000 ML 999 ML IV ×2 (14:16→14:17)
[2023-12-11 14:34] LABS: Amphetamine Screen Urine Not Detected (Not Detect); Barbiturates, Urine Not Detected (Not Detect); Benzodiazepines Screen Urine Not Detected (Not Detect); Buprenorphine Scr Positive (Not Detect); Cannabinoid Screen Urine POSITIVE (Not Detect); Cocaine Screen Urine Not Detected (Not Detect); Fentanyl, urine Not Detected (Not Detect); Methadone Screen, Urine Not Detected (Not Detect); Opiate Screen Urine Not Detected (Not Detect); Oxycodone Screen Urine Not Detected (Not Detect); Phencyclidine Screen Urine Not Detected (Not Detect)
--- NOTE | 2023-12-11 15:45 | PC.NURSE ---
patient resting comfortably on stretcher, endorsing feeling much better, IV fluids almost complete at this time, awaiting US results at this time
[2023-12-11 16:19] VITALS: BP 160/90; PULSE 75; RESP 16; TEMP 37.2; O2SAT 98
== END 2023-12-11 16:25 | disposition home or self-care (01) ==
PROVIDERS: Physician Assistant; Emergency Provider Student in an Organized Health Care Education/Training Program
DX: U07.1 COVID-19 (principal); R10.11 Right upper quadrant pain; R25.2 Cramp and spasm; R11.0 Nausea; Z79.899 Other long term (current) drug therapy; Z87.891 Personal history of nicotine dependence; Z51.81 Encounter for therapeutic drug level monitoring
CPT/HCPCS: 0241U; 76705; 80048; 80076; 80307; 81003; 82550; 83690; 83735; 85025; 96360; 96361; 99284

== ENCOUNTER 2023-12-26 07:51 | Emergency (ER) | payer MEDICAID, SELFPAY ==
--- NOTE | ~2023-12-26 | CT_ITS ---
EXAMINATION: CT ABDOMEN AND PELVIS WITH CONTRAST CLINICAL INFORMATION: Abdominal pain and nausea. COMPARISON: Abdominal ultrasound dated 12/11/[address] abdomen/pelvis dated 04/21/2023. TECHNIQUE: Multidetector volumetric images were obtained from the superior aspect of the liver through the pubic symphysis following administration 85 mL of Omnipaque 350 intravenous contrast. Sagittal and coronal reformatted images were obtained on the technologist's workstation. Oral contrast: No This CT examination was performed using dose optimization techniques as appropriate, variously including the following: *Automated exposure control *Adjustment of mA and/or kV according to patient size (this includes techniques or standardized protocols for targeted exams where dose is matched to indication/reason for exam; i.e. extremities or head) *Use of iterative reconstruction technique DLP: 674 mGy-cm. FINDINGS: LUNG BASES: The visualized lung bases are unremarkable. LIVER, GALLBLADDER, AND BILIARY TREE: The liver is normal in size, shape, and attenuation. No focal hepatic lesion or biliary ductal dilatation is present. The gallbladder is unremarkable with no evidence of radiopaque gallstones, gallbladder wall thickening, or obvious pericholecystic inflammatory changes. PANCREAS: Unremarkable. SPLEEN: Unremarkable. ADRENAL GLANDS: Unremarkable. KIDNEYS AND URETERS: The kidneys are normal in size, shape, and attenuation. No hydronephrosis, hydroureter, or calculi seen. No perinephric stranding. BLADDER: Unremarkable. GASTROINTESTINAL TRACT: No small or large bowel obstruction. Mild circumferential wall thickening of fluid-filled small bowel loops in the left hemiabdomen and left upper quadrant. The distal small bowel loops are fluid-filled without additional wall thickening. Xirb-[id number]-mrfcpdux stool burden within the colon. Unremarkable appendix. PERITONEAL CAVITY: No intra-abdominal free air or free fluid. No intra-abdominal mass or organized fluid collection/abscess formation. ABDOMINAL WALL: No significant hernia is appreciated. LYMPH NODES: No significant lymphadenopathy. VASCULAR: Unremarkable. PELVIC VISCERA: The prostate and seminal vesicles are unremarkable. OSSEOUS STRUCTURES: Unremarkable. CT/CT abdomen pelvis w IV con IMPRESSION: 1. Mild circumferential wall thickening of fluid-filled small bowel loops in the left hemiabdomen and left upper quadrant. The distal small bowel loops are fluid-filled without additional wall thickening. Findings are consistent with enteritis. No small or large bowel obstruction. [id number] stool burden within the colon. Unremarkable appendix. 2. No intra-abdominal mass, lymphadenopathy, or ascites. Fleischner guidelines were followed. Electronically signed by: Ayan Suazo MD 12/26/2023 10:57 AM EDT
[2023-12-26 08:05] VITALS: BP 148/85; PULSE 76; RESP 18; TEMP 36.8; O2SAT 95; BMI 32.9
[2023-12-26 08:21] LABS: MANUAL DIFF FLAG NO
[2023-12-26 08:23] LABS: Basophils Percent Auto 0.4 % (0-2); Eosinophils Absolute Auto 0.2 X10*3/uL (0.0-0.4); Eosinophils Percent Auto 2.7 % (0-4); Hemoglobin 15.5 g/dl (14.0-18.0); Imm Gran Abs Auto 0.03 X10*3/uL (0.00-0.03); Imm Gran Pct Auto 0.4 % (0.0-0.4); Lymphocytes Absolute Auto 1.6 X10*3/uL (1.2-4.9); Lymphocytes Percent Auto 23.8 % (20-40); Mean Corpuscular HGB Conc 33.7 g/dl (31.0-36.0); Mean Corpuscular Hemoglobin 30.2 pg (27.0-33.0); Mean Corpuscular Volume 89.5 fL (80.0-98.0); Mean Platelet Volume 9.2 fL (9.4-12.4); Monocytes Absolute Auto 0.7 X10*3/uL (0.1-1.2); Monocytes Percent Auto 9.6 % (2-11); Neutrophils Absolute Auto 4.3 x10*3/uL (2.0-8.3); Neutrophils Percent Auto 63.1 % (45-73); Platelet Count 403 X10*3/uL (160-400); Red Blood Count 5.14 X10*6/uL (4.60-5.80); Red Cell Distribution Width 18.4 % (11.0-16.0); White Blood Count 6.8 X10*3/uL (4.8-10.8)
--- NOTE | 2023-12-26 08:32 | ED_ITS ---
HPI - General Adult General Chief complaint: Abdominal Pain Stated complaint: nausea for 1 month Time Seen by Provider: 12/26/23 08:31 Source: patient Mode of arrival: ambulatory Limitations: no limitations History of Present Illness ED Provider: No Altman PA-C HPI narrative: Patient is a 38 year old assigned male at with a history of previous c.diff and anabolic steroid use presenting to the emergency department today with lower abdominal cramping, nausea, vomiting, night sweats, and fever. Patient states that yesterday he began having night sweats, fever, nausea, and vomiting. Patient states that the abdominal pain has been intermittent over the last month but yesterday it got much worse. Patient denies any dizziness, lightheadedness, chills, blurry vision, double vision, loss of vision, chest pain, difficulty breathing, shortness of breath, back pain, night sweats, pain with urination, increased urinary frequency, increased urinary urgency, blood in his urine or stool, syncope or a near syncopal episode, recent trauma or falls, bowel incontinence, bladder incontinence, or any other complaints at this time. Relieving factors: none Exacerbating factors: none Associated symptoms: fever/chills and nausea/vomiting Treatments prior to arrival: none Related Data Home Medications ?Medication ?Instructions ?Recorded ?Confirmed buprenorphine 8 mg-naloxone 2 mg 1 strip sublingual BID 06/23/21 06/26/21 sublingual film gabapentin 800 mg tablet 1 tab PO TID 06/23/21 06/23/21 Previous Rx's ?Medication ?Instructions ?Recorded buprenorphine 8 mg-naloxone 2 mg 2 film sublingual DAILY #4 ea 12/22/21 sublingual film (Suboxone) vancomycin 125 mg capsule 125 mg PO QID #40 caps 04/02/23 vancomycin 125 mg capsule 125 mg PO QID #16 caps 04/11/23 ondansetron 4 mg disintegrating 4 mg PO Q8H 3 days #9 tabs 12/26/23 tablet Allergies Allergy/AdvReac Type Severity Reaction Status Date / Time No Known Allergies Allergy Verified 12/26/23 08:09 [No Known Allergies*] Review of Systems 2 Constitutional: Constitutional: Reports no additional constitutional complaints, Denies chills, Reports fever(s) and Reports night sweats Eyes: Eyes: Reports no additional eye complaints, Denies blurry vision, Denies change in vision, Denies diplopia, Denies eye discharge, Denies loss of vision and Denies eye pain ENT: Denies dizziness Cardiovascular: Cardiovascular: Reports no additional cardiovascular complaints, Denies chest pain, Denies lightheadedness, Denies Loss of Consciousness and Denies dyspnea Respiratory: Respiratory: Reports no additional respiratory complaints and Denies dyspnea Gastrointestinal: Gastrointestinal: Reports no additional gastrointestinal complaints, Reports abdominal pain, Denies melena, Denies hematochezia, Denies change in bowel habits, Denies change in stool character, Reports nausea and Reports vomiting Genitourinary: Genitourinary: Reports no additional male genitourinary complaints, Denies hematuria, Denies oliguria, Denies difficulty urinating, Denies dysuria, Denies urinary frequency, Denies urinary hesitancy, Denies urinary incontinence and Denies urinary urgency Musculoskeletal: Musculoskeletal: Reports no additional musculoskeletal complaints, Denies numbness and Denies tingling Neurologic: Denies dizziness, Denies loss of vision, Denies numbness and Denies tingling Psychiatric: Psychiatric: Reports no additional psychiatric complaints Endocrine: Endocrine: Reports no additional endocrine complaints Hematologic/Lymphatic: Hematologic/Lymphatic: Reports no additional hematologic/lymphatic complaints Allergic/Immunologic: Allergic/Immunologic: Reports no additional allergic/immunologic complaints PMF Past Medical History Attestation statement: The following information was validated with the patient. Source: old records reviewed and nursing notes reviewed Medical History Opioid use disorder Cocaine use disorder MDD (major depressive disorder), recurrent episode, moderate Suicidal ideation Opiate abuse, episodic Hepatitis C Social History Social History Household Members: None Housing: Other Housing Other:: sober living Do you presently have visiting nurse or other home services: No Alcohol intake: former Patient Tobacco Use Status: Former Tobacco user Smoked in Last 30 Days: No e-Cigarette/Vaping Use: Former Use Second Hand Smoke Exposure: No Use of substances other than those prescribed or required for medical reasons: Yes Substance Use Type: Crack/Cocaine Advance Directives: No Advance Directives Information Provided: Yes Do you have a plan to hurt others: No Plan service: No Sexual orientation: Straight/Heterosexual Physical Exam ED Vital Signs: Vital Signs - 24 hr 12/26/23 08:05 12/26/23 10:54 12/26/23 12:01 Temperature 98.3 F 97.9 F 98.2 F Pulse Rate 76 69 82 Respiratory Rate 18 18 18 Blood Pressure 148/85 H 150/92 H 140/88 H Pulse Oximetry 95 97 97 Oxygen Delivery Method Room Air Room Air Room Air BMI result Body Mass Index 32.9 Const General: cooperative, no acute distress, alert and awake Nutritional Appearance: well nourished Orientation/consciousness: patient oriented x3 Limitations: no limitations HENMT Head: Yes normal to inspection and Yes atraumatic Ears: hearing grossly normal bilaterally and external ears normal General nose exam: Normal external nose present, no nasal discharge noted and no epistaxis Face and sinus: Yes normal facial exam, No abrasion and No laceration Mouth: Normal oral and palatal mucosa present, no drooling and no muffled voice Eyes General: appearance normal, both eyes and all related structures Periorbital: periorbital findings normal Eyelids: Yes eyelids normal Conjunctivae: conjunctivae normal Pupils: Equal, round and reactive pupils present EOM: EOMs intact bilaterally Neck Neck: Yes normal visual inspection, Yes full ROM and Yes no lymphadenopathy Chest Chest palpation & inspection: normal inspection of the chest Resp Effort & Inspection: normal respiratory effort and able to speak in complete sentences GI Inspection: Yes normal to inspection Palpation (GI): Soft to palpation, not firm, nontender and no guarding Neuro General: patient oriented x3 and moves all extremities Cranial nerves: Yes Equal, round and reactive pupils present Cognition (Neuro): normal cognition Extrem General: Yes normal to inspection, Yes full ROM and Yes capillary refill normal Psych Appearance: grossly normal Mental Status: mental status grossly normal Affect: normal affect Attitude: cooperative Thought process: Normal thought process present Thought content: Normal thought content present Insight: Good insight present (Psych) Medications Administered Discontinued Medications Generic Name Dose Route Start Last Admin Trade Name Freq PRN Reason Stop Dose Admin Droperidol 1.25 mg 12/26/23 08:45 12/26/23 08:59 Droperidol 5 Mg/2 Ml Vial IVPUSH 12/26/23 08:46 1.25 mg ONCE ONE Administration Sodium Chloride 1,000 mls @ 999 mls/hr 12/26/23 09:30 12/26/23 10:46 Ns IV 12/26/23 10:30 Infused .Q1H1M TORI Infusion Iohexol 85 ml 12/26/23 09:12 12/26/23 09:13 Iohexol 350 Mg/Ml 75 Ml Infus..Btl IV 12/26/23 09:13 85 ml ONCE ONE Administration Ondansetron HCl 4 mg 12/26/23 08:33 12/26/23 08:42 Ondansetron Hcl 4 Mg/2 Ml Vial IVPUSH 12/26/23 08:34 4 mg ONCE ONE Administration Pantoprazole Sodium 40 mg 12/26/23 08:33 12/26/23 08:42 Pantoprazole Sodium 40 Mg/10 Ml Vial IVPUSH 12/26/23 08:34 40 mg ONCE ONE Administration Sucralfate 1 gm 12/26/23 08:33 12/26/23 08:43 Sucralfate Oral Suspension 1 Gm/10 Ml Oral.Susp PO 12/26/23 08:34 1 gm ONCE ONE Administration Medical Decision Making Medical Decision Making [facility] Narrative: Patient is a 38 year old assigned male at with a history of previous c.diff and anabolic steroid use presenting to the emergency department today with lower abdominal cramping, nausea, vomiting, night sweats, and fever. Patient's physical exam was unremarkable. Patient's blood work showed chronically elevated LFTs and a mildly elevated lipase of 201. The rest of the patient's labs were unremarkable. Patient's urine showed no acute process. Patient's EKG was unremarkable. Patient's abdomen/pelvis CT showed enteritis but was otherwise unremarkable. I explained my physical exam findings as well as all test results to the patient. I answered all questions asked by the patient. Patient received IV fluids and droperidol which, upon re-evaluation, he stated it helped his symptoms significantly. I stressed the importance of the patient taking his medication as directed (either prescribed or as the over the counter packaging recommends). I stressed the importance of the patient following up with his primary care provider and a GI specialist. I stressed the importance of the patient returning to the emergency department immediately if his symptoms were to worsen or if he were to develop any dizziness, shortness of breath, difficulty breathing, chest pain, blurry vision, loss of vision, nausea, vomiting, abdominal pain, fever, chills, back pain, or any other complaints. Patient verbalized agreement and understanding with this treatment plan and discharge. Differential Diagnosis Differential Diagnoses: The differential diagnosis associated with the presentation includes Pancreatitis Abdominal pain Enteritis Colitis Nausea Vomiting Admission/Observation Consideration of admission/observation: Escalation of care including admission/observation considered Patient would have been admitted to the hospital had his work up had any findings where hospital admission was appropriate and his clinical presentation warranted hospital admission. Lab Data [facility] Lab Attestation statement: I reviewed the patient's lab results. My interpretation of these results are in the [facility] Rationale portion of this note. 12/26/23 08:18 12/26/23 08:18 Labs: Lab Results 12/26/23 12/26/23 Range/Units 08:18 09:43 WBC 6.8 (4.8-10.8) X10*3/uL RBC 5.14 (4.60-5.80) X10*6/uL Hgb 15.5 (14.0-18.0) g/dl Hct 46.0 (42.0-52.0) % MCV 89.5 (80.0-98.0) fL MCH 30.2 (27.0-33.0) pg MCHC 33.7 (31.0-36.0) g/dl RDW 18.4 H (11.0-16.0) % Plt Count 403 H (160-400) X10*3/uL MPV 9.2 L (9.4-12.4) fL Immature Gran % (Auto) 0.4 (0.0-0.4) % Neut % (Auto) 63.1 (45-73) % Lymph % (Auto) 23.8 (20-40) % Gordon % (Auto) 9.6 (2-11) % Eos % (Auto) 2.7 (0-4) % Baso % (Auto) 0.4 (0-2) % Lymph # (Auto) 1.6 (1.2-4.9) X10*3/uL Gordon # (Auto) 0.7 (0.1-1.2) X10*3/uL Eos # (Auto) 0.2 (0.0-0.4) X10*3/uL Baso # (Auto) 0.0 (0.0-0.2) X10*3/uL Abs Immat Gran (auto) 0.03 (0.00-0.03) X10*3/uL Absolute Neuts (auto) 4.3 (2.0-8.3) x10*3/uL Absolute Nucleated RBC 0.000 (0.0-0.012) X10*3/uL Nucleated RBC % (auto) 0.0 (0.0-0.2) /100WBC Sodium 136 (135-145) mmol/L Potassium 5.0 (3.3-5.1) mmol/L Chloride 106 (96-108) mmol/L Carbon Dioxide 25 (22-29) mmol/L Anion Gap 10 L (12-20) BUN 14 (9-16) mg/dL Creatinine 0.95 (0.5-1.4) mg/dL Estim Creat Clear Calc 115.9 Estimated GFR > 60 Random Glucose 109 (60-115) mg/dL Calcium 8.6 D (8.4-10.2) mg/dL Magnesium 1.9 (1.6-2.6) mg/dL Total Bilirubin 1.0 (0.0-1.0) mg/dL AST 45 H (5-37) U/L ALT 196 H (0-40) U/L Alkaline Phosphatase 65 (39-117) U/L Total Protein 6.4 L (6.5-8.0) g/dL Albumin 3.9 (3.5-5.0) g/dL Lipase 201 H (8-78) U/L Urine Color Yellow Urine Appearance Clear Urine pH 6.0 (5.0-9.0) Ur Specific [place] >= 1.030 H (1.005-1.025) Urine Protein Negative (Neg-Trace) mg/dL Urine Glucose (UA) Negative (Negative) mg/dL Urine Ketones Negative (Negative) mg/dL Urine Blood Negative (Negative) Urine Nitrite Negative (Negative) Ur Leukocyte Esterase Negative (Negative) Urine Opiates Screen Not Detected (Not Detect) Ur Buprenorphine Scrn Positive H (Not Detect) ng/mL Ur Oxycodone Screen Not Detected (Not Detect) ng/mL Urine Methadone Screen Not Detected (Not Detect) ng/mL Urine Fentanyl Screen Not Detected (Not Detect) Ur Barbiturates Screen Not Detected (Not Detect) Ur Phencyclidine Scrn Not Detected (Not Detect) Ur Amphetamines Screen Not Detected (Not Detect) U Benzodiazepines Scrn Not Detected (Not Detect) Urine Cocaine Screen Not Detected (Not Detect) U Marijuana (THC) Screen POSITIVE H (Not Detect) Ethyl Alcohol < 10 mg/dL Independent Interpretation I performed an independent interpretation of an: EKG and CT Scan Interpretation: My interpretation is in agreement with the radiologist's impression of this imaging study. L EXAMINATION: CT ABDOMEN AND PELVIS WITH CONTRAST CLINICAL INFORMATION: Abdominal pain and nausea. COMPARISON: Abdominal ultrasound dated 12/11/[address] abdomen/pelvis dated 04/21/2023. TECHNIQUE: Multidetector volumetric images were obtained from the superior aspect of the liver through the pubic symphysis following administration 85 mL of Omnipaque 350 intravenous contrast. Sagittal and coronal reformatted images were obtained on the technologist's workstation. Oral contrast: No This CT examination was performed using dose optimization techniques as appropriate, variously including the following: *Automated exposure control *Adjustment of mA and/or kV according to patient size (this includes techniques or standardized protocols for targeted exams where dose is matched to indication/reason for exam; i.e. extremities or head) *Use of iterative reconstruction technique DLP: 674 mGy-cm. FINDINGS: LUNG BASES: The visualized lung bases are unremarkable. LIVER, GALLBLADDER, AND BILIARY TREE: The liver is normal in size, shape, and attenuation. No focal hepatic lesion or biliary ductal dilatation is present. The gallbladder is unremarkable with no evidence of radiopaque gallstones, gallbladder wall thickening, or obvious pericholecystic inflammatory changes. PANCREAS: Unremarkable. SPLEEN: Unremarkable. ADRENAL GLANDS: Unremarkable. KIDNEYS AND URETERS: The kidneys are normal in size, shape, and attenuation. No hydronephrosis, hydroureter, or calculi seen. No perinephric stranding. BLADDER: Unremarkable. GASTROINTESTINAL TRACT: No small or large bowel obstruction. Mild circumferential wall thickening of fluid-filled small bowel loops in the left hemiabdomen and left upper quadrant. The distal small bowel loops are fluid- filled without additional wall thickening. [id number] stool burden within the colon. Unremarkable appendix. PERITONEAL CAVITY: No intra-abdominal free air or free fluid. No intra-abdominal mass or organized fluid collection/abscess formation. ABDOMINAL WALL: No significant hernia is appreciated. LYMPH NODES: No significant lymphadenopathy. VASCULAR: Unremarkable. PELVIC VISCERA: The prostate and seminal vesicles are unremarkable. OSSEOUS STRUCTURES: Unremarkable. CT/CT abdomen pelvis w IV con IMPRESSION: 1. Mild circumferential wall thickening of fluid-filled small bowel loops in the left hemiabdomen and left upper quadrant. The distal small bowel loops are fluid-filled without additional wall thickening. Findings are consistent with enteritis. No small or large bowel obstruction. [id number] stool burden within the colon. Unremarkable appendix. 2. No intra-abdominal mass, lymphadenopathy, or ascites. Fleischner guidelines were followed. Electronically signed by: Ayan Suazo MD 12/26/2023 10:57 AM EDT Dictated By: Ayan Suazo MD Signed By: Electronically signed by Ayan Suazo MD 12/26/23 1057 Vent. Rate: 069 BPM Atrial Rate: 069 BPM P-R Int: 186 ms QRS Dur: 084 ms QT Int: 336 ms P-R-T Axes: 042 095 011 degrees QTc Int: 360 ms Normal sinus rhythm Rightward axis Borderline ECG When compared with ECG of 23-JUN-2021 15:56, No significant change was found DD/ [id number] Radiology Impression Discussion of test interpretation with radiology: I have reviewed the radiologist's reading. Discharge Plan Discharge Clinical Impression: Enteritis, Pancreatitis Patient Disposition: Home, Self-Care Instructions: Pancreatitis (ED), Enteritis (ED) Additional Instructions: Stay hydrated. Follow up with your primary care provider. Return to the emergency department immediately if your symptoms worsen or if you develop any dizziness, shortness of breath, difficulty breathing, chest pain, blurry vision, loss of vision, nausea, vomiting, abdominal pain, fever, chills, back pain, or any other complaints. Prescriptions: New ondansetron 4 mg tablet,disintegrating 4 mg PO Q8H 3 Days Qty: 9 0RF No Action gabapentin 800 mg tablet 1 tab PO TID buprenorphine-naloxone 8-2 mg film 1 strip sublingual BID buprenorphine-naloxone [Suboxone] 8-2 mg film 2 film sublingual DAILY Qty: 4 0RF Rx Instructions: place 1 strip/tab under (each) side of tongue vancomycin 125 mg capsule 125 mg PO QID Qty: 40 0RF vancomycin 125 mg capsule 125 mg PO QID Qty: 16 0RF Referrals: [facility] [Provider Group] (Call to establish and follow up with a GI specialist.) [facility] [Primary Care Provider] - Stand Alone Forms: Work/School Release Interventions: ED Discharge Assessment Last Done: 12/26/23 12:01 Discharge Date/Time: 12/26/23 12:01 Print Language: Japanese
--- NOTE | 2023-12-26 08:33 | ECG_ITS ---
Test Reason : nausea/vomiting Blood Pressure : / mmHG Vent. Rate : 069 BPM Atrial Rate : 069 BPM P-R Int : 186 ms QRS Dur : 084 ms QT Int : 336 ms P-R-T Axes : 042 095 011 degrees QTc Int : 360 ms Normal sinus rhythm Rightward axis Borderline ECG When compared with ECG of 23-JUN-2021 15:56, No significant change was found Referred By: No Altman Electronically Signed By:BASILIA DELGADILLO
[2023-12-26 08:38] LABS: Alanine Aminotransferase 196 U/L (0-40); Albumin Level 3.9 g/dL (3.5-5.0); Alkaline Phosphatase 65 U/L (39-117); Anion Gap 10 (12-20); Aspartate Amino Transferase 45 U/L (5-37); Blood Urea Nitrogen 14 mg/dL (9-16); Calcium 8.6 mg/dL (8.4-10.2); Carbon Dioxide 25 mmol/L (22-29); Chloride 106 mmol/L (96-108); Creatinine Clr Calc Pharmacy 115.9; Estimated Glomerular Filt Rate > 60; Glucose Random 109 mg/dL (60-115); Magnesium 1.9 mg/dL (1.6-2.6); Sodium 136 mmol/L (135-145); Total Protein 6.4 g/dL (6.5-8.0)
[2023-12-26] MEDS: ondansetron HCL 4 MG/2 ML VIAL IVPUSH (08:42)
[2023-12-26] MEDS: Pantoprazole Sodium 40 MG/10 ML VIAL IVPUSH (08:42)
[2023-12-26] MEDS: Sucralfate Oral Suspension 1 GM/10 ML ORAL.SUSP PO (08:43)
[2023-12-26] MEDS: droPERidol 5 MG/2 ML VIAL 1.25 MG IVPUSH (08:59)
[2023-12-26] MEDS: iohexoL 350 MG/ML 75 ML INFUS..BTL 85 ML IV (09:13)
[2023-12-26 09:16] LABS: Ethanol < 10 mg/dL; Lipase 201 U/L (8-78)
[2023-12-26] MEDS: 0.9 % Sodium Chloride 1,000 ML 999 ML IV (09:42)
[2023-12-26 09:56] LABS: Appearance Urine Clear; Color Urine Yellow; Glucose Urine UA Negative (Negative); Leukocyte Esterase Urine Negative (Negative); Nitrite Urine Negative (Negative); Specific Gravity - Urine >= 1.030 (1.005-1.025); Urine Blood Negative (Negative); Urine Ketones Negative (Negative); Urine Protein Negative (Neg-Trace)
[2023-12-26 10:10] LABS: Amphetamine Screen Urine Not Detected (Not Detect); Barbiturates, Urine Not Detected (Not Detect); Benzodiazepines Screen Urine Not Detected (Not Detect); Buprenorphine Scr Positive (Not Detect); Cannabinoid Screen Urine POSITIVE (Not Detect); Cocaine Screen Urine Not Detected (Not Detect); Fentanyl, urine Not Detected (Not Detect); Methadone Screen, Urine Not Detected (Not Detect); Opiate Screen Urine Not Detected (Not Detect); Oxycodone Screen Urine Not Detected (Not Detect); Phencyclidine Screen Urine Not Detected (Not Detect)
[2023-12-26 10:54] VITALS: BP 150/92; PULSE 69; RESP 18; TEMP 36.6; O2SAT 97
[2023-12-26 12:01] VITALS: BP 140/88; PULSE 82; RESP 18; TEMP 36.8; O2SAT 97
== END 2023-12-26 12:01 | disposition home or self-care (01) ==
PROVIDERS: Physician Assistant Medical; Emergency Provider Emergency Medicine
DX: K85.90 Acute pancreatitis without necrosis or infection, unspecified (principal); K52.9 Noninfective gastroenteritis and colitis, unspecified; R10.30 Lower abdominal pain, unspecified; R50.9 Fever, unspecified; R11.2 Nausea with vomiting, unspecified; Z86.19 Personal history of other infectious and parasitic diseases
CPT/HCPCS: 36415; 74177; 80053; 80307; 81003; 83690; 83735; 85025; 93005; 96361; 96374; 96375; 99284; 99285; J1790; J2405; J2470; Q9967

== ENCOUNTER → 2023-12-26 08:33 | Outpatient (BNV) | payer MEDICAID, SELFPAY | PROVIDERS: Emergency Provider Emergency Medicine; Visit Provider Internal Medicine | DX: R94.31 Abnormal electrocardiogram [ECG] [EKG] (principal); R11.2 Nausea with vomiting, unspecified | CPT/HCPCS: 93010 ==

== ENCOUNTER 2024-01-07 13:52 | Inpatient (IN) | payer MEDICAID, SELFPAY ==
[2024-01-07 15:05] VITALS: BP 153/69; PULSE 89; RESP 18; TEMP 36.8; O2SAT 98; BMI 30.7
[2024-01-07 17:06] LABS: Basophils Percent Auto 0.3 % (0-2); Hematocrit 47.6 % (42.0-52.0); Hemoglobin 16.4 g/dl (14.0-18.0); Imm Gran Abs Auto 0.03 X10*3/uL (0.00-0.03); Imm Gran Pct Auto 0.3 % (0.0-0.4); Lymphocytes Absolute Auto 1.2 X10*3/uL (1.2-4.9); Lymphocytes Percent Auto 10.5 % (20-40); Mean Corpuscular HGB Conc 34.5 g/dl (31.0-36.0); Mean Corpuscular Hemoglobin 30.8 pg (27.0-33.0); Mean Corpuscular Volume 89.5 fL (80.0-98.0); Mean Platelet Volume 9.8 fL (9.4-12.4); Monocytes Absolute Auto 0.3 X10*3/uL (0.1-1.2); Monocytes Percent Auto 2.8 % (2-11); Neutrophils Absolute Auto 9.9 x10*3/uL (2.0-8.3); Neutrophils Percent Auto 86.1 % (45-73); Platelet Count 420 X10*3/uL (160-400); Red Blood Count 5.32 X10*6/uL (4.60-5.80); Red Cell Distribution Width 16.6 % (11.0-16.0); White Blood Count 11.5 X10*3/uL (4.8-10.8)
[2024-01-07 17:08] LABS: MANUAL DIFF FLAG NO
--- NOTE | 2024-01-07 18:32 | ED.ABDPAIN ---
HPI - Abdominal Pain General Chief Complaint: Abdominal Pain Stated Complaint: vomiting blood Time Seen by Provider: 01/07/24 18:09 History of Present Illness HPI narrative: Patient is a 38-year-old male with a history of previous anabolic steroid use. Presented today with having sudden onset of nausea vomiting abdominal cramping. Patient claims that he retched multiple times. Initially was bile. It was subsequently followed by clearish liquid. Then it was followed by streaks of blood along with mucus. Patient denies any blood in his stool. There is no fever no chills no chest pain or shortness of breath. No diaphoresis. No history of marijuana use. Patient from home. Had similar episodes about 2 weeks ago at that time got a CT scan of the abdomen show enteritis. Was here about a month ago at that time got an ultrasound of the right upper quadrant which was grossly negative. Patient presented again the 3rd time. MD elicited complaint: abdominal pain Related Data Home Medications ?Medication ?Instructions ?Recorded ?Confirmed buprenorphine 8 mg-naloxone 2 mg 1 strip sublingual BID 06/23/21 06/26/21 sublingual film gabapentin 800 mg tablet 1 tab PO TID 06/23/21 06/23/21 Previous Rx's ?Medication ?Instructions ?Recorded buprenorphine 8 mg-naloxone 2 mg 2 film sublingual DAILY #4 ea 12/22/21 sublingual film (Suboxone) vancomycin 125 mg capsule 125 mg PO QID #40 caps 04/02/23 vancomycin 125 mg capsule 125 mg PO QID #16 caps 04/11/23 ondansetron 4 mg disintegrating 4 mg PO Q8H 3 days #9 tabs 12/26/23 tablet Allergies Allergy/AdvReac Type Severity Reaction Status Date / Time No Known Allergies Allergy Verified 01/07/24 15:09 [No Known Allergies*] [facility] Past Medical History Attestation statement: The following information was validated with the patient. Medical History Opioid use disorder Cocaine use disorder MDD (major depressive disorder), recurrent episode, moderate Suicidal ideation Opiate abuse, episodic Hepatitis C Social History Social History Household Members: None Housing: Other Housing Other:: sober living Do you presently have visiting nurse or other home services: No Alcohol intake: former Patient Tobacco Use Status: Former Tobacco user Smoked in Last 30 Days: Yes e-Cigarette/Vaping Use: Former Use Second Hand Smoke Exposure: No Use of substances other than those prescribed or required for medical reasons: Yes Substance Use Type: Marijuana Advance Directives: No Advance Directives Information Provided: No service: No Sexual orientation: Straight/Heterosexual Physical Exam ED Vital Signs: Vital Signs - 24 hr 01/07/24 15:05 01/07/24 18:34 Temperature 98.3 F 98.4 F Pulse Rate 89 105 H Respiratory Rate 18 18 Blood Pressure 153/69 H 139/85 Pulse Oximetry 98 97 Oxygen Delivery Method Room Air Room Air BMI result Body Mass Index 30.7 Appearance: Alert. Oriented X3. No acute distress. Eyes: Pupils equal, round and reactive to light. ENT: Pharynx normal. Neck: Normal inspection. Neck supple. No lymph nodes noted. No crepitus CVS: Normal heart rate and rhythm. Pulses normal. Normal S1 and S2 Respiratory: No respiratory distress. Breath sounds normal. No Wheezing. No rales Abdomen: Soft and nontender. No rigidity. No distention. good BS x4 Skin: Skin warm and dry. Normal skin color. Normal skin turgor. Rectal exam done with nurse Cristina present. It showed brown stool. It was sent up for guaiac. Extremities: No lower extremity edema. Neurovascular intact to all extremities. No Lacerations. No Rash Neuro: Oriented X 3. No motor deficit. No sensory deficit. Moving all extermities. No slurred speech Medical Decision Making Medical Decision Making MDM Narrative: Patient had episodes of nausea vomiting. LFTs were slightly elevated bed approximately the same range. Labs consistent with having dehydration with significant amount of ketones in the urine. Elevated BUN and creatinine likely secondary to dehydration. Patient's initial potassium was over 6. An EKG was done. It did show significant peaked T-waves. My interpretation of that EKG showed a sinus rhythm heart rate was 90 MO QRS QTC was normal there is significant peaked T-wave on that EKG. Patient was given treatment including sodium bicarb, insulin glucose, IV fluids, calcium gluconate. Placed on a monitor. IV fluids given. Patient's case consulted by the GI team. Had a long discussion with patient and family. Family does not wish for patient to go home as patient had repeated nausea vomiting so not improving. [place] at this time patient does not require a repeat CT scan as a CT scan was done 2 weeks ago. Hospitalist team was contacted. Will repeat electrolyte again after 2 L of fluids. Currently in stable condition. Differential Diagnosis Differential Diagnoses: The differential diagnosis associated with the presentation includes Dehydration, acute renal insufficiency, Admission/Observation Consideration of admission/observation: Escalation of care including admission/observation considered Consult Healthcare Provider Management of the patient was discussed with: Hospitalist Lab Data MDM Lab Attestation statement: I reviewed the patient's lab results. 01/07/24 16:58 01/07/24 19:19 Labs: Lab Results 01/07/24 01/07/24 01/07/24 Range/Units 16:58 18:28 18:29 WBC 11.5 H (4.8-10.8) X10*3/uL RBC 5.32 (4.60-5.80) X10*6/uL Hgb 16.4 (14.0-18.0) g/dl Hct 47.6 (42.0-52.0) % MCV 89.5 (80.0-98.0) fL MCH 30.8 (27.0-33.0) pg MCHC 34.5 (31.0-36.0) g/dl RDW 16.6 H (11.0-16.0) % Plt Count 420 H (160-400) X10*3/uL MPV 9.8 (9.4-12.4) fL Immature Gran % (Auto) 0.3 (0.0-0.4) % Neut % (Auto) 86.1 H (45-73) % Lymph % (Auto) 10.5 L (20-40) % [place] % (Auto) 2.8 (2-11) % Eos % (Auto) 0.0 (0-4) % Baso % (Auto) 0.3 (0-2) % Lymph # (Auto) 1.2 (1.2-4.9) X10*3/uL [place] # (Auto) 0.3 (0.1-1.2) X10*3/uL Eos # (Auto) 0.0 (0.0-0.4) X10*3/uL Baso # (Auto) 0.0 (0.0-0.2) X10*3/uL Abs Immat Gran (auto) 0.03 (0.00-0.03) X10*3/uL Absolute Neuts (auto) 9.9 H (2.0-8.3) x10*3/uL Absolute Nucleated RBC 0.000 (0.0-0.012) X10*3/uL Nucleated RBC % (auto) 0.0 (0.0-0.2) /100WBC Sodium 134 L (135-145) mmol/L Potassium 6.5 H* D (3.3-5.1) mmol/L Chloride 96 (96-108) mmol/L Carbon Dioxide 21 L (22-29) mmol/L Anion Gap 24 H (12-20) BUN 18 H (9-16) mg/dL Creatinine 1.72 H (0.5-1.4) mg/dL Estim Creat Clear Calc 61.9 Estimated GFR 45 POC Glucose (60-115) mg/dL Random Glucose 80 (60-115) mg/dL Insulin Level (2-29) uU/mL Calcium 10.8 H D (8.4-10.2) mg/dL Total Bilirubin 2.0 H (0.0-1.0) mg/dL Direct Bilirubin 0.8 H (0.0-0.5) mg/dL AST 110 H (5-37) U/L ALT 256 H (0-40) U/L Alkaline Phosphatase 60 (39-117) U/L Total Protein 8.4 H (6.5-8.0) g/dL Albumin 4.9 (3.5-5.0) g/dL Lipase 20 (8-78) U/L Urine Color Dark Yellow Urine Appearance Clear Urine pH 6.0 (5.0-9.0) Ur Specific [place] >= 1.030 H (1.005-1.025) Urine Protein 30 (1+) H (Neg-Trace) mg/dL Urine Glucose (UA) Negative (Negative) mg/dL Urine Ketones 80 (Negative) mg/dL Urine Blood Negative (Negative) Urine Nitrite Negative (Negative) Ur Leukocyte Esterase Trace H (Negative) Urine RBC 0-2 (0-2) /HPF Urine WBC 0-5 (0-5) /HPF Ur Squamous Epith Cells 0-2 (0-2) /HPF Urine Bacteria None Seen (None Seen) Hyaline Casts 0-2 (0-2) /LPF Stool Occult Blood (NEGATIVE) 01/07/24 01/07/24 01/07/24 Range/Units 18:36 19:19 19:21 WBC (4.8-10.8) X10*3/uL RBC (4.60-5.80) X10*6/uL Hgb (14.0-18.0) g/dl Hct (42.0-52.0) % MCV (80.0-98.0) fL MCH (27.0-33.0) pg MCHC (31.0-36.0) g/dl RDW (11.0-16.0) % Plt Count (160-400) X10*3/uL MPV (9.4-12.4) fL Immature Gran % (Auto) (0.0-0.4) % Neut % (Auto) (45-73) % Lymph % (Auto) (20-40) % [place] % (Auto) (2-11) % Eos % (Auto) (0-4) % Baso % (Auto) (0-2) % Lymph # (Auto) (1.2-4.9) X10*3/uL [place] # (Auto) (0.1-1.2) X10*3/uL Eos # (Auto) (0.0-0.4) X10*3/uL Baso # (Auto) (0.0-0.2) X10*3/uL Abs Immat Gran (auto) (0.00-0.03) X10*3/uL Absolute Neuts (auto) (2.0-8.3) x10*3/uL Absolute Nucleated RBC (0.0-0.012) X10*3/uL Nucleated RBC % (auto) (0.0-0.2) /100WBC Sodium 134 L (135-145) mmol/L Potassium 5.3 H (3.3-5.1) mmol/L Chloride 99 (96-108) mmol/L Carbon Dioxide 21 L (22-29) mmol/L Anion Gap 19 (12-20) BUN 17 H (9-16) mg/dL Creatinine 1.63 H (0.5-1.4) mg/dL Estim Creat Clear Calc 65.3 Estimated GFR 48 POC Glucose 74 (60-115) mg/dL Random Glucose 70 (60-115) mg/dL Insulin Level < 2 L (2-29) uU/mL Calcium 10.7 H (8.4-10.2) mg/dL Total Bilirubin (0.0-1.0) mg/dL Direct Bilirubin (0.0-0.5) mg/dL AST (5-37) U/L ALT (0-40) U/L Alkaline Phosphatase (39-117) U/L Total Protein (6.5-8.0) g/dL Albumin (3.5-5.0) g/dL Lipase (8-78) U/L Urine Color Urine Appearance Urine pH (5.0-9.0) Ur Specific [place] (1.005-1.025) Urine Protein (Neg-Trace) mg/dL Urine Glucose (UA) (Negative) mg/dL Urine Ketones (Negative) mg/dL Urine Blood (Negative) Urine Nitrite (Negative) Ur Leukocyte Esterase (Negative) Urine RBC (0-2) /HPF Urine WBC (0-5) /HPF Ur Squamous Epith Cells (0-2) /HPF Urine Bacteria (None Seen) Hyaline Casts (0-2) /LPF Stool Occult Blood POSITIVE (NEGATIVE) 01/06/ Range/Units 20:10 WBC (4.8-10.8) X10*3/uL RBC (4.60-5.80) X10*6/uL Hgb (14.0-18.0) g/dl Hct (42.0-52.0) % MCV (80.0-98.0) fL MCH (27.0-33.0) pg MCHC (31.0-36.0) g/dl RDW (11.0-16.0) % Plt Count (160-400) X10*3/uL MPV (9.4-12.4) fL Immature Gran % (Auto) (0.0-0.4) % Neut % (Auto) (45-73) % Lymph % (Auto) (20-40) % [place] % (Auto) (2-11) % Eos % (Auto) (0-4) % Baso % (Auto) (0-2) % Lymph # (Auto) (1.2-4.9) X10*3/uL [place] # (Auto) (0.1-1.2) X10*3/uL Eos # (Auto) (0.0-0.4) X10*3/uL Baso # (Auto) (0.0-0.2) X10*3/uL Abs Immat Gran (auto) (0.00-0.03) X10*3/uL Absolute Neuts (auto) (2.0-8.3) x10*3/uL Absolute Nucleated RBC (0.0-0.012) X10*3/uL Nucleated RBC % (auto) (0.0-0.2) /100WBC Sodium (135-145) mmol/L Potassium (3.3-5.1) mmol/L Chloride (96-108) mmol/L Carbon Dioxide (22-29) mmol/L Anion Gap (12-20) BUN (9-16) mg/dL Creatinine (0.5-1.4) mg/dL Estim Creat Clear Calc Estimated GFR POC Glucose 72 (60-115) mg/dL Random Glucose (60-115) mg/dL Insulin Level (2-29) uU/mL Calcium (8.4-10.2) mg/dL Total Bilirubin (0.0-1.0) mg/dL Direct Bilirubin (0.0-0.5) mg/dL AST (5-37) U/L ALT (0-40) U/L Alkaline Phosphatase (39-117) U/L Total Protein (6.5-8.0) g/dL Albumin (3.5-5.0) g/dL Lipase (8-78) U/L Urine Color Urine Appearance Urine pH (5.0-9.0) Ur Specific [place] (1.005-1.025) Urine Protein (Neg-Trace) mg/dL Urine Glucose (UA) (Negative) mg/dL Urine Ketones (Negative) mg/dL Urine Blood (Negative) Urine Nitrite (Negative) Ur Leukocyte Esterase (Negative) Urine RBC (0-2) /HPF Urine WBC (0-5) /HPF Ur Squamous Epith Cells (0-2) /HPF Urine Bacteria (None Seen) Hyaline Casts (0-2) /LPF Stool Occult Blood (NEGATIVE) Independent Interpretation I performed an independent interpretation of an: EKG (My interpretation of patient's initial EKG showed a sinus rhythm heart rate is 90 MO QRS QTC within normal limits is significant peaked T-waves noted over the anterior leads.) Independent Historian Clinical information obtained from an independent historian. History obtained from or confirmed by: Spouse External Record Review External record reviewed: Inpatient record Previous CT scan results previous ultrasound results reviewed Chronic Conditions History of marijuana use Medications Administered Discontinued Medications Generic Name Dose Route Start Last Admin Trade Name Freq PRN Reason Stop Dose Admin Sodium Chloride 1,000 mls @ 999 mls/hr 01/07/24 18:45 01/07/24 18:37 Ns IV 01/07/24 19:45 999 mls/hr .Q1H1M TORI Administration Sodium Chloride 1,000 mls @ 999 mls/hr 01/07/24 19:00 01/07/24 19:51 Ns IV 01/07/24 20:00 999 mls/hr .Q1H1M TORI Administration Calcium Gluconate 1 gm in 50 mls @ 50 mls/hr 01/07/24 19:16 01/07/24 19:39 Calcium Gluconate IV 01/07/24 20:15 50 mls/hr ONCE ONE Administration Insulin Human Regular 5 unit 01/07/24 19:15 01/07/24 19:47 Insulin Regular, Human 100 Unit/Ml 10 Ml Vial IVPUSH 01/07/24 19:16 5 unit ONCE ONE Administration Sodium Bicarbonate 50 meq 01/07/24 19:15 01/07/24 19:42 Sodium Bicarbonate 8.4% 50 Meq/50 Ml Syringe IVPUSH 01/07/24 19:16 50 meq ONCE ONE Administration Critical Care Time Critical Care Time Critical Care Time: Yes Total Critical Care Time: 35 Attestation: I have personally provided 35 minutes of critical care time exclusive of time spent on separately billable procedures. ?Time includes review of lab data, radiology results, discussion with consultants, and monitoring for potential decompensation. ?Interventions were performed as documented above Discharge Plan Discharge Clinical Impression: Acute dehydration, Acute kidney insufficiency, Acute hyperkalemia Patient Disposition: Admitted As Inpatient Print Language: Romansh
[2024-01-07 18:34] VITALS: BP 139/85; PULSE 105; RESP 18; TEMP 36.9; O2SAT 97
[2024-01-07] MEDS: 0.9 % Sodium Chloride 1,000 ML 999 ML IV ×2 (18:37→19:51)
[2024-01-07 18:43] LABS: Appearance Urine Clear; Color Urine Dark Yellow; Glucose Urine UA Negative (Negative); Leukocyte Esterase Urine Trace (Negative); Nitrite Urine Negative (Negative); Specific Gravity - Urine >= 1.030 (1.005-1.025); UMIC TRIGGER UACC YES; Urine Blood Negative (Negative); Urine Ketones 80 mg/dL (Negative); Urine Protein 30 (1+) mg/dL (Neg-Trace)
[2024-01-07 18:48] LABS: Bacteria Urine None Seen (None Seen); Hyaline Casts Urine 0-2 /LPF (0-2); RBC Urine 0-2 /HPF (0-2); Squamous Epithelial Cell Urine 0-2 /HPF (0-2); WBC Urine 0-5 /HPF (0-5)
[2024-01-07 18:53] LABS: OBS Int Ctl Valid YES; OBS1 POSITIVE (NEGATIVE)
[2024-01-07 18:53] LABS: Alanine Aminotransferase 256 U/L (0-40); Albumin Level 4.9 g/dL (3.5-5.0); Alkaline Phosphatase 60 U/L (39-117); Anion Gap 24 (12-20); Aspartate Amino Transferase 110 U/L (5-37); Bilirubin Direct 0.8 mg/dL (0.0-0.5); Blood Urea Nitrogen 18 mg/dL (9-16); Calcium 10.8 mg/dL (8.4-10.2); Carbon Dioxide 21 mmol/L (22-29); Chloride 96 mmol/L (96-108); Creatinine Clr Calc Pharmacy 61.9; Estimated Glomerular Filt Rate 45; Glucose Random 80 mg/dL (60-115); Lipase 20 U/L (8-78); Potassium 6.5 mmol/L (3.3-5.1); Sodium 134 mmol/L (135-145); Total Protein 8.4 g/dL (6.5-8.0)
--- NOTE | 2024-01-07 18:53 | ECG_ITS ---
Test Reason : ABDOMINAL PAIN Blood Pressure : / mmHG Vent. Rate : 093 BPM Atrial Rate : 093 BPM P-R Int : 158 ms QRS Dur : 082 ms QT Int : 310 ms P-R-T Axes : 051 105 013 degrees QTc Int : 385 ms Normal sinus rhythm Rightward axis Borderline ECG When compared with ECG of 26-DEC-2023 09:29, No significant change was found Referred By: Risa Levine Electronically Signed By:BASILIA DELGADILLO
--- NOTE | 2024-01-07 19:11 | PC.NURSE ---
This RN assumed pt care @ 1900. Pt resting in bed, no signs of distress. Pts family at bedside. Pt denies pain at this time. EKG complete. Plan of care ongoing.
[2024-01-07 19:27] LABS: Glucose, Whole Blood 74 mg/dL (60-115)
[2024-01-07 19:39] LABS: Anion Gap 19 (12-20); Blood Urea Nitrogen 17 mg/dL (9-16); Calcium 10.7 mg/dL (8.4-10.2); Carbon Dioxide 21 mmol/L (22-29); Chloride 99 mmol/L (96-108); Creatinine Clr Calc Pharmacy 65.3; Estimated Glomerular Filt Rate 48; Glucose Random 70 mg/dL (60-115); Potassium 5.3 mmol/L (3.3-5.1); Sodium 134 mmol/L (135-145)
[2024-01-07] MEDS: Calcium Gluconate/NaCl,Iso-Osm 1 GM/50 ML PLAST..BAG IV (19:39)
[2024-01-07] MEDS: Sodium Bicarbonate 8.4% 50 MEQ/50 ML SYRINGE IVPUSH (19:42)
[2024-01-07] MEDS: Insulin Regular, Human 100 UNIT/ML 10 ML VIAL IVPUSH (19:47)
--- NOTE | 2024-01-07 19:52 | PC.NURSE ---
Pt medicated per [facility] Plan of care ongoing.
[2024-01-07 20:14] LABS: Glucose, Whole Blood 72 mg/dL (60-115)
[2024-01-07 21:39] LABS: Insulin < 2 uU/mL (2-29)
--- NOTE | 2024-01-07 21:41 | ECG_ITS ---
Test Reason : HYPERKALEMIA Blood Pressure : / mmHG Vent. Rate : 103 BPM Atrial Rate : 103 BPM P-R Int : 158 ms QRS Dur : 082 ms QT Int : 298 ms P-R-T Axes : 049 094 -05 degrees QTc Int : 390 ms Sinus tachycardia Rightward axis Nonspecific T wave abnormality Abnormal ECG When compared with ECG of 07-JAN-2024 19:02, No significant change was found Referred By: Risa Levine Electronically Signed By:BASILIA DELGADILLO
[2024-01-07] MEDS: Metoclopramide HCl 10 MG/2 ML VIAL IVPUSH (21:54)
--- NOTE | 2024-01-07 21:56 | PC.NURSE ---
Pt medicated per may. Plan of care ongoing.
--- NOTE | 2024-01-07 22:26 | PHA.MEDREC ---
Addendum entered by Zohreh Ta [facility] 01/08/24 09:50: [facility] reviewed Addendum entered by Rox Alvarenga 01/08/24 09:34: Called and spoke to [facility] to confirm the patient dose of Sublocade and they confirmed he is getting 300mg and he got his last dose 12/10. Addendum entered by Kacie Rob, [facility] 01/07/24 22:34: reviewed by [facility]. Original Note: Pharmacy Consult ? Medication Reconciliation Pharmacy has completed the medication reconciliation. Spoke to patient to confirm med list. patent states he is only taking Gabapentin 800 mg Tid and he gets monthly injections of Sublocade from [facility] ([phone]) in [place]. Not sure of the dose. will have morning med rec follow up with [facility] to get correct dosing and will update med rec. Patient states he is due for an injection tomorrow.
[2024-01-07 23:19] LABS: Anion Gap 14 (12-20); Blood Urea Nitrogen 17 mg/dL (9-16); Carbon Dioxide 26 mmol/L (22-29); Chloride 100 mmol/L (96-108); Creatinine Clr Calc Pharmacy 69.1; Estimated Glomerular Filt Rate 51; Glucose Random 116 mg/dL (60-115); Potassium 4.9 mmol/L (3.3-5.1); Sodium 135 mmol/L (135-145)
--- NOTE | 2024-01-07 23:25 | P.HPHOSP_ITS ---
History of Present Illness Date of Service: 01/07/24 Attending physician on admission: Chago Garrett Chief Complaint: Vomiting Roscoe Cormier is a very pleasant 38 years old man with past medical history significant for prior episode of rhabdomyolysis, opioid us disorder on buprenorphine injection every 21 days, and neuropathy on gabapentin presents to the emergency department complaining of multiple episodes vomiting associated with diaphoresis and dark urine. He had an episode of bright red bloody vomiting. He denies associated abdominal pain, bloody urine, fever or diarrhea. He reported constipation. He has been anabolic steroids for the last week. He has been using a started on and off for the last 3 years. In the ED, he was found to have stable vital signs. Blood workup showed mild leukocytosis of 11.5. Hemoglobin 16.4 and platelets 420. Initially his potassium was elevated at 6.5 the sample was hemolyzed (repeat K level was 5.3 and now normalized. There is mild hyponatremia that normalized. Creatinine was found to be elevated at 1.72. CO2 was initially 21 and now 26. Urinalysis showed elevated specific gravity, trace proteinuria and trace leukocyte esterase, RBCs 0-2 and negative blood. Urinalysis positive for marijuana and buprenorphine. ECG showed peaked T-waves only in V2. ED tx: NS 2 L bolus, bicarb 50 mEq IV, insulin R 5 units IV and Reglan 10 mg IV> Review of Systems 2 Review of Systems: All 12 systems were reviewed and normal except as noted in HPI. [facility] Medical History Opioid use disorder Cocaine use disorder MDD (major depressive disorder), recurrent episode, moderate Suicidal ideation Opiate abuse, episodic Hepatitis C Social History Household Members: None Housing: Other Housing Other:: sober living Do you presently have visiting nurse or other home services: No Alcohol intake: former Patient Tobacco Use Status: Former Tobacco user Smoked in Last 30 Days: Yes e-Cigarette/Vaping Use: Former Use Second Hand Smoke Exposure: No Use of substances other than those prescribed or required for medical reasons: Yes Substance Use Type: Marijuana Advance Directives: No Advance Directives Information Provided: No service: No Sexual orientation: Straight/Heterosexual Meds Allergies Allergy/AdvReac Type Severity Reaction Status Date / Time No Known Allergies Allergy Verified 01/07/24 15:09 [No Known Allergies*] Active Medications: Current Medications Dextrose (D10) 250 mls @ 750 mls/hr IV Q15M PRN PRN Reason: per Hypoglycemia Standing Ord. Sodium Chloride (Ns) 1,000 mls @ 150 mls/hr IVCONT .Q6H40M TORI Pantoprazole Sodium (Pantoprazole Sodium 40 Mg/10 Ml Vial) 40 mg IVPUSH Q12H [facility] Home Medications ?Medication ?Instructions ?Recorded ?Confirmed ?Last Taken ?Type buprenorphine 300 mg/1.5 mL mg subcut QMONTH 01/07/24 Unknown History solution,exten.rel.subcutaneous syringe (Sublocade) gabapentin 800 mg tablet 800 mg PO TID 01/07/24 01/07/24 01/07/24 History Physical Exam 2 Vital Signs and Narrative: Vital Signs: Last Vital Signs Temp 98.4 F 01/07/24 18:34 Pulse 105 H 01/07/24 18:34 Resp 18 01/07/24 18:34 BP 139/85 01/07/24 18:34 Pulse Ox 97 01/07/24 18:34 O2 Del Method Room Air 01/07/24 18:34 BMI result Body Mass Index 30.7 Constitutional - Awake and Alert, No apparent distress. Pleasant. Cooperative. HEENT - PERRL, EOMI. Normal sclerae. Heart- tachycardic. Regular rhythm. Lungs - Normal lung expansion, Normal respiratory effort, No respiratory distress, CTA bilaterally Abdomen - NT / ND; +BS; No rebound or guarding Extremities - no calf tenderness bilaterally, no swelling Musculoskeletal - Normal inspection, normal ROM Skin - Warm/Dry Neurological - Alert & oriented x3. No focal weakness grossly noted. Normal speech. Psychological - Appropriate affect Results Labs 01/07/24 16:58 01/07/24 23:02 Labs: Laboratory Results - last 24 hr 01/07/24 01/07/24 01/07/24 16:58 18:28 18:29 MCV 89.5 MCH 30.8 MCHC 34.5 RDW 16.6 H Plt Count 420 H MPV 9.8 Immature Gran % (Auto) 0.3 Neut % (Auto) 86.1 H Lymph % (Auto) 10.5 L [place] % (Auto) 2.8 Eos % (Auto) 0.0 Baso % (Auto) 0.3 Lymph # (Auto) 1.2 [place] # (Auto) 0.3 Eos # (Auto) 0.0 Baso # (Auto) 0.0 Abs Immat Gran (auto) 0.03 Absolute Neuts (auto) 9.9 H Absolute Nucleated RBC 0.000 Nucleated RBC % (auto) 0.0 Anion Gap 24 H Estim Creat Clear Calc 61.9 Estimated GFR 45 POC Glucose Random Glucose 80 Insulin Level Calcium 10.8 H D Total Bilirubin 2.0 H Direct Bilirubin 0.8 H AST 110 H ALT 256 H Alkaline Phosphatase 60 Total Creatine Kinase Total Protein 8.4 H Albumin 4.9 Lipase 20 Urine Color Dark Yellow Urine Appearance Clear Urine pH 6.0 Ur Specific [place] >= 1.030 H Urine Protein 30 (1+) H Urine Glucose (UA) Negative Urine Ketones 80 Urine Blood Negative Urine Nitrite Negative Ur Leukocyte Esterase Trace H Urine RBC 0-2 Urine WBC 0-5 Ur Squamous Epith Cells 0-2 Urine Bacteria None Seen Hyaline Casts 0-2 Stool Occult Blood 01/07/24 01/07/24 01/07/24 18:36 19:19 19:21 MCV MCH MCHC RDW Plt Count MPV Immature Gran % (Auto) Neut % (Auto) Lymph % (Auto) [place] % (Auto) Eos % (Auto) Baso % (Auto) Lymph # (Auto) [place] # (Auto) Eos # (Auto) Baso # (Auto) Abs Immat Gran (auto) Absolute Neuts (auto) Absolute Nucleated RBC Nucleated RBC % (auto) Anion Gap 19 Estim Creat Clear Calc 65.3 Estimated GFR 48 POC Glucose 74 Random Glucose 70 Insulin Level < 2 L Calcium 10.7 H Total Bilirubin Direct Bilirubin AST ALT Alkaline Phosphatase Total Creatine Kinase 3591 H Total Protein Albumin Lipase Urine Color Urine Appearance Urine pH Ur Specific [place] Urine Protein Urine Glucose (UA) Urine Ketones Urine Blood Urine Nitrite Ur Leukocyte Esterase Urine RBC Urine WBC Ur Squamous Epith Cells Urine Bacteria Hyaline Casts Stool Occult Blood POSITIVE 01/07/24 01/07/24 20:10 23:02 MCV MCH MCHC RDW Plt Count MPV Immature Gran % (Auto) Neut % (Auto) Lymph % (Auto) [place] % (Auto) Eos % (Auto) Baso % (Auto) Lymph # (Auto) [place] # (Auto) Eos # (Auto) Baso # (Auto) Abs Immat Gran (auto) Absolute Neuts (auto) Absolute Nucleated RBC Nucleated RBC % (auto) Anion Gap 14 Estim Creat Clear Calc 69.1 Estimated GFR 51 POC Glucose 72 Random Glucose 116 H Insulin Level Calcium 9.0 D Total Bilirubin Direct Bilirubin AST ALT Alkaline Phosphatase Total Creatine Kinase Total Protein Albumin Lipase Urine Color Urine Appearance Urine pH Ur Specific [place] Urine Protein Urine Glucose (UA) Urine Ketones Urine Blood Urine Nitrite Ur Leukocyte Esterase Urine RBC Urine WBC Ur Squamous Epith Cells Urine Bacteria Hyaline Casts Stool Occult Blood Assessment and Plan (1) BIB (acute kidney injury): Status: Acute (2) Rhabdomyolysis: Qualifiers: Rhabdomyolysis type: non-traumatic Qualified Code(s): M62.82 - Rhabdomyolysis Status: Acute (3) History of anabolic steroid use: Status: Acute (4) Hyperkalemia: Status: Acute Plan Roscoe Cormier is a very pleasant 38 y/o man admitted with: * Acute kidney injury secondary to rhabdomyolysis due to anabolic steroid and gabapentin use; vomiting also contributing to this. Admit to hospitalist service. Continue IV fluids. Patient has been advised to avoid use of anabolic steroids and gabapentin. Avoid nephrotoxic agents. Continue to monitor renal function and total CK.. * Nausea and vomiting, likely secondary to above, cannabinoid syndrome? Antiemetic therapy as needed. * Bloody emesis X1, likely due to Georgina-Chamorro tear due to multiple emesis episode. Antiemetic therapy as needed. Start treatment with Protonix IV. GI consult. * Mild hyperkalemia secondary to BIB, resolved. * Opiate use disorder. Patient received injections of buprenorphine. DVT prophylaxis: Early ambulation and SCDs. Code status: Full Patient will need hospitalization for at least 2 midnights for BIB due to rhabdomyolysis treatment with IV fluids, antiemetic therapy and continuous monitoring of renal function. Quality Stroke Does the patient have a stroke diagnosis?: No VTE Prior VTE?: No VTE Risk Level:: Medical - moderate - high VTE Device Contraindication: N/A - Device Ordered VTE Drug Contraindication: Treatment Not Indicated
[2024-01-07 23:30] LABS: Amphetamine Screen Urine Not Detected (Not Detect); Barbiturates, Urine Not Detected (Not Detect); Benzodiazepines Screen Urine Not Detected (Not Detect); Buprenorphine Scr Positive (Not Detect); Cannabinoid Screen Urine POSITIVE (Not Detect); Cocaine Screen Urine Not Detected (Not Detect); Fentanyl, urine Not Detected (Not Detect); Methadone Screen, Urine Not Detected (Not Detect); Opiate Screen Urine Not Detected (Not Detect); Oxycodone Screen Urine Not Detected (Not Detect); Phencyclidine Screen Urine Not Detected (Not Detect)
[2024-01-07] MEDS: 0.9 % Sodium Chloride 1,000 ML 150 ML IVCONT (23:41)
[2024-01-07] MEDS: Pantoprazole Sodium 40 MG/10 ML VIAL IVPUSH (23:45)
[2024-01-07 23:49] VITALS: BP 107/43; PULSE 97; RESP 17; TEMP 36.8; O2SAT 92
--- NOTE | 2024-01-07 23:56 | PC.NURSE ---
Hospitalist and charge notified of pts b/p No new orders rec'd at this time. Pt medicated per may. Plan of care ongoing.
[2024-01-08 02:39] LABS: Glucose, Whole Blood 128 mg/dL (60-115)
[2024-01-08 02:49] VITALS: BP 102/41; PULSE 81; RESP 12; TEMP 36.7; O2SAT 95
[2024-01-08 03:50] VITALS: BP 123/66; PULSE 76; RESP 16; TEMP 36.1; O2SAT 94
[2024-01-08 04:11] LABS: Amphetamine Screen Urine Not Detected (Not Detect); Barbiturates, Urine Not Detected (Not Detect); Benzodiazepines Screen Urine Not Detected (Not Detect); Buprenorphine Scr Positive (Not Detect); Cannabinoid Screen Urine POSITIVE (Not Detect); Cocaine Screen Urine Not Detected (Not Detect); Fentanyl, urine Not Detected (Not Detect); Methadone Screen, Urine Not Detected (Not Detect); Opiate Screen Urine Not Detected (Not Detect); Oxycodone Screen Urine Not Detected (Not Detect); Phencyclidine Screen Urine Not Detected (Not Detect)
[2024-01-08] MEDS: 0.9 % Sodium Chloride 1,000 ML 150 ML IVCONT ×3 (05:55→18:32)
[2024-01-08] MEDS: Pantoprazole Sodium 40 MG/10 ML VIAL IVPUSH ×2 (05:55→16:05)
[2024-01-08 06:33] LABS: MANUAL DIFF FLAG NO
[2024-01-08 07:03] LABS: Anion Gap 15 (12-20); Blood Urea Nitrogen 19 mg/dL (9-16); Calcium 8.5 mg/dL (8.4-10.2); Carbon Dioxide 24 mmol/L (22-29); Chloride 105 mmol/L (96-108); Creatinine Clr Calc Pharmacy 80.7; Estimated Glomerular Filt Rate > 60; Glucose Random 110 mg/dL (60-115); Potassium 4.7 mmol/L (3.3-5.1); Sodium 139 mmol/L (135-145)
[2024-01-08 07:05] VITALS: BP 126/60; PULSE 70; RESP 16; TEMP 37.1; O2SAT 96
[2024-01-08 07:08] LABS: Basophils Percent Auto 0.5 % (0-2); Eosinophils Absolute Auto 0.1 X10*3/uL (0.0-0.4); Eosinophils Percent Auto 1.1 % (0-4); Hematocrit 38.5 % (42.0-52.0); Hemoglobin 13.2 g/dl (14.0-18.0); Imm Gran Abs Auto 0.03 X10*3/uL (0.00-0.03); Imm Gran Pct Auto 0.4 % (0.0-0.4); Lymphocytes Absolute Auto 1.6 X10*3/uL (1.2-4.9); Lymphocytes Percent Auto 19.3 % (20-40); Mean Corpuscular HGB Conc 34.3 g/dl (31.0-36.0); Mean Corpuscular Hemoglobin 31.1 pg (27.0-33.0); Mean Corpuscular Volume 90.6 fL (80.0-98.0); Mean Platelet Volume 10.2 fL (9.4-12.4); Monocytes Absolute Auto 0.9 X10*3/uL (0.1-1.2); Monocytes Percent Auto 10.6 % (2-11); Neutrophils Absolute Auto 5.6 x10*3/uL (2.0-8.3); Neutrophils Percent Auto 68.1 % (45-73); Platelet Count 331 X10*3/uL (160-400); Red Blood Count 4.25 X10*6/uL (4.60-5.80); Red Cell Distribution Width 16.8 % (11.0-16.0); White Blood Count 8.2 X10*3/uL (4.8-10.8)
--- NOTE | 2024-01-08 11:07 | MHC.CM.PN ---
Addendum entered by Hanna Patel 01/08/24 15:31: PT REQUESTED HIS CLIENT SUCCESS SPECIALIST BE CONTACTED AND INFORMED OF HIS ADMISSION PT SIGNED A SE FOR HIS ADMISSION, PROJECTED DC, DIAGNOSES AND UTOX TO BE SHARED. INFORMATION WAS FAXED TO THE CHIEF CLIENT SUCCESS SPECIALIST AT [facility] AT [phone] PTS CLIENT SUCCESS SPECIALIST, RENE ELIZONDO, WAS OUT OF OFFICE, BUT WILL GET THE MESSAGE PER CLIENT ACCOUNT ASSISTANT Original Note: PT REPORTS HE LIVES WITH HIS GIRLFRIEND AND IS INDEPENDENT WITH CARE HE HAS NO HOME SERVICES AND NO DME PT WILL COMPLETE A HCP TODAY NAMING HIS GIRLFRIEND, LYDIA URENA PT DOES NOT HAVE A PCP DCP: HOME NO SERVICES VIA PRIVATE TRANSPORT
[2024-01-08 11:52] VITALS: BP 137/74; PULSE 81; RESP 20; TEMP 36.8; O2SAT 96
--- NOTE | 2024-01-08 11:57 | MHC.SHP ---
Pre-Procedural Eval Section A - 24 Hr Update-Section A only Date of Service: 01/08/24 The patient is an INPATIENT: Yes The patient has been examined within 24 hours of the surgical procedure. The History & Physical has been completed within 30 days and I have reviewed it.: Yes Section B - Complete if H&P > 30 days Chief Complaint: Acute Kidney Injury Allergies: Allergies Allergy/AdvReac Type Severity Reaction Status Date / Time No Known Allergies Allergy Verified 01/07/24 15:09 [No Known Allergies*] Plan I have reviewed the history and physical and performed a pertinent physical examination on my patient. No changes have occurred unless specified. Time Spent With Patient Time: Total time managing care of this patient today ____ minutes.
--- NOTE | 2024-01-08 12:52 | CONS_ITS ---
DATE OF SERVICE: 01/08/2024 REFERRING PHYSICIAN: Dr. Pak REASON FOR CONSULTATION: Hematemesis. HISTORY OF PRESENT ILLNESS: The patient is a pleasant 38-year-old man, who was admitted to the hospital after presenting to the emergency room with complaints of vomiting with some hematemesis as well as dark urine and generalized abdominal pain. The patient reports about 8 weeks of generalized abdominal discomfort, which is a twisting type of pain occurring across the abdomen with associated nausea and 3 episodes of vomiting over the past week. He describes vomiting a moderate amount of reddish bloody material with 1 episode the day of admission. He does have a history of gastroesophageal reflux disease and has been taking [id number] omeprazole for the last 2 weeks with some improvement in his symptoms. He has also noted some diaphoresis. He has not had any dysphagia or melena. He has had occasional hematochezia, which he attributes to some chronic constipation. He reports using marijuana by vaping on a daily basis. He denies any prior history of cannabinoid-related issues. In the emergency department, he was evaluated with laboratory studies documenting elevation of his renal function tests with a creatinine of 1.7 and a BUN of 18. Liver function tests were elevated on admission and CPK was markedly elevated at 3591. He has been treated with IV fluids with improvement in his laboratory studies. Imaging of the abdomen and pelvis with CT scanning is felt to be consistent with enteritis. No obstruction is seen. PAST MEDICAL HISTORY: 1. Substance abuse, in remission. 2. Neuropathy. 3. Depression. 4. Hepatitis C. CURRENT MEDICATIONS: His current medication list is reviewed in the chart. ALLERGIES: THERE ARE NONE REPORTED. FAMILY HISTORY: This is negative for GI malignancy. SOCIAL HISTORY: There is no current substance abuse except for marijuana by his report. REVIEW OF SYSTEMS: SKIN: No pruritus. HEENT: Negative. CARDIOPULMONARY: He denies shortness of breath or chest pain. GASTROINTESTINAL: As above. GENITOURINARY: Negative. NEUROPSYCHIATRIC: Negative. PHYSICAL EXAMINATION: GENERAL: Shows a pleasant male sitting in a chair. VITAL SIGNS: Stable. SKIN: Diaphoretic. HEENT: Shows no scleral icterus. NECK: Without lymphadenopathy or thyromegaly. LUNGS: Clear. HEART: Shows a regular rate and rhythm. S1, S2. No murmur. ABDOMEN: Soft without focal masses or tenderness. Bowel sounds are present. No organomegaly is noted. EXTREMITIES: Without edema. LABORATORY DATA: Reviewed as are imaging studies. IMPRESSION: Nausea and vomiting with hematemesis. Some of his nausea and vomiting could be related to his regular use of marijuana and I discussed this with him. I recommended he stop this and see if he feels better. There is a component of reflux and I would recommend increasing his omeprazole as an outpatient of 40 mg. I discussed endoscopy with the patient and his fiancee. They understand risks and benefits and agrees to proceed. This will be arranged for tomorrow for further evaluation. Thanks for asking me to see him. I will follow him in the hospital with you. MD MILES Juan/ANDREIA / [phone]
--- NOTE | 2024-01-08 13:22 | P.PNIM_ITS ---
Subjective Subjective Date of Service: 01/08/24 Interval History: No acute issues overnight. Mild nausea persistent Review of Systems Denies chest pain Denies shortness of breath Denies nausea vomiting diarrhea Denies fever chills Physical Exam 2 Vital Signs: Vital Signs: Last Vital Signs Temp 98.3 F 01/08/24 11:52 Pulse 81 01/08/24 11:52 Resp 20 01/08/24 11:52 BP 137/74 01/08/24 11:52 Pulse Ox 96 01/08/24 11:52 O2 Del Method Room Air 01/08/24 11:52 BMI result Body Mass Index 30.7 Const: Other: Awake alert no acute distress Resp: Other: Clear to auscultation bilaterally no rales rhonchi or wheezes Cardio: Other: No S4; positive S1-S2; no S3 murmurs rubs or gallops GI: Other: Soft nontender nondistended normoactive bowel sounds Extrem: Other: No edema bilaterally Objective Data Active Medications Acetaminophen (Acetaminophen 325 Mg Tablet) 975 mg PO Q6H PRN PRN Reason: Pain, Mild (Pain Scale 1-3), fever or headache Buprenorphine/Naloxone (Buprenorphine/Naloxone 8/2 Mg Film) 1 film SUBLINGUAL BID [facility] Gabapentin (Gabapentin 400 Mg Capsule) 800 mg PO TID [facility] Dextrose (D10) 250 mls @ 750 mls/hr IV Q15M PRN PRN Reason: per Hypoglycemia Standing Ord. Sodium Chloride (Ns) 1,000 mls @ 150 mls/hr IVCONT .Q6H40M [facility] Last Admin: 01/08/24 12:16 Dose: 150 mls/hr Documented By: CHARMAINE Ondansetron HCl (Ondansetron Hcl 4 Mg/2 Ml Vial) 4 mg IVPUSH Q8H PRN PRN Reason: Nausea and Vomiting Pantoprazole Sodium (Pantoprazole Sodium 40 Mg/10 Ml Vial) 40 mg IVPUSH BID@0630,1630 [facility] Last Admin: 01/08/24 05:55 Dose: 40 mg Documented By: LEN Sodium Chloride (0.9 % Sodium Chloride Flush 3 Ml Syringe) 3 ml IVFLUSH QSHIFT [facility] Last Admin: 01/08/24 07:01 Dose: Not Given Documented By: CHARMAINE Non-Admin Reason: IV Running Labs 01/08/24 05:37 01/08/24 05:37 Labs: Laboratory Results - last 24 hr 01/07/24 01/07/24 01/07/24 16:58 18:28 18:29 MCV 89.5 MCH 30.8 MCHC 34.5 RDW 16.6 H Plt Count 420 H MPV 9.8 Immature Gran % (Auto) 0.3 Neut % (Auto) 86.1 H Lymph % (Auto) 10.5 L [place] % (Auto) 2.8 Eos % (Auto) 0.0 Baso % (Auto) 0.3 Lymph # (Auto) 1.2 [place] # (Auto) 0.3 Eos # (Auto) 0.0 Baso # (Auto) 0.0 Abs Immat Gran (auto) 0.03 Absolute Neuts (auto) 9.9 H Absolute Nucleated RBC 0.000 Nucleated RBC % (auto) 0.0 Anion Gap 24 H Estim Creat Clear Calc 61.9 Estimated GFR 45 POC Glucose Random Glucose 80 Insulin Level Calcium 10.8 H D Total Bilirubin 2.0 H Direct Bilirubin 0.8 H AST 110 H ALT 256 H Alkaline Phosphatase 60 Total Creatine Kinase Total Protein 8.4 H Albumin 4.9 Lipase 20 Urine Color Dark Yellow Urine Appearance Clear Urine pH 6.0 Ur Specific [place] >= 1.030 H Urine Protein 30 (1+) H Urine Glucose (UA) Negative Urine Ketones 80 Urine Blood Negative Urine Nitrite Negative Ur Leukocyte Esterase Trace H Urine RBC 0-2 Urine WBC 0-5 Ur Squamous Epith Cells 0-2 Urine Bacteria None Seen Hyaline Casts 0-2 Stool Occult Blood Urine Opiates Screen Not Detected Ur Buprenorphine Scrn Positive H Ur Oxycodone Screen Not Detected Urine Methadone Screen Not Detected Urine Fentanyl Screen Not Detected Ur Barbiturates Screen Not Detected Ur Phencyclidine Scrn Not Detected Ur Amphetamines Screen Not Detected U Benzodiazepines Scrn Not Detected Urine Cocaine Screen Not Detected U Marijuana (THC) Screen POSITIVE H 01/07/24 01/07/24 01/07/24 18:36 19:19 19:21 MCV MCH MCHC RDW Plt Count MPV Immature Gran % (Auto) Neut % (Auto) Lymph % (Auto) [place] % (Auto) Eos % (Auto) Baso % (Auto) Lymph # (Auto) [place] # (Auto) Eos # (Auto) Baso # (Auto) Abs Immat Gran (auto) Absolute Neuts (auto) Absolute Nucleated RBC Nucleated RBC % (auto) Anion Gap 19 Estim Creat Clear Calc 65.3 Estimated GFR 48 POC Glucose 74 Random Glucose 70 Insulin Level < 2 L Calcium 10.7 H Total Bilirubin Direct Bilirubin AST ALT Alkaline Phosphatase Total Creatine Kinase 3591 H Total Protein Albumin Lipase Urine Color Urine Appearance Urine pH Ur Specific [place] Urine Protein Urine Glucose (UA) Urine Ketones Urine Blood Urine Nitrite Ur Leukocyte Esterase Urine RBC Urine WBC Ur Squamous Epith Cells Urine Bacteria Hyaline Casts Stool Occult Blood POSITIVE Urine Opiates Screen Ur Buprenorphine Scrn Ur Oxycodone Screen Urine Methadone Screen Urine Fentanyl Screen Ur Barbiturates Screen Ur Phencyclidine Scrn Ur Amphetamines Screen U Benzodiazepines Scrn Urine Cocaine Screen U Marijuana (THC) Screen 01/07/24 01/07/24 01/08/24 20:10 23:02 02:33 MCV MCH MCHC RDW Plt Count MPV Immature Gran % (Auto) Neut % (Auto) Lymph % (Auto) [place] % (Auto) Eos % (Auto) Baso % (Auto) Lymph # (Auto) [place] # (Auto) Eos # (Auto) Baso # (Auto) Abs Immat Gran (auto) Absolute Neuts (auto) Absolute Nucleated RBC Nucleated RBC % (auto) Anion Gap 14 Estim Creat Clear Calc 69.1 Estimated GFR 51 POC Glucose 72 128 H Random Glucose 116 H Insulin Level Calcium 9.0 D Total Bilirubin Direct Bilirubin AST ALT Alkaline Phosphatase Total Creatine Kinase Total Protein Albumin Lipase Urine Color Urine Appearance Urine pH Ur Specific [place] Urine Protein Urine Glucose (UA) Urine Ketones Urine Blood Urine Nitrite Ur Leukocyte Esterase Urine RBC Urine WBC Ur Squamous Epith Cells Urine Bacteria Hyaline Casts Stool Occult Blood Urine Opiates Screen Ur Buprenorphine Scrn Ur Oxycodone Screen Urine Methadone Screen Urine Fentanyl Screen Ur Barbiturates Screen Ur Phencyclidine Scrn Ur Amphetamines Screen U Benzodiazepines Scrn Urine Cocaine Screen U Marijuana (THC) Screen 01/08/24 01/08/24 03:49 05:37 MCV 90.6 MCH 31.1 MCHC 34.3 RDW 16.8 H Plt Count 331 MPV 10.2 Immature Gran % (Auto) 0.4 Neut % (Auto) 68.1 Lymph % (Auto) 19.3 L [place] % (Auto) 10.6 Eos % (Auto) 1.1 Baso % (Auto) 0.5 Lymph # (Auto) 1.6 [place] # (Auto) 0.9 Eos # (Auto) 0.1 Baso # (Auto) 0.0 Abs Immat Gran (auto) 0.03 Absolute Neuts (auto) 5.6 Absolute Nucleated RBC 0.000 Nucleated RBC % (auto) 0.0 Anion Gap 15 Estim Creat Clear Calc 80.7 Estimated GFR > 60 POC Glucose Random Glucose 110 Insulin Level Calcium 8.5 Total Bilirubin Direct Bilirubin AST ALT Alkaline Phosphatase Total Creatine Kinase 2468 H Total Protein Albumin Lipase Urine Color Urine Appearance Urine pH Ur Specific [place] Urine Protein Urine Glucose (UA) Urine Ketones Urine Blood Urine Nitrite Ur Leukocyte Esterase Urine RBC Urine WBC Ur Squamous Epith Cells Urine Bacteria Hyaline Casts Stool Occult Blood Urine Opiates Screen Not Detected Ur Buprenorphine Scrn Positive H Ur Oxycodone Screen Not Detected Urine Methadone Screen Not Detected Urine Fentanyl Screen Not Detected Ur Barbiturates Screen Not Detected Ur Phencyclidine Scrn Not Detected Ur Amphetamines Screen Not Detected U Benzodiazepines Scrn Not Detected Urine Cocaine Screen Not Detected U Marijuana (THC) Screen POSITIVE H Assessment and Plan (1) BIB (acute kidney injury): Status: Acute (2) Rhabdomyolysis: Status: Acute Plan Roscoe Cormier is a very pleasant 38 y/o man admitted with: Persistent nausea and vomiting 1.BIB w/Rhabdo -likely secondary to cannibus use -IV fluids -follow renals/divalents/CPKs -zofran 2. Hematemesis -IV PPI -EGD on am 3.OUD -suboxone films DVT prophylaxis: Early ambulation and SCDs. Code status: Full Patient will need ongoing hospitalization for IV fluids and specialty consultation including EGD Quality Stroke Does the patient have a stroke diagnosis?: No VTE Prior VTE?: No VTE Risk Level:: Medical - moderate - high VTE Device Contraindication: N/A - Device Ordered VTE Drug Contraindication: Treatment Not Indicated
[2024-01-08] MEDS: Gabapentin 400 MG CAPSULE 800 MG PO ×2 (14:15→20:41)
[2024-01-08] MEDS: Buprenorphine/Naloxone 8/2 mg FILM 1 FILM SUBLINGUAL ×2 (14:15→20:42)
[2024-01-08 14:54] VITALS: BP 162/87; PULSE 77; RESP 20; TEMP 36.9; O2SAT 96
[2024-01-08 19:15] VITALS: BP 136/64; PULSE 78; RESP 17; TEMP 36.2; O2SAT 94
--- NOTE | 2024-01-08 22:59 | MHC.PIE ---
p; pt reports iv infiltrated. pt now refusing new iv insertion and ivf. pt educated multiple times with pt agreeable to iv insertion and ivf later around 0400 i; dr romero notified e; will cont to monitor
[2024-01-09] VITALS (9 sets, daily range): BP systolic 119–174; BP diastolic 54–80; PULSE 61–88; RESP 14–18; TEMP 36.3–37.1; O2SAT 95–96
[2024-01-09] MEDS: 0.9 % Sodium Chloride 1,000 ML 150 ML IVCONT (04:02)
[2024-01-09] MEDS: Pantoprazole Sodium 40 MG/10 ML VIAL IVPUSH (06:08)
[2024-01-09 06:45] LABS: MANUAL DIFF FLAG NO
[2024-01-09 07:04] LABS: Basophils Percent Auto 0.5 % (0-2); Eosinophils Absolute Auto 0.2 X10*3/uL (0.0-0.4); Eosinophils Percent Auto 3.2 % (0-4); Hemoglobin 13.5 g/dl (14.0-18.0); Imm Gran Abs Auto 0.01 X10*3/uL (0.00-0.03); Imm Gran Pct Auto 0.2 % (0.0-0.4); Lymphocytes Absolute Auto 1.6 X10*3/uL (1.2-4.9); Lymphocytes Percent Auto 29.1 % (20-40); Mean Corpuscular HGB Conc 33.8 g/dl (31.0-36.0); Mean Corpuscular Hemoglobin 30.6 pg (27.0-33.0); Mean Corpuscular Volume 90.7 fL (80.0-98.0); Mean Platelet Volume 10.5 fL (9.4-12.4); Monocytes Absolute Auto 0.5 X10*3/uL (0.1-1.2); Monocytes Percent Auto 9.5 % (2-11); Neutrophils Absolute Auto 3.2 x10*3/uL (2.0-8.3); Neutrophils Percent Auto 57.5 % (45-73); Platelet Count 313 X10*3/uL (160-400); Red Blood Count 4.41 X10*6/uL (4.60-5.80); Red Cell Distribution Width 17.1 % (11.0-16.0); White Blood Count 5.6 X10*3/uL (4.8-10.8)
[2024-01-09 07:19] LABS: Alanine Aminotransferase 141 U/L (0-40); Albumin Level 3.4 g/dL (3.5-5.0); Alkaline Phosphatase 59 U/L (39-117); Anion Gap 12 (12-20); Aspartate Amino Transferase 52 U/L (5-37); Bilirubin Total 0.7 mg/dL (0.0-1.0); Blood Urea Nitrogen 12 mg/dL (9-16); Calcium 8.6 mg/dL (8.4-10.2); Carbon Dioxide 24 mmol/L (22-29); Chloride 108 mmol/L (96-108); Creatinine Clr Calc Pharmacy 119.7; Estimated Glomerular Filt Rate > 60; Glucose Fasting 130 mg/dL (60-99); Potassium 4.6 mmol/L (3.3-5.1); Sodium 139 mmol/L (135-145); Total Protein 5.8 g/dL (6.5-8.0)
[2024-01-09] MEDS: Gabapentin 400 MG CAPSULE 800 MG PO ×3 (08:15→20:17)
[2024-01-09] MEDS: Buprenorphine/Naloxone 8/2 mg FILM 1 FILM SUBLINGUAL ×2 (08:16→20:17)
--- NOTE | 2024-01-09 10:55 | HO.ANESPROP2 ---
HPI - Anesthesia Eval Consult details Narrative: 38 yo male patient for EGD PMFSH Active Problems Active Problems: All Active Problems Hyperkalemia (Acute) History of anabolic steroid use (Acute) Rhabdomyolysis (Acute) BIB (acute kidney injury) (Acute) Acute hyperkalemia (Acute) Acute kidney insufficiency (Acute) Acute dehydration (Acute) COVID-19 (Acute) ALT, AST, Creatinine kinase increased Past Medical History Medical History Opioid use disorder Cocaine use disorder MDD (major depressive disorder), recurrent episode, moderate Suicidal ideation Opiate abuse, episodic Hepatitis C Family History Family history of problems with anesthesia: No Surgical History History of Problems with Anesthesia: No Social History Social History Household Members: Significant Other Housing: House Housing Other:: sober living Do you presently have visiting nurse or other home services: No Alcohol intake: former Patient Tobacco Use Status: Former Tobacco user e-Cigarette/Vaping Use: Former Use Second Hand Smoke Exposure: No Substance Use Type: Marijuana service: No Sexual orientation: Straight/Heterosexual Meds Allergies Allergy/AdvReac Type Severity Reaction Status Date / Time No Known Allergies Allergy Verified 01/07/24 15:09 [No Known Allergies*] Active Medications: Current Medications Acetaminophen (Acetaminophen 325 Mg Tablet) 975 mg PO Q6H PRN PRN Reason: Pain, Mild (Pain Scale 1-3), fever or headache Buprenorphine/Naloxone (Buprenorphine/Naloxone 8/2 Mg Film) 1 film SUBLINGUAL BID [facility] Last Admin: 01/09/24 08:16 Dose: 1 film Gabapentin (Gabapentin 400 Mg Capsule) 800 mg PO TID [facility] Last Admin: 01/09/24 08:15 Dose: 800 mg Dextrose (D10) 250 mls @ 750 mls/hr IV Q15M PRN PRN Reason: per Hypoglycemia Standing Ord. Sodium Chloride (Ns) 1,000 mls @ 150 mls/hr IVCONT .Q6H40M [facility] Last Infusion: 01/09/24 10:29 Dose: 0 mls/hr Ondansetron HCl (Ondansetron Hcl 4 Mg/2 Ml Vial) 4 mg IVPUSH Q8H PRN PRN Reason: Nausea and Vomiting Pantoprazole Sodium (Pantoprazole Sodium 40 Mg/10 Ml Vial) 40 mg IVPUSH BID@0630,1630 [facility] Last Admin: 01/09/24 06:08 Dose: 40 mg Sodium Chloride (0.9 % Sodium Chloride Flush 3 Ml Syringe) 3 ml IVFLUSH QSHIFT [facility] Last Admin: 01/09/24 07:26 Dose: Not Given Home Medications ?Medication ?Instructions ?Recorded ?Confirmed ?Last Taken ?Type buprenorphine 300 mg/1.5 mL 300 mg subcut QMONTH 01/07/24 01/08/24 12/11/23 History solution,exten.rel.subcutaneous syringe (Sublocade) gabapentin 800 mg tablet 800 mg PO TID 01/07/24 01/07/24 01/07/24 History Exam Height,Weight and Vital Signs: Height 5 ft 7 in Weight 88.904 kg Last Vital Signs Temp 98.7 F 01/09/24 10:30 Pulse 69 01/09/24 10:30 Resp 15 01/09/24 10:30 BP 174/57 H 01/09/24 10:30 Pulse Ox 96 01/09/24 10:30 O2 Del Method Room Air 01/09/24 10:30 Pertinent Lab Results Pertinent Lab Results: Laboratory Tests 01/07/24 01/07/24 01/07/24 16:58 18:28 18:29 WBC 11.5 H RBC 5.32 Hgb 16.4 Hct 47.6 MCV 89.5 MCH 30.8 MCHC 34.5 RDW 16.6 H Plt Count 420 H MPV 9.8 Immature Gran % (Auto) 0.3 Neut % (Auto) 86.1 H Lymph % (Auto) 10.5 L [place] % (Auto) 2.8 Eos % (Auto) 0.0 Baso % (Auto) 0.3 Lymph # (Auto) 1.2 [place] # (Auto) 0.3 Eos # (Auto) 0.0 Baso # (Auto) 0.0 Abs Immat Gran (auto) 0.03 Absolute Neuts (auto) 9.9 H Absolute Nucleated RBC 0.000 Nucleated RBC % (auto) 0.0 Sodium 134 L Potassium 6.5 H* D Chloride 96 Carbon Dioxide 21 L Anion Gap 24 H BUN 18 H Creatinine 1.72 H Estim Creat Clear Calc 61.9 Estimated GFR 45 POC Glucose Random Glucose 80 Fasting Glucose Insulin Level Calcium 10.8 H D Total Bilirubin 2.0 H Direct Bilirubin 0.8 H AST 110 H ALT 256 H Alkaline Phosphatase 60 Total Creatine Kinase Total Protein 8.4 H Albumin 4.9 Lipase 20 Urine Color Dark Yellow Urine Appearance Clear Urine pH 6.0 Ur Specific [place] >= 1.030 H Urine Protein 30 (1+) H Urine Glucose (UA) Negative Urine Ketones 80 Urine Blood Negative Urine Nitrite Negative Ur Leukocyte Esterase Trace H Urine RBC 0-2 Urine WBC 0-5 Ur Squamous Epith Cells 0-2 Urine Bacteria None Seen Hyaline Casts 0-2 Stool Occult Blood Urine Opiates Screen Not Detected Ur Buprenorphine Scrn Positive H Ur Oxycodone Screen Not Detected Urine Methadone Screen Not Detected Urine Fentanyl Screen Not Detected Ur Barbiturates Screen Not Detected Ur Phencyclidine Scrn Not Detected Ur Amphetamines Screen Not Detected U Benzodiazepines Scrn Not Detected Urine Cocaine Screen Not Detected U Marijuana (THC) Screen POSITIVE H 01/07/24 01/07/24 01/07/24 18:36 19:19 19:21 WBC RBC Hgb Hct MCV MCH MCHC RDW Plt Count MPV Immature Gran % (Auto) Neut % (Auto) Lymph % (Auto) [place] % (Auto) Eos % (Auto) Baso % (Auto) Lymph # (Auto) [place] # (Auto) Eos # (Auto) Baso # (Auto) Abs Immat Gran (auto) Absolute Neuts (auto) Absolute Nucleated RBC Nucleated RBC % (auto) Sodium 134 L Potassium 5.3 H Chloride 99 Carbon Dioxide 21 L Anion Gap 19 BUN 17 H Creatinine 1.63 H Estim Creat Clear Calc 65.3 Estimated GFR 48 POC Glucose 74 Random Glucose 70 Fasting Glucose Insulin Level < 2 L Calcium 10.7 H Total Bilirubin Direct Bilirubin AST ALT Alkaline Phosphatase Total Creatine Kinase 3591 H Total Protein Albumin Lipase Urine Color Urine Appearance Urine pH Ur Specific [place] Urine Protein Urine Glucose (UA) Urine Ketones Urine Blood Urine Nitrite Ur Leukocyte Esterase Urine RBC Urine WBC Ur Squamous Epith Cells Urine Bacteria Hyaline Casts Stool Occult Blood POSITIVE Urine Opiates Screen Ur Buprenorphine Scrn Ur Oxycodone Screen Urine Methadone Screen Urine Fentanyl Screen Ur Barbiturates Screen Ur Phencyclidine Scrn Ur Amphetamines Screen U Benzodiazepines Scrn Urine Cocaine Screen U Marijuana (THC) Screen 01/07/24 01/07/24 01/08/24 20:10 23:02 02:33 WBC RBC Hgb Hct MCV MCH MCHC RDW Plt Count MPV Immature Gran % (Auto) Neut % (Auto) Lymph % (Auto) [place] % (Auto) Eos % (Auto) Baso % (Auto) Lymph # (Auto) [place] # (Auto) Eos # (Auto) Baso # (Auto) Abs Immat Gran (auto) Absolute Neuts (auto) Absolute Nucleated RBC Nucleated RBC % (auto) Sodium 135 Potassium 4.9 Chloride 100 Carbon Dioxide 26 Anion Gap 14 BUN 17 H Creatinine 1.54 H Estim Creat Clear Calc 69.1 Estimated GFR 51 POC Glucose 72 128 H Random Glucose 116 H Fasting Glucose Insulin Level Calcium 9.0 D Total Bilirubin Direct Bilirubin AST ALT Alkaline Phosphatase Total Creatine Kinase Total Protein Albumin Lipase Urine Color Urine Appearance Urine pH Ur Specific [place] Urine Protein Urine Glucose (UA) Urine Ketones Urine Blood Urine Nitrite Ur Leukocyte Esterase Urine RBC Urine WBC Ur Squamous Epith Cells Urine Bacteria Hyaline Casts Stool Occult Blood Urine Opiates Screen Ur Buprenorphine Scrn Ur Oxycodone Screen Urine Methadone Screen Urine Fentanyl Screen Ur Barbiturates Screen Ur Phencyclidine Scrn Ur Amphetamines Screen U Benzodiazepines Scrn Urine Cocaine Screen U Marijuana (THC) Screen 01/08/24 01/08/24 01/09/24 03:49 05:37 05:41 WBC 8.2 5.6 RBC 4.25 L D 4.41 L Hgb 13.2 L 13.5 L Hct 38.5 L 40.0 L MCV 90.6 90.7 MCH 31.1 30.6 MCHC 34.3 33.8 RDW 16.8 H 17.1 H Plt Count 331 313 MPV 10.2 10.5 Immature Gran % (Auto) 0.4 0.2 Neut % (Auto) 68.1 57.5 Lymph % (Auto) 19.3 L 29.1 [place] % (Auto) 10.6 9.5 Eos % (Auto) 1.1 3.2 Baso % (Auto) 0.5 0.5 Lymph # (Auto) 1.6 1.6 [place] # (Auto) 0.9 0.5 Eos # (Auto) 0.1 0.2 Baso # (Auto) 0.0 0.0 Abs Immat Gran (auto) 0.03 0.01 Absolute Neuts (auto) 5.6 3.2 Absolute Nucleated RBC 0.000 0.000 Nucleated RBC % (auto) 0.0 0.0 Sodium 139 139 Potassium 4.7 4.6 Chloride 105 108 Carbon Dioxide 24 24 Anion Gap 15 12 BUN 19 H 12 Creatinine 1.32 0.89 Estim Creat Clear Calc 80.7 119.7 Estimated GFR > 60 > 60 POC Glucose Random Glucose 110 Fasting Glucose 130 H Insulin Level Calcium 8.5 8.6 Total Bilirubin 0.7 Direct Bilirubin AST 52 H ALT 141 H Alkaline Phosphatase 59 Total Creatine Kinase 2468 H 1132 H Total Protein 5.8 L Albumin 3.4 L Lipase Urine Color Urine Appearance Urine pH Ur Specific [place] Urine Protein Urine Glucose (UA) Urine Ketones Urine Blood Urine Nitrite Ur Leukocyte Esterase Urine RBC Urine WBC Ur Squamous Epith Cells Urine Bacteria Hyaline Casts Stool Occult Blood Urine Opiates Screen Not Detected Ur Buprenorphine Scrn Positive H Ur Oxycodone Screen Not Detected Urine Methadone Screen Not Detected Urine Fentanyl Screen Not Detected Ur Barbiturates Screen Not Detected Ur Phencyclidine Scrn Not Detected Ur Amphetamines Screen Not Detected U Benzodiazepines Scrn Not Detected Urine Cocaine Screen Not Detected U Marijuana (THC) Screen POSITIVE H Airway Mallampati Class: II TM Dist: >3cm Neck ROM: Full Loose/Missing/Broken Teeth: No (Denies broken, loose, missing teeth) Heart: RRR Lungs: CTAB Assessment and Plan Assessment Anesthesia Assessment: Anesthesia Plan Discussed and Chart Reviewed Final Anesthetic Review Family History of Problems with Anesthesia: No History of Problems with Anesthesia: No NPO: Yes ASA Class: IV Final Preanesthetic Review: No Changes in Pt Med Stat, Meds/Allgs Chart Reviewed, Consent Obtained/Reviewed and Anes Risks/Benef Reviewed Patient Risk: High Procedure Risk: Low Assessment/Block/Sedation in SS: Assess/Block/Sedation-SS Anesthetic Plan Anesthetic Plan: TIVA Disposition: Standard PACU
--- NOTE | 2024-01-09 11:33 | PM.OP ---
Brief Operative Note Date of Service: 01/09/24 Pre-op diagnosis: hematemesis Post-op diagnosis: same Procedure: EGD Surgeon: Sea Cheung MD Anesthesia: MAC Was an Gutter Mouth Cutter used for this Procedure?: No Estimated blood loss (mL): 2 Pathology: other Condition: stable Disposition: PACU
--- NOTE | 2024-01-09 11:34 | PM.EVENT ---
Event Note Date of Service: 01/09/24 Event Note: GI EGD note dictated Erosive esophagitis and gastritis without bleeding biopsies taken advance diet omeprazole 40 mg daily fu bx results repeat egd in 10-12 weeks to f/u erosive esophagitis Time Spent With Patient Time: Total time managing care of this patient today ____ minutes.
--- NOTE | 2024-01-09 11:45 | OP_ITS ---
DATE OF SERVICE: 01/09/2024 SURGEON: Sea Cheung MD INDICATIONS: Hematemesis. PREOPERATIVE DIAGNOSIS: POSTOPERATIVE DIAGNOSIS: PROCEDURE PERFORMED: Upper endoscopy with biopsy. ESTIMATED BLOOD LOSS: COMPLICATIONS: ANESTHESIA: Monitored anesthesia care. ASSISTANTS: SPECIMENS: DESCRIPTION OF PROCEDURE: A history and physical were performed. The risks and benefits of the procedure were explained to the patient, and informed consent was obtained. The patient was placed in left lateral decubitus position. The Olympus video gastroscope was introduced into the esophagus, stomach, and duodenum. Examination was performed, and the scope was removed. He tolerated the procedure well and was taken to recovery in stable condition. FINDINGS: 1. Esophagus: There were erosions in the body and distal esophagus, largest of these measured approximately 10 mm. There was no active bleeding. 2. Stomach: The stomach showed focal erythema in the body and fundus consistent with gastritis. Antral biopsies were obtained to rule out H pylori. 3. Duodenum, the bulb and 2nd portion were normal. IMPRESSION: 1. Erosive esophagitis. 2. Gastritis. RECOMMENDATION: 1. Follow up the biopsy results. 2. Omeprazole 40 mg daily. 3. Repeat endoscopy in 8 to 12 weeks to document healing of erosive esophagitis and assess for any evidence of Aguiar esophagus pending these biopsy results. MD MILES Juan/ANDREIA / [id number] MTDD
[2024-01-09] MEDS: Lactated Ringers 1,000 ML 100 ML IVCONT ×2 (12:57→20:17)
--- NOTE | 2024-01-09 13:41 | P.PNIM_ITS ---
Subjective Subjective Date of Service: 01/09/24 Interval History: No acute issues overnight. EGD this a.m. without issue Review of Systems Denies chest pain Denies shortness of breath Denies nausea vomiting diarrhea Denies fever chills Physical Exam 2 Vital Signs: Vital Signs: Last Vital Signs Temp 97.7 F 01/09/24 12:30 Pulse 61 01/09/24 12:30 Resp 16 01/09/24 12:30 BP 141/64 H 01/09/24 12:30 Pulse Ox 96 01/09/24 12:30 O2 Del Method Room Air 01/09/24 12:30 BMI result Body Mass Index 30.7 Const: Other: Awake alert no acute distress Resp: Other: Clear to auscultation bilaterally no rales rhonchi or wheezes Cardio: Other: No S4; positive S1-S2; no S3 murmurs rubs or gallops GI: Other: Soft nontender nondistended normoactive bowel sounds Extrem: Other: No edema bilaterally Objective Data Active Medications Acetaminophen (Acetaminophen 325 Mg Tablet) 975 mg PO Q6H PRN PRN Reason: Pain, Mild (Pain Scale 1-3), fever or headache Buprenorphine/Naloxone (Buprenorphine/Naloxone 8/2 Mg Film) 1 film SUBLINGUAL BID [facility] Last Admin: 01/09/24 08:16 Dose: 1 film Documented By: CHARMAINE Gabapentin (Gabapentin 400 Mg Capsule) 800 mg PO TID [facility] Last Admin: 01/09/24 08:15 Dose: 800 mg Documented By: CHARMAINE Dextrose (D10) 250 mls @ 750 mls/hr IV Q15M PRN PRN Reason: per Hypoglycemia Standing Ord. Sodium Chloride (Ns) 1,000 mls @ 150 mls/hr IVCONT .Q6H40M [facility] Last Infusion: 01/09/24 13:06 Dose: Infused Documented By: CHARMAINE Lactated Ringer's (Lr) 1,000 mls @ 100 mls/hr IVCONT .Q10H [facility] Last Admin: 01/09/24 12:57 Dose: 100 mls/hr Documented By: CHARMAINE Omeprazole (Omeprazole 40 Mg Capsule.Dr) 40 mg PO DAILY@0630 [facility] Ondansetron HCl (Ondansetron Hcl 4 Mg/2 Ml Vial) 4 mg IVPUSH Q8H PRN PRN Reason: Nausea and Vomiting Ondansetron HCl (Ondansetron Hcl 4 Mg/2 Ml Vial) 4 mg IVPUSH ONCE PRN PRN Reason: Nausea and Vomiting Stop: 01/09/24 18:02 Sodium Chloride (0.9 % Sodium Chloride Flush 3 Ml Syringe) 3 ml IVFLUSH QSHIFT [facility] Last Admin: 01/09/24 07:26 Dose: Not Given Documented By: CHARMAINE Non-Admin Reason: IV Running Labs 01/09/24 05:41 01/09/24 05:41 Labs: Laboratory Results - last 24 hr 01/09/24 05:41 MCV 90.7 MCH 30.6 MCHC 33.8 RDW 17.1 H Plt Count 313 MPV 10.5 Immature Gran % (Auto) 0.2 Neut % (Auto) 57.5 Lymph % (Auto) 29.1 [place] % (Auto) 9.5 Eos % (Auto) 3.2 Baso % (Auto) 0.5 Lymph # (Auto) 1.6 [place] # (Auto) 0.5 Eos # (Auto) 0.2 Baso # (Auto) 0.0 Abs Immat Gran (auto) 0.01 Absolute Neuts (auto) 3.2 Absolute Nucleated RBC 0.000 Nucleated RBC % (auto) 0.0 Anion Gap 12 Estim Creat Clear Calc 119.7 Estimated GFR > 60 Fasting Glucose 130 H Calcium 8.6 Total Bilirubin 0.7 AST 52 H ALT 141 H Alkaline Phosphatase 59 Total Creatine Kinase 1132 H Total Protein 5.8 L Albumin 3.4 L Assessment and Plan (1) Rhabdomyolysis: Status: Acute (2) BIB (acute kidney injury): Status: Acute Plan Roscoe Cormier is a very pleasant 38 y/o man admitted with: Persistent nausea and vomiting 1.BIB w/Rhabdo -likely secondary to anabolic steroids; CKs trending downward -IV fluids -follow renals/divalents/CPKs -zofran p.r.n.; vomiting improved 2. Hematemesis... None since admission. Question Georgina-Chamorro -EGD demonstrated erosive esophagitis -omeprazole 40 mg daily -outpatient follow up 3.OUD -suboxone films DVT prophylaxis: Early ambulation and SCDs. Code status: Full Patient will need ongoing hospitalization for IV fluids and documentation and normalization of CPK level Quality Stroke Does the patient have a stroke diagnosis?: No VTE Prior VTE?: No VTE Risk Level:: Medical - moderate - high VTE Device Contraindication: N/A - Device Ordered VTE Drug Contraindication: Treatment Not Indicated
--- NOTE | 2024-01-09 15:24 | MHC.CM.PN ---
PT NOT YET MEDICALLY CLEARED TO DC DCP REMAINS HOME WITH NO SERVICES VIA PRIVATE TRANSPORT
[2024-01-10 03:06] VITALS: BP 152/86; PULSE 71; RESP 16; TEMP 36; O2SAT 98
[2024-01-10] MEDS: Lactated Ringers 1,000 ML 100 ML IVCONT ×2 (06:04→15:52)
[2024-01-10] MEDS: Omeprazole 40 MG CAPSULE.DR PO (06:04)
[2024-01-10 06:35] LABS: MANUAL DIFF FLAG NO
[2024-01-10 06:55] LABS: Basophils Percent Auto 0.7 % (0-2); Eosinophils Absolute Auto 0.2 X10*3/uL (0.0-0.4); Eosinophils Percent Auto 2.8 % (0-4); Hematocrit 41.2 % (42.0-52.0); Hemoglobin 13.7 g/dl (14.0-18.0); Imm Gran Abs Auto 0.01 X10*3/uL (0.00-0.03); Imm Gran Pct Auto 0.2 % (0.0-0.4); Lymphocytes Absolute Auto 1.9 X10*3/uL (1.2-4.9); Lymphocytes Percent Auto 35.3 % (20-40); Mean Corpuscular HGB Conc 33.3 g/dl (31.0-36.0); Mean Corpuscular Hemoglobin 30.6 pg (27.0-33.0); Mean Platelet Volume 10.4 fL (9.4-12.4); Monocytes Absolute Auto 0.5 X10*3/uL (0.1-1.2); Monocytes Percent Auto 9.9 % (2-11); Neutrophils Absolute Auto 2.8 x10*3/uL (2.0-8.3); Neutrophils Percent Auto 51.1 % (45-73); Platelet Count 317 X10*3/uL (160-400); Red Blood Count 4.48 X10*6/uL (4.60-5.80); Red Cell Distribution Width 16.9 % (11.0-16.0); White Blood Count 5.4 X10*3/uL (4.8-10.8)
[2024-01-10 07:09] LABS: Alanine Aminotransferase 140 U/L (0-40); Albumin Level 3.5 g/dL (3.5-5.0); Anion Gap 13 (12-20); Aspartate Amino Transferase 46 U/L (5-37); Bilirubin Total 0.6 mg/dL (0.0-1.0); Blood Urea Nitrogen 10 mg/dL (9-16); Calcium 8.1 mg/dL (8.4-10.2); Carbon Dioxide 27 mmol/L (22-29); Chloride 105 mmol/L (96-108); Creatinine Clr Calc Pharmacy 113.3; Estimated Glomerular Filt Rate > 60; Glucose Fasting 100 mg/dL (60-99); Potassium 4.8 mmol/L (3.3-5.1); Sodium 140 mmol/L (135-145); Total Protein 5.9 g/dL (6.5-8.0)
[2024-01-10 07:28] LABS: Alkaline Phosphatase 52 U/L (39-117)
[2024-01-10 07:36] VITALS: BP 139/67; PULSE 66; RESP 16; TEMP 36; O2SAT 96
[2024-01-10] MEDS: Gabapentin 400 MG CAPSULE 800 MG PO ×3 (08:45→21:19)
--- NOTE | 2024-01-10 11:41 | HO.POSTANES ---
Post Anesthesia Evaluation Post Anesthesia Evaluation Date of Service: 01/10/24 Vital Signs: Vital Signs Temp Pulse Resp BP Pulse Ox O2 Del Method 01/10/24 07:36 96.8 F 66 16 139/67 96 Room Air 01/10/24 03:06 96.8 F 71 16 152/86 H 98 Room Air Anesthesia: TIVA Mental Status: Awake Pain Control: Satisfactory Nausea/Vomiting: None Hydration: Adequate Anesthesia-Related Issues: No Anes. Related Issues
[2024-01-10 12:01] VITALS: O2SAT 96
--- NOTE | 2024-01-10 12:27 | P.PNIM_ITS ---
Subjective Subjective Date of Service: 01/10/24 Interval History: Being followed for acute kidney injury and hematemesis Patient offers no acute complaints but concerned about discharge since feels his CPK should be within normal range prior to discharge, no headache, no dizziness, tolerating diet receiving IV fluids, no recurrent hematemesis. Review of Systems All other symptoms reviewed and are negative. Physical Exam 2 Vital Signs: Vital Signs: Last Vital Signs Temp 96.8 F 01/10/24 07:36 Pulse 66 01/10/24 07:36 Resp 16 01/10/24 07:36 BP 139/67 01/10/24 07:36 Pulse Ox 96 01/10/24 12:01 O2 Del Method Room Air 01/10/24 12:01 BMI result Body Mass Index 30.7 Const: Other: General awake alert x3, in no acute distress. Neck no JVD. CVS regular rate rhythm, Respiratory lungs clear to auscultation, no respiratory distress, no wheeze, no rhonchi. Gastrointestinal abdomen soft, non tender, bowel sounds audible. Extremities no edema. Neuro non focal Skin no rash Objective Data Active Medications Acetaminophen (Acetaminophen 325 Mg Tablet) 975 mg PO Q6H PRN PRN Reason: Pain, Mild (Pain Scale 1-3), fever or headache Buprenorphine/Naloxone (Buprenorphine/Naloxone 8/2 Mg Film) 1 film SUBLINGUAL BID ON [facility] OF [facility] Last Admin: 01/10/24 08:46 Dose: Not Given Documented By: KAYLA Non-Admin Reason: Patient Refused Gabapentin (Gabapentin 400 Mg Capsule) 800 mg PO TID ON [facility] OF [facility] Last Admin: 01/10/24 08:45 Dose: 800 mg Documented By: KAYLA Dextrose (D10) 250 mls @ 750 mls/hr IV Q15M PRN PRN Reason: per Hypoglycemia Standing Ord. Lactated Ringer's (Lr) 1,000 mls @ 100 mls/hr IVCONT .Q10H ON [facility] OF [facility] Last Admin: 01/10/24 06:04 Dose: 100 mls/hr Documented By: PHUONG Omeprazole (Omeprazole 40 Mg Capsule.) 40 mg PO DAILY@0630 ON [facility] OF [facility] Last Admin: 01/10/24 06:04 Dose: 40 mg Documented By: PHUONG Ondansetron HCl (Ondansetron Hcl 4 Mg/2 Ml Vial) 4 mg IVPUSH Q8H PRN PRN Reason: Nausea and Vomiting Sodium Chloride (0.9 % Sodium Chloride Flush 3 Ml Syringe) 3 ml IVFLUSH QSHIFT [facility] Last Admin: 01/10/24 08:46 Dose: Not Given Documented By: KAYLA Non-Admin Reason: IV Running Labs 01/10/24 05:30 01/10/24 05:30 Labs: Laboratory Results - last 24 hr 01/10/24 05:30 MCV 92.0 MCH 30.6 MCHC 33.3 RDW 16.9 H Plt Count 317 MPV 10.4 Immature Gran % (Auto) 0.2 Neut % (Auto) 51.1 Lymph % (Auto) 35.3 [place] % (Auto) 9.9 Eos % (Auto) 2.8 Baso % (Auto) 0.7 Lymph # (Auto) 1.9 [place] # (Auto) 0.5 Eos # (Auto) 0.2 Baso # (Auto) 0.0 Abs Immat Gran (auto) 0.01 Absolute Neuts (auto) 2.8 Absolute Nucleated RBC 0.000 Nucleated RBC % (auto) 0.0 Anion Gap 13 Estim Creat Clear Calc 113.3 Estimated GFR > 60 Fasting Glucose 100 H Calcium 8.1 L Total Bilirubin 0.6 AST 46 H ALT 140 H Alkaline Phosphatase 52 Total Creatine Kinase 595 H Total Protein 5.9 L Albumin 3.5 Assessment and Plan (1) Hyperkalemia: Status: Acute (2) History of anabolic steroid use: Status: Acute (3) Rhabdomyolysis: Status: Acute (4) BIB (acute kidney injury): Status: Acute (5) Acute hyperkalemia: Status: Acute Plan Roscoe Cormier is a very pleasant 38 y/o man admitted with: Persistent nausea and vomiting 1.BIB w/Rhabdo -likely secondary to anabolic steroids, renal function normalized CPK trended down to 595 from 2468 on admission Continue IV fluids follow renal function and CPK 2. Hematemesis. No recurrent episode noted -stable H&H -EGD demonstrated erosive esophagitis and gastritis without bleeding , biopsies taken report pending -continue omeprazole 40 mg daily -outpatient follow up with GI and 10-12 weeks to follow-up on erosive esophagitis 3.OUD -on suboxone films, resume buprenorphine upon discharge 4. Hyperkalemia resolved DVT prophylaxis: Early ambulation and SCDs. Code status: Full Patient will need ongoing hospitalization for IV fluids and documentation and normalization of CPK level Quality Stroke Does the patient have a stroke diagnosis?: No VTE Prior VTE?: No VTE Risk Level:: Medical - moderate - high VTE Device Contraindication: N/A - Device Ordered VTE Drug Contraindication: Treatment Not Indicated
[2024-01-10 15:42] VITALS: BP 131/62; PULSE 65; RESP 16; TEMP 36.4; O2SAT 96
[2024-01-10 19:45] VITALS: BP 135/70; PULSE 61; RESP 16; TEMP 36.3; O2SAT 96
[2024-01-11] MEDS: Lactated Ringers 1,000 ML 100 ML IVCONT (00:52)
[2024-01-11] MEDS: Omeprazole 40 MG CAPSULE.DR PO (06:17)
[2024-01-11] MEDS: ondansetron HCL 4 MG/2 ML VIAL IVPUSH (06:17)
[2024-01-11 06:51] LABS: Alanine Aminotransferase 148 U/L (0-40); Albumin Level 3.8 g/dL (3.5-5.0); Alkaline Phosphatase 51 U/L (39-117); Aspartate Amino Transferase 45 U/L (5-37); Bilirubin Direct 0.4 mg/dL (0.0-0.5); Bilirubin Total 0.7 mg/dL (0.0-1.0); Total Protein 6.2 g/dL (6.5-8.0)
[2024-01-11] MEDS: Gabapentin 400 MG CAPSULE 800 MG PO ×2 (08:46→14:38)
[2024-01-11 09:00] VITALS: BP 168/85
--- NOTE | 2024-01-11 10:30 | PM.DS ---
DS: Providers Provider Date of Service: 01/11/24 Date of admission: 01/07/24 23:21 Date of discharge: 01/11/24 Primary care physician: None Physician Consults: 01/07/24 23:24 Consult to Gastroenterology Routine Consulting Provider: Ten Chamorro Reason for consultation: Bloody vomiting episode Has provider been notified: Yes DS: Diagnosis Discharge Diagnosis (1) Hyperkalemia: Status: Acute (2) History of anabolic steroid use: Status: Acute (3) Rhabdomyolysis: Status: Acute (4) BIB (acute kidney injury): Status: Acute (5) Acute hyperkalemia: Status: Acute DS: Summary Hospital Course Hospital Course: History of presenting illness: Date of Service: 01/07/24 Attending physician on admission: Chago Garrett Chief Complaint: Vomiting Roscoe Cormier is a very pleasant 38 years old man with past medical history significant for prior episode of rhabdomyolysis, opioid us disorder on buprenorphine injection every 21 days, and neuropathy on gabapentin presents to the emergency department complaining of multiple episodes vomiting associated with diaphoresis and dark urine. He had an episode of bright red bloody vomiting. He denies associated abdominal pain, bloody urine, fever or diarrhea. He reported constipation. He has been anabolic steroids for the last week. He has been using a started on and off for the last 3 years. In the ED, he was found to have stable vital signs. Blood workup showed mild leukocytosis of 11.5. Hemoglobin 16.4 and platelets 420. Initially his potassium was elevated at 6.5 the sample was hemolyzed (repeat K level was 5.3 and now normalized. There is mild hyponatremia that normalized. Creatinine was found to be elevated at 1.72. CO2 was initially 21 and now 26. Urinalysis showed elevated specific gravity, trace proteinuria and trace leukocyte esterase, RBCs 0-2 and negative blood. Urinalysis positive for marijuana and buprenorphine. ECG showed peaked T-waves only in V2. ED tx: NS 2 L bolus, bicarb 50 mEq IV, insulin R 5 units IV and Reglan 10 mg IV Hospital course: Roscoe Cormier 38 y/o man admitted with Persistent nausea and vomiting and diagnosed to have BIB w/Rhabdomyolysis likely secondary to anabolic steroids,marijuana, treated with IV fluids, renal function normalized, and CPK trended down to 306 from 2468 on admission, recommended to avoid anabolic steroids and excessive exercise, recommend to drink plenty of fluids and outpatient follow-up with primary care physician if noted to have persistent recurrent episodes of excessive sweating and intermittent hypertension to rule out pheochromocytoma, in regard to Hematemesis, he had no recurrent episodes, H&H remained stable, he underwent EGD that demonstrated erosive esophagitis and gastritis without bleeding , biopsies taken report pending, recommend to continue omeprazole 40 mg daily and outpatient follow up with GI in 10-12 weeks to follow-up on erosive esophagitis. In regard to opiate use disorder recommend to continue buprenorphine. Hyperkalemia likely due to BIB resolved. Time Attestation Discharge Coordination Time (in mins): 38 Quality: Safe Use of Opioids Does Pt have an Active Cancer Diagnosis on the Problem List?: No Quality: Stroke Does the patient have a stroke diagnosis?: No Physical Exam Vital Signs: Vital Signs: Last Vital Signs Temp 97.3 F 01/10/24 19:45 Pulse 61 01/10/24 19:45 Resp 16 01/10/24 19:45 BP 168/85 H 01/11/24 09:00 Pulse Ox 96 01/10/24 19:45 O2 Del Method Room Air 01/10/24 19:45 BMI result Body Mass Index 30.7 Const: Other: General awake alert x3, in no acute distress. Neck no JVD. CVS regular rate rhythm, Respiratory lungs clear to auscultation, no respiratory distress, no wheeze, no rhonchi. Gastrointestinal abdomen soft, non tender, bowel sounds audible. Extremities no edema. Neuro non focal Skin no rash DS: Data Data Completed and Pending Pending studies at discharge: Pending at discharge 01/09/24 11:22 Surgical [PTH] Routine Labs on day of discharge: Laboratory Results - last 24 hr 01/11/24 05:16 Hold Purple Top SEE NOTE Total Bilirubin 0.7 Direct Bilirubin 0.4 AST 45 H ALT 148 H Alkaline Phosphatase 51 Total Creatine Kinase 306 H Total Protein 6.2 L Albumin 3.8 Discharge Plan Discharge Anticipated Discharge Date/Time: 01/11/24 10:24 Patient Disposition: Home, Self-Care Discharge Diagnosis: Acute kidney injury Referrals: Physician,None [Primary Care Provider] - 1 Week Discharge Medications: New ondansetron 4 mg tablet,disintegrating 4 mg PO Q8H PRN (Reason: nausea and vomiting) Qty: 30 0RF omeprazole 40 mg Capsule,Delayed Release(Dr/Ec) 40 mg PO DAILY@0630 Qty: 90 0RF Continued gabapentin 800 mg tablet 800 mg PO TID Sublocade 300 mg/1.5 mL Solution, Extended Rel Syringe 300 mg SUBCUT QMONTH Discharge Orders: Discharge Order (Routine); Ordered 01/11/24 Ordered By: Gisela Mckenzie Diet: Advance to usual diet Activity on Discharge: As tolerated Stand Alone Forms: Patient Portal Discharge page, Work/School Release Print Language: [place] Care Plan Goals: Take Prilosec 40 mg daily Zofran 4 mg as needed for nausea Reduce dose of gabapentin to 600 mg t.i.d. Drink plenty of fluids Health Concerns: Continue all home medications as before Plan of Treatment: Outpatient follow-up with Dr. Cheung in 10-12 weeks for follow-up on erosive esophagitis Follow-up with primary care physician call for appointment in 1-2 weeks Assessment: As above Discharge Date/Time: 01/11/24 16:30
--- NOTE | 2024-01-11 11:15 | MHC.CM.PN ---
PT DCD HOME SELF CARE
== END 2024-01-11 16:30 | disposition home or self-care (01) | DRG 242 ==
LOC: HO.ED 21:36 → HO.EDOVER 23:36 → HO.S3 23:57
PROVIDERS: Hospitalist; Internal Medicine Gastroenterology; Admitting Provider Internal Medicine; Emergency Provider Emergency Medicine Emergency Medical Services; Visit Provider Hospitalist
PROC: 0DJ08ZZ Inspection of Upper Intestinal Tract, Via Natural or Artificial Opening Endoscopic (ICD-10-PCS; CPT 43235; principal; 2024-01-09 13:20)
DX: K22.11 Ulcer of esophagus with bleeding (principal); N17.9 Acute kidney failure, unspecified; K29.71 Gastritis, unspecified, with bleeding; M62.82 Rhabdomyolysis; R11.2 Nausea with vomiting, unspecified; F12.90 Cannabis use, unspecified, uncomplicated; E86.0 Dehydration; F11.20 Opioid dependence, uncomplicated; K59.00 Constipation, unspecified; E87.5 Hyperkalemia; Z87.891 Personal history of nicotine dependence; Z79.899 Other long term (current) drug therapy
CPT/HCPCS: 36415; 80048; 80053; 80076; 80307; 81001; 82272; 82550; 82947; 83525; 83690; 85025; 88305; 88313; 88342; 93005; 99285; J0613; J2003; J2405; J2470; J2704; J2765; J7120

== ENCOUNTER → 2024-01-07 18:53 | Outpatient (BNV) | payer MEDICAID, SELFPAY | PROVIDERS: Admitting Provider Internal Medicine; Emergency Provider Emergency Medicine Emergency Medical Services; Visit Provider Internal Medicine | DX: R94.31 Abnormal electrocardiogram [ECG] [EKG] (principal); R00.0 Tachycardia, unspecified | CPT/HCPCS: 93010 ==

== ENCOUNTER → 2024-01-07 23:21 | Outpatient (BNV) | payer MEDICAID, SELFPAY | PROVIDERS: Admitting Provider Internal Medicine; Emergency Provider Emergency Medicine Emergency Medical Services; Visit Provider Internal Medicine | DX: E87.5 Hyperkalemia (principal); Z92.241 Personal history of systemic steroid therapy; M62.82 Rhabdomyolysis; N17.9 Acute kidney failure, unspecified | CPT/HCPCS: 99223; 99232; 99239 ==

== ENCOUNTER 2024-01-22 15:24 | Outpatient (REF) | payer MEDICAID, SELFPAY ==
[2024-01-22 18:41] LABS: Anion Gap 17 (12-20); Blood Urea Nitrogen 12 mg/dL (9-16); Calcium 9.6 mg/dL (8.4-10.2); Carbon Dioxide 25 mmol/L (22-29); Chloride 100 mmol/L (96-108); Estimated Glomerular Filt Rate > 60; Glucose Random 91 mg/dL (60-115); Potassium 4.6 mmol/L (3.3-5.1); Sodium 137 mmol/L (135-145)
[2024-01-22 19:04] LABS: TSH reflex Free T4 1.37 uIU/mL (0.32-4.0)
[2024-01-26 19:54] LABS: CK-BB None Detected (None Detected); CK-MB 0 % (<5); CK-MM 96 % (95-100); Creatine Kinase Isoenzyme Itrp MACRO CK TYPE 1; Creatine Kinase,Total,Serum 688 U/L (44-196)
== END 2024-01-22 15:25 | disposition home or self-care (01) ==
LOC: HO.HHCL 15:24
PROVIDERS: Visit Provider General Practice
DX: M62.82 Rhabdomyolysis (principal); F41.9 Anxiety disorder, unspecified; N17.9 Acute kidney failure, unspecified
CPT/HCPCS: 36415; 80048; 82552; 83835; 84443

== ENCOUNTER 2024-03-23 09:24 | Day surgery (SDC) | payer MEDICAID, SELFPAY ==
--- OUTSIDE RECORDS SUMMARY | 2024-03-11 12:18 | XMS_ITS ---
Author Organization [facility] Address [address] [place] [address] Care Team Providers Care Tick Sewer Name Role Phone Eliot Lee MD, Tonio Primary Care Provide r Joan Cheung Jr, Sea Unavailable REASON FOR VISIT erosive esophagitis Encounters Encounter Location Date Provider Diagnosis [facility] [address] [place] [id number] 03/05/2024 Sea Cheung Jr PLAN OF TREATMENT Next Appt Details Provider Name:Sea delong Jr, 03/23/2024 12:20:00 PM, [address] [place] [address], [phone],
--- OUTSIDE RECORDS SUMMARY | 2024-03-11 12:18 | XMS_ITS ---
Author Organization [facility] Address [address] [place] [phone] Care Team Providers Care Blocking Machine Operator Second Name Role Phone Eliot Lee MD, Tonio Primary Care Provide r Joan Cheung Jr, Sea Unavailable [phone] REASON FOR VISIT pathology PROBLEMS Problem Type ICD Code Onset Dates Problem Status W/U Status Risk SNOMED Code Notes Problem Erosive esophagitis (K22.10) Active confirmed 69598332 Encounters Encounter Location Date Provider Diagnosis [facility] [address] [place] [phone] 01/13/2024 Sea Cheung Jr Erosive esophagitis K22.10 ASSESSMENTS Encounter Date Diagnosis Assessment Notes Treatment Notes Treatment Clinical Notes 01/13/2024 Erosive esophagitis (ICD-10 - K22.10) PLAN OF TREATMENT Future Test Test Name Order Date UPPER GI ENDOSCOPY 01/13/2024
--- OUTSIDE RECORDS SUMMARY | 2024-03-11 12:18 | XMS_ITS ---
Author Organization [facility] Address [address] [place] [phone] Care Team Providers Care Sociology Instructor Name Role Phone Eliot Lee MD, Tonio Primary Care Provide r Joan Cheung Jr, Sea Unavailable Encounters Encounter Location Date Provider Diagnosis [facility] [address] [place] [phone] 03/05/2024 Sea Cheung Jr PLAN OF TREATMENT No Information
--- OUTSIDE RECORDS SUMMARY | 2024-03-11 12:18 | XMS_ITS | Patient Health Record ---
Author Organization [facility] Address [address] [place] [phone] Care Team Providers Care Aircraft Mechanic Armament Name Role Phone Eliot Lee MD, Tonio Primary Care Provide r Unavailable Sea Siddiqui Jr Unavailable RESULTS Component Value Reference Range Notes Pathology Reviewed date:01/13/2024 03:43:28 PM Interpretation: Performing Lab:[facility], [address] [place] [phone] Notes/Report: REASON FOR REFERRAL Referring Provider First Name Tonio Referring Provider Last Name Eliot chase Referring Provider Speciality Internal M edicine Referred Organization [facility] Referred Provider Sea Siddiqui Jr Referred Address [address] [place] [phone], Referred Provider Specialty Gastroentero logy General Notes Jennifer Hong 024 03:32:53 PM EST > REQUESTED A [place] REFERRAL FROM [facility] FOR VISIT WITH DR SIDDIQUI ON 03-05-2024 Referral Priority Routine SOCIAL HISTORY Sex Assigned At : Social History Observation Description Sex Assigned At Unknown PROBLEMS Problem Type ICD Code Onset Dates Problem Status W/U Status Risk SNOMED Code Notes Problem Erosive esophagitis (K22.10) Active confirmed 51021418 Problem Gastritis (K29.70) Active confirmed Gastritis (7885619) Encounters Encounter Location Date Provider Diagnosis [facility] [place] [address] [place] [phone] 01/09/2024 Sea Siddiqui Jr [facility] [place] Out[facility] [address] [place] [id number] 03/05/2024 Sea Siddiqui Jr [facility] [address] [facility] [address] [place] [phone] 01/13/2024 Sea Siddiqui Jr Erosive esophagitis K22.10 [facility] [address] [place] [phone] 03/05/2024 Sea Siddiqui Jr ASSESSMENTS Encounter Date Diagnosis Assessment Notes Treatment Notes Treatment Clinical Notes 01/13/2024 Erosive esophagitis (ICD-10 - K22.10) PLAN OF TREATMENT Future Test Test Name Order Date UPPER GI ENDOSCOPY 01/13/2024 Next Appt Details Provider Name:Sea delong Jr, 03/23/2024 12:20:00 PM, [address] [place] [address] , [place], [place], [phone], Insurance Providers Payer Name Payer Address Payer Phone Subscriber Number Group Number Insured Name Patient Relationship to Insured Coverage Start Date Coverage End Date [facility] [address] [place] [phone] [id number] OSVALDO CHRISTENSEN Self - patient is the insured
--- NOTE | 2024-03-22 10:06 | HO.ANESPROP2 ---
Documented by User: Daysi Hansen NP 03/22/24 10:06 HPI - Anesthesia Eval Consult details Narrative: 38yo M for Upper Endoscopy Hx polysub. Now on ? sublocade / suboxone PMFSH Active Problems Active Problems: All Active Problems History of anabolic steroid use (Acute) Rhabdomyolysis (Acute) COVID-19 (Acute) Past Medical History Medical History Opioid use disorder Cocaine use disorder MDD (major depressive disorder), recurrent episode, moderate Suicidal ideation Opiate abuse, episodic Hepatitis C Family History Family history of problems with anesthesia: No Surgical History History of Problems with Anesthesia: No Social History Social History Household Members: Significant Other Housing: House Housing Other:: sober living Are you a primary memory care program resident to a significant other at home: No Do you presently have visiting nurse or other home services: No Alcohol intake: former Patient Tobacco Use Status: Former Tobacco user e-Cigarette/Vaping Use: Former Use Second Hand Smoke Exposure: No Use of substances other than those prescribed or required for medical reasons: Yes Substance Use Type: Marijuana Substance Use Frequency: Daily Have you been hit, kicked, punched, or otherwise hurt by someone within the past year? If so, by whom?: No Are you DNR?: No Advance Directives: No Advance Directives Information Provided: Yes Recently lost weight without trying: No Nutrition Risks: No Nutritional Risk service: No Sexual orientation: Straight/Heterosexual Meds Allergies Allergy/AdvReac Type Severity Reaction Status Date / Time No Known Allergies Allergy Verified 03/23/24 10:30 [No Known Allergies*] Home Medications ?Medication ?Instructions ?Recorded ?Confirmed ?Last Taken ?Type buprenorphine 300 mg/1.5 mL 300 mg subcut QMONTH 01/07/24 01/08/24 12/11/23 History solution,exten.rel.subcutaneous syringe (Sublocade) gabapentin 800 mg tablet 800 mg PO TID 01/07/24 03/23/24 03/23/24 History buprenorphine 4 mg-naloxone 1 mg 1 film sublingual ONCE 03/05/24 Unknown History sublingual film (Suboxone) clonazepam 1 mg tablet mg 03/05/24 Unknown History Assessment and Plan Assessment Anesthesia Assessment: Chart Reviewed Final Anesthetic Review Family History of Problems with Anesthesia: No History of Problems with Anesthesia: No Documented by User: Amanda Castro MD 03/23/24 11:06 PMF Past Medical History Medical History Opioid use disorder Cocaine use disorder MDD (major depressive disorder), recurrent episode, moderate Suicidal ideation Opiate abuse, episodic Hepatitis C Social History Social History Household Members: Significant Other Housing: House Housing Other:: sober living Are you a primary memory care program resident to a significant other at home: No Do you presently have visiting nurse or other home services: No Alcohol intake: former Patient Tobacco Use Status: Former Tobacco user e-Cigarette/Vaping Use: Former Use Second Hand Smoke Exposure: No Use of substances other than those prescribed or required for medical reasons: Yes Substance Use Type: Marijuana Substance Use Frequency: Daily Have you been hit, kicked, punched, or otherwise hurt by someone within the past year? If so, by whom?: No Are you DNR?: No Advance Directives: No Advance Directives Information Provided: Yes Recently lost weight without trying: No Nutrition Risks: No Nutritional Risk service: No Sexual orientation: Straight/Heterosexual Meds Allergies Allergy/AdvReac Type Severity Reaction Status Date / Time No Known Allergies Allergy Verified 03/23/24 10:30 [No Known Allergies*] Home Medications ?Medication ?Instructions ?Recorded ?Confirmed ?Last Taken ?Type buprenorphine 300 mg/1.5 mL 300 mg subcut QMONTH 01/07/24 01/08/24 12/11/23 History solution,exten.rel.subcutaneous syringe (Sublocade) gabapentin 800 mg tablet 800 mg PO TID 01/07/24 03/23/24 03/23/24 History buprenorphine 4 mg-naloxone 1 mg 1 film sublingual ONCE 03/05/24 Unknown History sublingual film (Suboxone) clonazepam 1 mg tablet mg 12/27/24 Unknown History Exam Airway Mallampati Class: III TM Dist: >3cm Neck ROM: Full Loose/Missing/Broken Teeth: No Heart: RRR Lungs: CTA Assessment and Plan Assessment Anesthesia Assessment: Anesthesia Plan Discussed Final Anesthetic Review NPO: Yes ASA Class: II and III Final Preanesthetic Review: Meds/Allgs Chart Reviewed, Consent Obtained/Reviewed and Anes Risks/Benef Reviewed Patient Risk: Low Procedure Risk: Intermediate Anesthetic Plan Anesthetic Plan: MAC: Disposition: Standard PACU
--- OUTSIDE RECORDS SUMMARY | 2024-03-23 10:18 | XMS_ITS | Patient Health Record ---
Author Organization [facility] Address [address] [facility] [address] [place] [phone] Care Team Providers Care Water Commissioner Name Role Phone Eliot Lee MD, Tonio Primary Care Provide r Unavailable Sea Siddiqui Jr Unavailable RESULTS Component Value Reference Range Notes Pathology Reviewed date:01/13/2024 03:43:28 PM Interpretation: Performing Lab:[facility], [address] [place] [phone] Notes/Report: REASON FOR REFERRAL Referring Provider First Name Tonio Referring Provider Last Name Eliot chase Referring Provider Speciality Internal M edicine Referred Organization [facility] Referred Provider Sea Siddiqui Jr Referred Address [address] [facility], it[facility],[place], [place],[address], Referred Provider Specialty Gastroentero logy General Notes Jennifer Hong 024 03:32:53 PM EST > REQUESTED A [place] REFERRAL FROM [facility] FOR VISIT WITH DR SIDDIQUI ON 03-05-2024 Referral Priority Routine SOCIAL HISTORY Sex Assigned At : Social History Observation Description Sex Assigned At Unknown PROBLEMS Problem Type ICD Code Onset Dates Problem Status W/U Status Risk SNOMED Code Notes Problem Erosive esophagitis (K22.10) Active confirmed 56121386 Problem Gastritis (K29.70) Active confirmed Gastritis (7363520) Encounters Encounter Location Date Provider Diagnosis [facility] Inpatient [address] [place] [id number] 01/09/[address] [facility] Outpatient [address] [place] [id number] 03/05/[address] [facility] Outpatient [address] [place] [id number] 03/23/2024 Sea Siddiqui Jr [facility] [address] [place] [address] 01/13/2024 Sea Siddiqui Jr Erosive esophagitis K22.10 [facility] [address] [place] [address] 03/05/2024 Sea Siddiqui Jr ASSESSMENTS Encounter Date Diagnosis Assessment Notes Treatment Notes Treatment Clinical Notes 01/13/2024 Erosive esophagitis (ICD-10 - K22.10) PLAN OF TREATMENT Future Test Test Name Order Date UPPER GI ENDOSCOPY 01/13/2024 Next Appt Details Provider Name:Sea delong Jr, 03/23/2024 11:40:00 AM, [address] [facility] , [place], [place], [phone], Insurance Providers Payer Name Payer Address Payer Phone Subscriber Number Group Number Insured Name Patient Relationship to Insured Coverage Start Date Coverage End Date [place] 24/7[facility] [address] [place] [phone] [id number] OSVALDO CHRISTENSEN Self - patient is the insured
--- OUTSIDE RECORDS SUMMARY | 2024-03-23 10:18 | XMS_ITS ---
Author Organization [facility] Address [address] [place] [phone] Care Team Providers Care Night Clerk Auditor Name Role Phone Eliot Lee MD, Tonio Primary Care Provide r Joan Cheung Jr, Sea Unavailable Encounters Encounter Location Date Provider Diagnosis [facility] [address] [facility] [address] [place] [phone] 03/05/2024 Sea Cheung Jr PLAN OF TREATMENT Next Appt Details Provider Name:Sea delong Jr, 03/23/2024 11:40:00 AM, [address] [place] [address] , [place], [place], [phone],
--- OUTSIDE RECORDS SUMMARY | 2024-03-23 10:18 | XMS_ITS ---
Author Organization [facility] Address [address] [place] [address] Care Team Providers Care Forestry Support Specialist Name Role Phone Eliot Lee MD, Tonio Primary Care Provide r Joan Cheung Jr, Sea Unavailable [phone] REASON FOR VISIT erosive esophagitis Encounters Encounter Location Date Provider Diagnosis [facility] Outpatient [address] [place] [id number] 03/05/2024 Sea Cheung Jr PLAN OF TREATMENT Next Appt Details Provider Name:Sea delong Jr, 03/23/2024 11:40:00 AM, [address] [place] [address], [phone],
[2024-03-23 10:46] VITALS: BP 130/69; PULSE 75; RESP 12; TEMP 37.2; O2SAT 95; BMI 31.3
[2024-03-23] MEDS: Lactated Ringers 1,000 ML 100 ML IVCONT (10:55)
--- NOTE | 2024-03-23 10:57 | MHC.SHP ---
Pre-Procedural Eval Section A - 24 Hr Update-Section A only Date of Service: 03/23/24 Section B - Complete if H&P > 30 days Chief Complaint: Other esophagitis without bleeding Details of Present Illness: see H&P no changes Relevant Family History (Specify if Yes): No Relevant Social History: None Present Medications: see Short Stay Collaborative assessment Medical History: No relevant PMH History of Previous Operations: No relevant previous surgery Allergies: Allergies Allergy/AdvReac Type Severity Reaction Status Date / Time No Known Allergies Allergy Verified 03/23/24 10:30 [No Known Allergies*] Review of Systems Sugical H&P ROS: Negative: Constitution, Cardiovascular, Respiratory, Neurological, Psychiatric, Hem-Onc, Allergic/Immunologic, Gastrointestinal, Genitourinary, Musculoskeletal, Integumentary, Endocrine and Eyes/Ears/Nose/Throat Exam Surgical H&P Exam: Normal: HEENT, Normal: Heart, Normal: Lungs, Normal: Extremities, Normal: Abdomen, Normal: Skin and Normal: Neurological Plan Diagnosis/Plan: Unchanged I have reviewed the history and physical and performed a pertinent physical examination on my patient. No changes have occurred unless specified. Time Spent With Patient Time: Total time managing care of this patient today ____ minutes.
[2024-03-23 11:01] LABS: Amphetamine Screen Urine Not Detected (Not Detect); Barbiturates, Urine Not Detected (Not Detect); Benzodiazepines Screen Urine Not Detected (Not Detect); Buprenorphine Scr Positive (Not Detect); Cannabinoid Screen Urine POSITIVE (Not Detect); Cocaine Screen Urine Not Detected (Not Detect); Fentanyl, urine Not Detected (Not Detect); Methadone Screen, Urine Not Detected (Not Detect); Opiate Screen Urine Not Detected (Not Detect); Oxycodone Screen Urine Not Detected (Not Detect); Phencyclidine Screen Urine Not Detected (Not Detect)
[2024-03-23 11:30] VITALS: BP 91/50; PULSE 76; RESP 16; TEMP 37.2; O2SAT 96
[2024-03-23 11:45] VITALS: BP 106/69; PULSE 76; RESP 16; TEMP 36.9; O2SAT 97
--- NOTE | 2024-03-23 11:52 | OP_ITS ---
DATE OF SERVICE: 03/23/2024 SURGEON: Sea Cheung MD INDICATIONS: Gastroesophageal reflux disease and erosive esophagitis. PREOPERATIVE DIAGNOSIS: POSTOPERATIVE DIAGNOSIS: PROCEDURE PERFORMED: Upper endoscopy with biopsy. ESTIMATED BLOOD LOSS: COMPLICATIONS: ANESTHESIA: Monitored anesthesia care. ASSISTANTS: SPECIMENS: DESCRIPTION OF PROCEDURE: A history and physical was performed. The risks and benefits of the procedure were explained to the patient and informed consent was obtained. The patient was placed in the left lateral decubitus position. The Olympus video gastroscope was introduced into the esophagus, stomach, and duodenum. Examination was performed and the scope was removed. He tolerated the procedure well and was returned to the recovery area in stable condition. FINDINGS: Esophagus: The esophagus was normal. There was no esophagitis. The previous erosive esophagitis had healed. Biopsies were obtained from the EG junction. Stomach: The stomach showed some retained liquid, which was washed and suctioned with some small amounts of retained food. This was suctioned. Antral biopsies were obtained. There was no gastritis. Duodenum: The bulb and 2nd portion were normal. IMPRESSION: Gastroesophageal reflux disease. RECOMMENDATION: Follow up the biopsy results. MD MILES Juan/TEOL / [id number]
== END 2024-03-23 12:35 | disposition home or self-care (01) ==
PROVIDERS: Nurse Practitioner; Visit Provider Internal Medicine Gastroenterology
PROC: 0DJ08ZZ Inspection of Upper Intestinal Tract, Via Natural or Artificial Opening Endoscopic (ICD-10-PCS; CPT 43235; principal; 2024-03-23 11:40)
DX: K20.80 Other esophagitis without bleeding (principal); K21.9 Gastro-esophageal reflux disease without esophagitis; K92.0 Hematemesis; B19.20 Unspecified viral hepatitis C without hepatic coma; F33.1 Major depressive disorder, recurrent, moderate; F14.99 Cocaine use, unspecified with unspecified cocaine-induced disorder; F11.20 Opioid dependence, uncomplicated; Z92.241 Personal history of systemic steroid therapy; Z87.891 Personal history of nicotine dependence; Z79.899 Other long term (current) drug therapy
CPT/HCPCS: 43239; 80307; 88305; 88313; 88342; J2003; J2704

== ENCOUNTER 2024-06-24 09:01 | Emergency (ER) | payer MEDICAID, SELFPAY ==
--- NOTE | ~2024-06-24 | CT_ITS ---
EXAMINATION: CT ABDOMEN AND PELVIS WITH CONTRAST CLINICAL INFORMATION: Severe abdominal pain and cramping. COMPARISON: December 26, 2023. TECHNIQUE: Multidetector volumetric images were obtained from the superior aspect of the liver through the pubic symphysis following administration 85 mL of Omnipaque 350 intravenous contrast. Sagittal and coronal reformatted images were obtained on the technologist's workstation. Oral contrast: No This CT examination was performed using dose optimization techniques as appropriate, variously including the following: *Automated exposure control *Adjustment of mA and/or kV according to patient size (this includes techniques or standardized protocols for targeted exams where dose is matched to indication/reason for exam; i.e. extremities or head) *Use of iterative reconstruction technique DLP: 551 mGy centimeter. FINDINGS: LUNG BASES: No acute airspace disease. LIVER, GALLBLADDER, AND BILIARY TREE: Liver measures 17 cm. No focal mass. Portal veins, hepatic veins and intrahepatic portion of the IVC are patent. Gallbladder is contracted. No pericholecystic fluid collection or gallbladder wall thickening. No intrahepatic or extrahepatic biliary ductal dilatation. PANCREAS: No focal mass. No peripancreatic fluid collection. No main pancreatic ductal dilatation. SPLEEN: 7 cm. No focal lesion. ADRENAL GLANDS: No nodular lesions. KIDNEYS AND URETERS: No hydronephrosis. No gross nephrolithiasis. Normal enhancement pattern of the parenchyma. No gross renal mass. Subcentimeter exophytic cyst, anterior lower pole right kidney. BLADDER: Fluid-filled. GASTROINTESTINAL TRACT: There is gas within the duodenal bulb that appears to be within the lumen best seen at the jeannette hepatic region. There is abundant food contents and fluid in the stomach. Abundant stool within the large intestine. There is a collapsed appearance of the rectosigmoid colon. No intestinal obstruction pattern. Appendix is normal. No pneumatosis intestinalis. No ascites. No peripheral enhancing fluid collection, peritoneal cavity. ABDOMINAL WALL: No gross umbilical hernia. LYMPH NODES: No lymphadenopathy, retroperitoneum. VASCULAR: No aneurysm or dissection, abdominal aorta. PELVIC VISCERA: Nonenlarged prostate gland. OSSEOUS STRUCTURES: Mild multilevel thoracolumbar spondylosis more conspicuous at L4-5 and L5-S1 with vacuum phenomenon and likely bilateral neuroforamina narrowing. CT/CT abdomen pelvis w IV con IMPRESSION: Focal semilunar gas and the posterior duodenal bulb probably intraluminal. Consider peptic ulcer disease in the correct clinical settings. Collapsed rectosigmoid colon, acute inflammatory processes cannot be entirely excluded. Spondylosis L4-5 and L5-S1. Fleischner guidelines were followed. Electronically signed by: Donal Ferrer MD 06/24/2024 12:41 PM EDT RP
[2024-06-24 09:19] VITALS: BP 141/75; PULSE 71; RESP 18; TEMP 36.6; O2SAT 98; BMI 30.4
--- NOTE | 2024-06-24 09:34 | ED_ITS ---
HPI - Abdominal Pain General Chief Complaint: Abdominal Pain Stated Complaint: stomach issues Time Seen by Provider: 06/24/24 09:21 Source: patient Mode of arrival: ambulatory Limitations: no limitations History of Present Illness ED Provider: Luis Angel Mcguire PA-C HPI narrative: 38 yo male with history of gastritis on PPI BID, enteritis, hx anabolic steroid use, hx opiate and cocaine use use currently on sublocade, history of hepatitis C s/p treatment, depression who presents to the ER for evaluation of ongoing abdominal issues for the last 5 months. He states he has had frequent episodes of severe, central abdominal cramping episodes that are often associated with diaphoresis and nausea, occasionally vomiting. He has increased his PPI to BID recently with no improvement in his symptoms. He has had EGD x2 which showed improvement in his gastritis. He follows w/ Dr. Cheung. He has been having normal BMs daily. He reports the pains and cramps come randomly and almost daily. The last 2 weeks have been worse. He endorses increased stress and anxiety at home. No associated chest pain, SOB, fever, chills. He gets diaphoretic and clammy when the pains come. MD elicited complaint: abdominal pain Pertinent past history: gastritis Onset (ago): month(s) Pain Consistency: intermittent Location: periumbilical Severity: severe Quality: cramping and stabbing Radiation: none Migration to: no migration Exacerbating factors: nothing Relieving factors: nothing Context: history of similar episodes Associated symptoms: nausea and vomiting Related Data Home Medications ?Medication ?Instructions ?Recorded ?Confirmed buprenorphine 300 mg/1.5 mL 300 mg subcut QMONTH 01/07/24 01/08/24 solution,exten.rel.subcutaneous syringe (Sublocade) gabapentin 800 mg tablet 800 mg PO TID 01/07/24 03/23/24 buprenorphine 4 mg-naloxone 1 mg 1 film sublingual ONCE 03/05/24 sublingual film (Suboxone) clonazepam 1 mg tablet mg 03/05/24 Previous Rx's ?Medication ?Instructions ?Recorded omeprazole 40 mg capsule,delayed 40 mg PO DAILY@0630 #90 caps 01/11/24 release ondansetron 4 mg disintegrating 4 mg PO Q8H PRN nausea and 01/11/24 tablet vomiting #30 tabs dicyclomine 10 mg capsule 10 mg PO BID #60 caps 06/24/24 ondansetron 4 mg disintegrating 4 mg PO Q8H PRN nausea and 06/24/24 tablet vomiting #10 tabs Allergies Allergy/AdvReac Type Severity Reaction Status Date / Time No Known Allergies Allergy Verified 06/24/24 09:21 [No Known Allergies*] Review of Systems Review of Systems Yes all other systems are reviewed and are negative PMFSH Past Medical History Medical History Opioid use disorder Cocaine use disorder MDD (major depressive disorder), recurrent episode, moderate Suicidal ideation Opiate abuse, episodic Hepatitis C Social History Social History Household Members: Significant Other Housing: House Housing Other:: sober living Are you a primary day care home mother to a significant other at home: No Do you presently have visiting nurse or other home services: No Alcohol intake: former Patient Tobacco Use Status: Former Tobacco user e-Cigarette/Vaping Use: Former Use Second Hand Smoke Exposure: No Substance Use Type: Marijuana service: No Sexual orientation: Straight/Heterosexual Physical Exam ED Vital Signs: Vital Signs - 24 hr 06/24/24 09:19 06/24/24 12:26 06/24/24 13:43 Temperature 97.9 F 98.0 F 98.0 F Pulse Rate 71 57 57 Respiratory Rate 18 14 14 Blood Pressure 141/75 H 142/63 H 142/63 H Pulse Oximetry 98 95 95 Oxygen Delivery Method Room Air Room Air BMI result Body Mass Index 30.4 Appearance: Alert. Oriented X3. No acute distress. Head: normocephalic, atraumatic. Eyes: Pupils equal, round and reactive to light. ENT: Pharynx normal. No tonsillar swelling or exudate. Neck: Normal inspection. Neck supple. CVS: Normal heart rate and rhythm. Pulses normal. Respiratory: No respiratory distress. Breath sounds normal. Abdomen: Soft and nontender. +BS x4. LLQ soft tissue mass c/w sublocade Skin: Skin warm and dry. Normal skin color. Normal skin turgor. No rashes. Extremities: No lower extremity edema. No joint swelling. Neuro/psych: Oriented X 3. No motor deficit. No sensory deficit. CN II-XII intact. Normal speech and cognition. Medical Decision Making Medical Decision Making MDM Narrative: 38 yo male presenting with intermittent abdominal cramping and pain along with diaphoretic episodes and vomiting. mildly hypertensive on arrival. had a brief episode of cramping pain here. given bentyl with improvement. labs show acute on chronic transaminitis. no RUQ tenderness. mild hyperkalemia 5.5, IVF ordered. CT scan showed evidence of PUD, no perforation, no other significant findings. at this time unclear etiology of his chronic abdominal pains. he needs further workup with GI as well as his PCP, perhaps addressing his stress and anxiety. patient agrees to this will start on bentyl BID, advise food/pain diary and outpatient follow up stable for d/c home Differential Diagnosis Differential Diagnoses: The differential diagnosis associated with the presentation includes inflammatory bowel disease, irritable bowel syndrome, stress/anxiety, food intolerance, SIBO Admission/Observation Consideration of admission/observation: Escalation of care including admission/observation considered Lab Data [facility] Lab Attestation statement: I reviewed the patient's lab results. 06/24/24 10:43 06/24/24 10:43 Labs: Lab Results 06/24/24 Range/Units 10:43 WBC 5.0 (4.8-10.8) X10*3/uL RBC 5.08 (4.60-5.80) X10*6/uL Hgb 15.5 (14.0-18.0) g/dl Hct 45.7 (42.0-52.0) % MCV 90.0 (80.0-98.0) fL MCH 30.5 (27.0-33.0) pg MCHC 33.9 (31.0-36.0) g/dl RDW 15.2 (11.0-16.0) % Plt Count 339 (160-400) X10*3/uL MPV 10.1 (9.4-12.4) fL Immature Gran % (Auto) 0.2 (0.0-0.4) % Neut % (Auto) 71.9 (45-73) % Lymph % (Auto) 20.1 (20-40) % Gregory % (Auto) 6.4 (2-11) % Eos % (Auto) 0.6 (0-4) % Baso % (Auto) 0.8 (0-2) % Lymph # (Auto) 1.0 L (1.2-4.9) X10*3/uL Gregory # (Auto) 0.3 (0.1-1.2) X10*3/uL Eos # (Auto) 0.0 (0.0-0.4) X10*3/uL Baso # (Auto) 0.0 (0.0-0.2) X10*3/uL Abs Immat Gran (auto) 0.01 (0.00-0.03) X10*3/uL Absolute Neuts (auto) 3.6 (2.0-8.3) x10*3/uL Absolute Nucleated RBC 0.000 (0.0-0.012) X10*3/uL Nucleated RBC % (auto) 0.0 (0.0-0.2) /100WBC Sodium 139 (135-145) mmol/L Potassium 5.5 H (3.3-5.1) mmol/L Chloride 103 (96-108) mmol/L Carbon Dioxide 30 H (22-29) mmol/L Anion Gap 12 (12-20) BUN 12 (9-16) mg/dL Creatinine 0.98 (0.5-1.4) mg/dL Estim Creat Clear Calc 108.2 Estimated GFR > 60 Random Glucose 88 (60-115) mg/dL Calcium 9.3 (8.4-10.2) mg/dL Magnesium 2.0 (1.6-2.6) mg/dL Total Bilirubin 1.2 H (0.0-1.0) mg/dL Direct Bilirubin 0.5 (0.0-0.5) mg/dL AST 122 H (5-37) U/L ALT 229 H (0-40) U/L Alkaline Phosphatase 64 (39-117) U/L Total Protein 7.0 (6.5-8.0) g/dL Albumin 4.3 (3.5-5.0) g/dL Lipase 23 (8-78) U/L Urine Color Dark Yellow Urine Appearance Clear Urine pH 6.5 (5.0-9.0) Ur Specific [place] 1.025 (1.005-1.025) Urine Protein Trace (Neg-Trace) mg/dL Urine Glucose (UA) Negative (Negative) mg/dL Urine Ketones 15 (Negative) mg/dL Urine Blood Negative (Negative) Urine Nitrite Negative (Negative) Ur Leukocyte Esterase Negative (Negative) Urine Opiates Screen Not Detected (Not Detect) Ur Buprenorphine Scrn Positive H (Not Detect) ng/mL Ur Oxycodone Screen Not Detected (Not Detect) ng/mL Urine Methadone Screen Not Detected (Not Detect) ng/mL Urine Fentanyl Screen Not Detected (Not Detect) Ur Barbiturates Screen Not Detected (Not Detect) Ur Phencyclidine Scrn Not Detected (Not Detect) Ur Amphetamines Screen Not Detected (Not Detect) U Benzodiazepines Scrn Not Detected (Not Detect) Urine Cocaine Screen Not Detected (Not Detect) U Marijuana (THC) Screen POSITIVE H (Not Detect) Influenza Type A (PCR) NEGATIVE (Negative) Influenza Type B (PCR) NEGATIVE (Negative) RSV RNA Qual (PCR) NEGATIVE (Negative) SARS-CoV-2 RNA (RT-PCR) NEGATIVE (Negative) Independent Interpretation I performed an independent interpretation of an: CT Scan Interpretation: no air fluid levels to suggest obstruction, no appreciated colonic stranding or abscess Radiology Impression Discussion of test interpretation with radiology: I have reviewed the radiologist's reading. Independent Historian Clinical information obtained from an independent historian. History obtained from or confirmed by: Friend External Record Review External record reviewed: Inpatient record, Outpatient record, Prior outpatient labs and Prior outpatient radiology Prescription Management I considered prescription management with: Pain Medication and Antibiotic Medications Administered Discontinued Medications Generic Name Dose Route Start Last Admin Trade Name Freq PRN Reason Stop Dose Admin Dicyclomine HCl 10 mg 06/24/24 10:04 06/24/24 12:03 Dicyclomine Hcl 10 Mg Capsule PO 06/24/24 10:05 10 mg ONCE ONE Administration Sodium Chloride 1,000 mls @ 999 mls/hr 06/24/24 11:45 06/24/24 13:40 Ns IV 06/24/24 12:45 Infused .Q1H1M TORI Infusion Iohexol 100 ml 06/24/24 12:16 06/24/24 12:16 Iohexol 350 Mg/Ml 100 Ml Infus..Btl IV 06/24/24 12:17 85 ml ONCE ONE Administration Critical Care Time Critical Care Time Critical Care Time: No Discharge Plan Discharge Clinical Impression: Abdominal pain Patient Disposition: Home, Self-Care Instructions: Abdominal Pain (ED) Additional Instructions: stop meloxicam start bentyl 3 times per day keep a food diary of everything you eat, when the pain comes and how long it lasts follow up with GI and your PCP Prescriptions: New dicyclomine 10 mg capsule 10 mg PO BID Qty: 60 0RF ondansetron 4 mg tablet,disintegrating 4 mg PO Q8H PRN (Reason: nausea and vomiting) Qty: 10 0RF No Action gabapentin 800 mg tablet 800 mg PO TID Sublocade 300 mg/1.5 mL Solution, Extended Rel Syringe 300 mg SUBCUT QMONTH ondansetron 4 mg tablet,disintegrating 4 mg PO Q8H PRN (Reason: nausea and vomiting) Qty: 30 0RF omeprazole 40 mg Capsule,Delayed Release(Dr/Ec) 40 mg PO DAILY@0630 Qty: 90 0RF clonazepam 1 mg tablet buprenorphine-naloxone [Suboxone] 4-1 mg film 1 film sublingual ONCE Referrals: [facility] [Provider Group] [facility] [Primary Care Provider] - Stand Alone Forms: Work/School Release Interventions: ED Discharge Assessment Last Done: 06/24/24 13:43 Discharge Date/Time: 06/24/24 14:10 Print Language: Belarusian
--- OUTSIDE RECORDS SUMMARY | 2024-06-24 10:42 | XMS_ITS | Encounter Summary ---
Author Organization [employer] Address [address] [facility] [address] [place] [address] Care Team Providers Care Chemist Water Purification Name Role Phone Tari Yi EXPERIENCE DESIGN DIRECTOR Primary Care Provider [phone] Yaritza Nevarez EXPERIENCE DESIGN DIRECTOR Primary Care Provider [phone] Reason for Visit * Reason Onset Date Comments Med Refill 01/16/2024 Encounter Details Date Type Department Care Team ([facility] st Contact Info) Description 01/16/2024 Telephone [facility] [address] [place], [place] [phone] Tari Yi NP [address] [place], [place] [phone] Med Refill Social History Tobacco Use Types Packs/Day Years Used Date Smoking Tobacco: Former Cigarettes Q uit: 2017 Smokeless Tobacco: Never Comments:Quit smoking 2018, smoked for 10 years Alcohol Use Standard Drinks/Week Comments Not Currently 0 (1 standard drink = 0.6 oz pur e alcohol) Depression Answer Date Recorded Patient Health Questionnaire-9 Score 10 11/28/2022 Housing Stability Answer Date Recorded What is your housing situation today? I have bill berger 12/27/[address] you li ve. Do you have problems with any of the following? None of the above 12/27/2022 Food Insecurity Answer Date Recorded Within the past 12 months, y ou worried that your food would run out before you got money to buy more: Never True 12/27/2022 Within the past 12 months,th e food you bought just didn't last and you didn't have enough money to get more: Never True Transportation Answer Date Recorded In the past 12 months, has l ack of transportation kept you from medical appts, meetings, work or from getting things needed for daily living? No 12/27/2022 Utilities Answer Date Recorded In the past 12 months, has t he electric, gas, oil or water company threatened to shut off services in your home? No 12/27/2022 Depression Answer Date Recorded Patient Health Questionnaire-2 Score 2 11/28/2022 Sex and Gender Information Value Date Recorded Sex Assigned at Male 01/07/2022 10:19 AM EDT Legal Sex Male 10:19 AM EDT Gender Identity Male 01/07/2022 10:19 AM EDT Sexual Orientation Straight 01/07/2022 10 :19 AM EDT documented as of this encounter Miscellaneous Notes * Telephone Encounter - Kay Bolivar LPN - 01/16/2024 3:01 PM EST Script was sent on 12/24/23 to [id number]. * Telephone Encounter - Marcin Sanchez - 01/16/2024 2:53 PM EST TC from pt requesting medication refill. Medications needing refill : gabapentin (Neurontin) 800 MG tablet To be sent to: [id number] documented in this encounter Plan of Treatment Upcoming Encounters Date Type Department Care Team (Late st Contact Info) Description 09/07/2024 1:45 PM EDT Office Visit [facility] [address] [place] [address] Yaritza Nevarez NP [address] [place] [address] documented as of this encounter Visit Diagnoses Not on filedocumented in this encounter Additional Health Concerns Assessment Noted Time PHQ-9 Depression Total Score: 10 023 3:51 PM EDT documented as of this encounter Care Teams Chemist Water Purification Relationship Specialty Start Date End Date Tari Yi NP [address] [place] [address] PCP - General Family Medicine 8/30/24 2/27/25 Yaritza Nevarez NP [address] [place] [id number] PCP - General Family Medicine 05/07/24 documented as of this encounter
--- OUTSIDE RECORDS SUMMARY | 2024-06-24 10:42 | XMS_ITS | Encounter Summary ---
Author Organization [employer] Address [address] [facility] 7[address] [place] [address] Care Team Providers Care Lawn Caretaker Name Role Phone Tari Yi SHOVE UP Primary Care Provider [phone] Yaritza Nevarez SHOVE UP Primary Care Provider [phone] Reason for Visit * Reason Comments Med Refill Encounter Details Date Type Department Care Team (Late st Contact Info) Description 02/18/2024 Refill [facility] [address] [place], [place] [phone] Tari Yi NP [address] [place] [address] Generalized anxiety disorder; Neuropathic pain of left shoulder Social History Tobacco Use Types Packs/Day Years [...] AM EDT documented as of this encounter Plan of Treatment Upcoming Encounters Date Type Department Care Team (Late st Contact Info) Description 09/07/2024 1:45 PM EDT Office Visit [facility] [address] [place] [address] Yaritza Nevarez NP [address] [place] [address] documented as of this encounter Visit Diagnoses Diagnosis Generalized anxiety disorder Neuropathic pain of left shoulder documented in this encounter Additional Health Concerns Assessment Noted Time PHQ-9 Depression Total Score: 10 023 3:51 PM EDT documented as of this encounter Care Teams Lawn Caretaker Relationship Specialty Start Date End Date Tari Yi NP [address] [place] [phone] PCP - General Family Medicine 11/07/23 05/06/24 Yaritza Nevarez NP [address] [place] [phone] PCP - General Family Medicine 05/07/24 documented as of this encounter
--- OUTSIDE RECORDS SUMMARY | 2024-06-24 10:42 | XMS_ITS | Patient Health Record ---
Author Organization [facility] Address [address] [place] [address] Care Team Providers Care Global Vp Creative + Content Marketing Name Role Phone Eliot Lee MD, Tonio Primary Care Provide anne Cheung Jr, Sea Unavailable [phone] Results Component Value Reference Range Notes Pathology Reviewed date:01/13/2024 03:43:28 PM Interpretation: Performing Lab:[facility], [address] [place] [phone] Notes/Report: ---- Name: Ken Christensen Age/Sex: 38/M : 1985 Unit#: [id number] Attend Dr: Gisela Mckenzie MD Re01/07/24 Status : DIS IN Location: [facility] 343-1 Disch: 01/11/24 ---- SPEC : [id number] RECD : 01/09/24 STATUS: TRISTAN CHOWDHURY NUM: [id number] SCOTT: 01/09/24 [facility] DR: Sea Cheung MD ENTERED: 01/09/24 50 SP TYPE: Surgical OTHR DR: Enrique Pak DO ORDERED: HE Stain/6, Gross Micro L4/2, IHC, Special st. 2, H. pylori, AB/PAS Addendum Addendum 1 Entered: 01/13/24 No metaplastic max es are seen, supported by AB/PAS stains (B); no Helicobacter organisms are seen, supported by H. pylori immunostain (A). No change is made to the diagnoses. Addendum Signed (signature on file) José Miguel Garcia MD 01/13/24 1015 ---- Diagnosis A. Gastric antrum, biopsy: Gastric antral mucosa with minimal chronic inactive gastritis; negative for intestinal metaplasia and dysplasia. B. Esophagogastric junction, biopsy: Squamous mucosa with hyperplasia and focal intraepithelial neutrophils and eosinophils (up to 1 per high-power field) and columnar mucosa with mild chr onic active inflammation, consistent with esophagitis; no intestinal metaplasia seen on initial levels; negative for dysplasia. Comment: (A): Immunostain for H. pylori pending; addendum to follow. (B): Additional uzair granados with AB/PAS stain pending; addendum to follow. Clinical History Pre-Op Dx: Hematemesis Post-Op Dx: Gastriti s, erosive esophagitis Microscopic Description Microscopic sections reviewed. Material Received A. Antral bx's B. EG junction CONTINUED ON NEXT PAGE ---- Name: Ken Christensen Age/Sex: 38/M : 1985 Unit#: [id number] Attend Dr: Gisela Mckenzie MD Re01/07/24 Status : DIS IN Location: [facility] 343-1 Disch: 01/11/24 ---- SPEC : [id number] RECD : 01/09/24 STATUS: TRISTAN CHOWDHURY NUM: [id number] SCOTT: 01/09/24 [facility] DR: Sea Cheung MD ENTERED: 01/09/24 50 SP TYPE: Surgical OTHR DR: Enrique Pak DO ORDERED: HE Stain/6, Gross Micro L4/2, IHC, Special st. 2, H. pylori, AB/PAS Gross Description Received in two parts. Part A: Received in formalin labeled ?antral bx's? are 2 toure-torres and torres-pink irregular tissue fragments measuring 0.2 and 0.3 cm, submitted in toto in a cassette labeled A. Part B: Received in formalin labeled ?EG junction? are 2 toure-torres irregular tissue fragments measuring 0.25 and 0.3 cm, submitted in toto in a cassette labeled B. CEDS Special studies orde red and performed: Immunostain for H. pylori on A1; AB/PAS stains on B1. Copies To: Sea Cheung MD [facility] [address] [place] [address] Enrique Pak DO [address] [place] [address] ---- Signed (signature on file) Becca Murray 01/12/24 1316 (signature on file) José Miguel Garcia MD 01/13/24 1015 ---- END OF REPORT Drug Screen Urine Reviewed date:03/23/2024 03:09:38 PM Interpretation: Performing Lab:[facility], [address] [place] [phone] Notes/Report: Opiate Screen Urine Not Detected Not Detect Opiate cut-off is 300 ng/mL. Positive results are unconfirmed and should not be used for non-medical purposes. Barbiturates, Urine Not Detected Not Detect Barbiturate cut-off is 200 ng/mL. Positive results are unconfirmed and should not be used for non-medical purposes. Phencyclidine Screen Urine Not Detected Not Detect Phencyclidine cut-off is 25 ng/mL. Positive results are unconfirmed and should not be used for non-medical purposes. Amphetamine Screen Urine Not Detected Not Detect Amphetamine cut-off is 1000 ng/mL. Positive results are unconfirmed and should not be used for non-medical purposes. Benzodiazepines Screen Urine Not Detected Not Detect Benzodiazepine cut-off is 200 ng/mL. Positive results are unconfirmed and should not be used for non-medical purposes. Cocaine Screen Urine Not Detected Not Detect Cocaine cut-off is 300 ng/mL. Positive results are unconfirmed and should not be used for non-medical purposes. Cannabinoid Screen Urine POSITIVE Not Detect Cannabinoid cut-off is 50 ng/mL. Positive results are unconfirmed and should not be used for non-medical purposes. Methadone Screen, Urine Not Detected Not Detect ng/mL Methadone cut-off is 300 ng/mL. Positive results are unconfirmed and should not be used for non-medical purposes. Fentanyl, urine Not Detected Not Detect Fentanyl cut-off is 1 ng/mL. Positive results are unconfirmed and should not be used for non-medical purposes. Oxycodone Screen Urine Not Detected Not Detect ng/mL Oxycodone cut-off is 100 ng/mL. Positive results are unconfirmed and should not be used for non-medical purposes. Buprenorphine Scr Positive Not Detect ng/mL Buprenorphine cut-off is 5 ng/mL. Positive results are unconfirmed and should not be used for non-medical purposes. Pathology Reviewed date:04/01/2024 02:36:16 PM Interpretation: Performing Lab:[facility], [address] [place] [phone] Notes/Report: ---- Name: Ken Christensen Age/Sex: 38/M : 1985 Unit#: [id number] Attend Dr: Sea Cheung MD Re03/23/24 Status : [facility] Location: [facility] Disch: ---- SPEC : [id number] RECD: 03/23/240 STATUS: TRISTAN CHOWDHURY NUM: [id number] SCOTT: 03/23/240 [facility] DR: Sea Cheung MD ENTERED: 03/23/24-12 39 SP TYPE: Surgical OTHR DR: ORDERED: HE Stain/3, Gross Micro L4/2, IHC, Special st. 2, H. pylori, AB/PAS Diagnosis A. Stomach, antrum, biopsy: Antral-type and oxyntic mucosa with mild chronic inactive inflammation and intestinal metaplasia; negative for dysplasia; no Helicobacter organisms seen. B. EG junction, biopsy: - Cardiac-type mucos a with moderate chronic inactive inflammation; no intestinal metaplasia seen. - Active esophagitis (maximum eosinophil count 5 per high powered field). Clinical History Pre-Op Dx: Other esophagitis without bleeding Post-Op Dx: GERD Microscopic Description A, B. Microscopic sections examined. No metaplastic changes are seen, supported by AB/PAS stains (A); no Helicobacter organisms are seen, supported by H. pylori immunostain (A). Material Received A. Antrum B. EG junction Gross Description Received in two parts Part A: Received in formalin labeled ?antrum? are 2 torres-pink irregular and rectangular tissue fragments measuring 0.3 and 0.4 cm, submitted in toto in a cassette labeled A. Part B: Received in formalin labeled ?EG junction? are 4 toure-white and trores-pink irregular and rectangular tiss ue fragments ranging from 0.1-0.3 cm, submitted in toto in a cassette labeled B. CEDS Special studies orde red and performed: Immunostain for H. pylori on A; AB/PAS stains on A ---- Signed (signature on file) José Miguel Garcia MD 03/25/24 1405 ---- END OF REPORT Reason For Referral Referring Provider First Name Tonio Referring Provider Last Name Eliot chase Referring Provider Speciality Internal M edicine Referred Organization [facility] Referred Provider Sea Cheung Jr Referred Address [address] [place] [address],[place], [place],[address], Referred Provider Specialty Gastroentero maxwell General Notes Jennifer Hong 024 03:32:53 PM EST > REQUESTED A [place] REFERRAL FROM [facility] FOR VISIT WITH DR CHEUNG ON 03-05-2024 Referral Priority Routine Problems Problem Type SNOMED Code ICD Code Onset Dates Problem Status W/U Status Risk Notes Problem 99802772 Erosive esophagitis (K22.10) Active confirmed Problem Gastritis (3526724) Gastritis (K29.70) Active confirmed Problem Gastroesophageal reflux disease (disorder) (280483574) Chronic GERD (K21.9) Active confirmed Encounters Encounter Location Date Provider Diagnosis [facility] [address] [place] [id number] 01/09/2024 Sea Cheung Jr [facility] [place] [address] [place] [id number] 03/23/2024 Sea Cheung Jr Chronic GERD K21.9 and Erosive esophagitis K22.10 [facility] [address] [facility] [address] [place] [phone] 01/13/2024 Sea Cheung Jr Erosive esophagitis K22.10 [facility] [address] [place] [phone] 03/05/2024 Sea Cheung Jr [facility] [address] [facility] [address] [place] [phone] 04/01/2024 Sea Cheung Jr Assessments Encounter Date Diagnosis (ICD Code) Assessment Notes Treatment Notes Treatment Clinical Notes Section Notes 03/23/2024 Erosive esophagitis (ICD-10 - K22.10) 03/23/2024 Chronic GERD (ICD-10 - K21.9) 01/13/2024 Erosive esophagitis (ICD-10 - K22.10) Plan Of Treatment Future Test Test Name Order Date UPPER GI ENDOSCOPY 01/13/2024 Next Appt Details Provider Name:Sea delong Jr, 07/08/2024 02:35:00 PM, [address] [place] [address], [address], [place], [address], Insurance Providers Payer Name Payer Address Payer Phone Subscriber Number Group Number Insured Name Patient Relationship to Insured Coverage Start Date Coverage End Date MEDICA[employer] OF [employer] [address] [place] [phone] [id number] OSVALDO CHRISTENSEN Self - patient is the insured
--- OUTSIDE RECORDS SUMMARY | 2024-06-24 10:43 | XMS_ITS | Encounter Summary ---
Author Organization [employer] Address [address] [place] [address] Care Team Providers Care Instruction Librarian Name Role Phone Tari Yi LINK TRAINER Primary Care Provider [phone] Yaritza Nevarez LINK TRAINER Primary Care Provider [phone] Reason for Visit * Reason Onset Date Comments Med Refill 02/20/2024 Encounter Details Date Type Department Care Team ([facility] st Contact Info) Description 02/20/2024 Telephone [facility] [address] [place], [place] [phone] Tari Yi NP [address] [place], [place] [phone] Med Refill Social History Tobacco Use Types [...] encounter Miscellaneous Notes * Telephone Encounter - Kasie Mathew RN - 02/20/2024 1:28 PM EST Message sent to PCP now asking about refill request that was sent 02/18/24. Awaiting her response. * Telephone Encounter - Marcin Sanchez - 02/20/2024 1:23 PM EST TC from pt requesting medication refill. Medications needing refill : clonazePAM (KlonoPIN) 1 MG tablet To be sent to: [facility]/pharmacy #[id number] documented in this encounter Plan of Treatment Upcoming Encounters Date Type Department Care Team (Late st Contact Info) Description 09/07/2024 1:45 PM EDT Office Visit [facility] [address] [place] [address] Yaritza Nevarez NP [address] [place] [address] documented as of this encounter Visit Diagnoses Not on filedocumented in this encounter Additional Health Concerns Assessment Noted Time PHQ-9 Depression Total Score: 10 023 3:51 PM EDT documented as of this encounter Care Teams Instruction Librarian Relationship Specialty Start Date End Date Tari Yi NP [address] [place] [address] PCP - General Family Medicine 11/07/23 05/06/24 Yaritza Nevarez NP [address] [place] [address] PCP - General Family Medicine 05/07/24 documented as of this encounter
--- OUTSIDE RECORDS SUMMARY | 2024-06-24 10:43 | XMS_ITS ---
Author Organization [facility] Address [address] [place] [address] Care Team Providers Care Hedis Review Nurse Name Role Phone Eliot Lee MD, Tonio Primary Care Provide r Joan Cheung Jr, Sea Franco Encounters Encounter Location Date Provider Diagnosis [facility] [address] [place] [address] 03/05/2024 Sea Cheung Jr Plan Of Treatment Next Appt Details Provider Name:Sea delong Jr, 07/08/2024 02:35:00 PM, [address], [address], [place], [address], Progress Notes * OSVALDO CHRISTENSENDOB:[birth year] (38 yo M)Acc No.[id number]:03/05/2024 Patient:?OSVALDO CHRISTENSEN :1985???Age:38 Y???Sex:Male [facility] [place] [address] * true * Date:? Generated for Printi maximiliano/Rahul/eTransmitting on:?06/24/2024 10:43 AM EDT
--- OUTSIDE RECORDS SUMMARY | 2024-06-24 10:43 | XMS_ITS | Encounter Summary ---
Author Organization [employer] Address [address] [facility] [address] [place] [address] Care Team Providers Care Managing Consultant Name Role Phone Jaimie Wilson TRIAL ATTORNEY Primary Care Provider [phone] Tari Yi AURICULAR DETOXIFICATION SPECIALIST Primary Care Provider [phone] Yaritza Nevarez NP Primary Care Provider [phone] Encounter Details Date Type Department Care Team (Late st Contact Info) Description 05/15/2022 Orders Only [facility] MED[facility] [address] [place] [address] Jaimie Wilson FNP [address] [place] [address] Generalized anxiety disorder; Neuropathic pain of left shoulder Social History Tobacco Use Types Packs/Day Years Used Date Smoking Tobacco: Never Smokeless Tobacco: Never Sex and Gender Information Value Date Recorded Sex Assigned at Male 01/07/2022 10:19 AM EDT Legal Sex Male 10:19 AM EDT Gender Identity Male 01/07/2022 10:19 AM EDT Sexual Orientation Straight 01/07/2022 10 :19 AM EDT COVID-19 Exposure Response Date Recorded In the last 10 days, have yo u been in contact with someone who was confirmed or suspected to have Coronavirus/COVID-19? No / Unsure 05/15/2022 9:33 AM EST documented as of this encounter Plan of Treatment Upcoming Encounters Date Type Department Care Team (Late st Contact Info) Description 09/07/2024 1:45 PM EDT Office Visit [facility] [address] [place] [address] Yaritza Nevarez NP [address] [place] [address] documented as of this encounter Visit Diagnoses Diagnosis Generalized anxiety disorder Neuropathic pain of left shoulder documented in this encounter Care Teams Managing Consultant Relationship Specialty Start Date End Date Jaimie Wilson FNP [address] [place] [address] PCP - General Family Medicine 12/13/21 11/06/23 Tari Yi NP [address] [place] [address] PCP - General Family Medicine 11/07/23 05/06/24 Yaritza Nevarez NP [address] [place] [address] PCP - General Family Medicine 05/07/24 documented as of this encounter
--- OUTSIDE RECORDS SUMMARY | 2024-06-24 10:43 | XMS_ITS | Encounter Summary ---
Author Organization [employer] Address [address] [facility] 7t [place] [address] Care Team Providers Care Maintenance Of Way Clerk Name Role Phone Jaimie Wilson CUSHION SPRING ASSEMBLER Primary Care Provider [phone] Tari Yi CORPORATE REAL ESTATE SPECIALIST Primary Care Provider [phone] Yaritza Nevarez CORPORATE REAL ESTATE SPECIALIST Primary Care Provider [phone] Encounter Details Date Type Department Care Team (Late Contact Info) Description 10/31/2022 Orders Only [facility]S [address] [place], [place] [phone] Jaimie Wilson FNP [address] [place] [address] Social History Tobacco Use Types Packs/Day Years Used Date Smoking Tobacco: Former Cigarettes Q uit: 2017 Smokeless Tobacco: Never Comments:Quit smoking 2018, smoked for 10 years Alcohol Use Standard Drinks/Week Comments Not Currently 0 (1 standard drink = 0.6 oz pur e alcohol) Sex and Gender Information Value Date Recorded Sex Assigned at Male 01/07/2022 10:19 AM EDT Legal Sex Male 10:19 AM EDT Gender Identity Male 01/07/2022 10:19 AM EDT Sexual Orientation Straight 01/07/2022 10 :19 AM EDT documented as of this encounter Plan of Treatment Upcoming Encounters Date Type Department Care Team (Late Contact Info) Description 09/07/2024 1:45 PM EDT Office Visit [facility] MEDICINE [address] [place] [address] Yaritza Nevarez NP [address] [place] [address] documented as of this encounter Visit Diagnoses Not on filedocumented in this encounter Additional Health Concerns Assessment Noted Time PHQ-9 Depression Total Score: 1 06/01/19 23 3:12 PM EDT documented as of this encounter Care Teams Maintenance Of Way Clerk Relationship Specialty Start Date End Date Jaimie Wilson FNP [address] [place] [address] PCP - General Family Medicine 12/13/21 11/06/23 Tari Yi NP [address] [place] [address] PCP - General Family Medicine 11/07/23 05/06/24 Yaritza Nevarez NP [address] [place] [address] PCP - General Family Medicine 05/07/24 documented as of this encounter
--- OUTSIDE RECORDS SUMMARY | 2024-06-24 10:43 | XMS_ITS | Encounter Summary ---
Author Organization [employer] Address [address] [facility] [address] [place] [address] Care Team Providers Care Kettle Operator Head Name Role Phone Tari Yi FRONT SERVICES AGENT Primary Care Provider [phone] Yaritza Nevarez FRONT SERVICES AGENT Primary Care Provider [phone] Reason for Visit * Reason Comments Med Refill Encounter Details Date Type Department Care Team (Late st Contact Info) Description 04/14/2024 Refill [facility] [address] [place], [place] [phone] Tari Yi NP [address] [place] [address] Generalized anxiety disorder; Neuropathic pain of left shoulder Social History Tobacco Use Types Packs/Day Years Used Date Smoking Tobacco: Former Cigarettes Q uit: 2017 Smokeless Tobacco: Never Comments:Quit smoking 2018, smoked for 10 years Alcohol Use Standard Drinks/Week Comments Not Currently 0 (1 standard drink = 0.6 oz pur e alcohol) Depression Answer Date Recorded Patient Health Questionnaire-9 Score 7 03/12/2024 Patient Health Questionnaire-9 Score 7 03/12/2024 Last PHQ-9: Questionnaire Data Not on file 0 03/12/2024 Housing Stability Answer Date Recorded What is [...] enough money to get more: Never True 10/ Transportation Answer Date Recorded In the past [...] Date Recorded Patient Health Questionnaire-2 Score 2 03/12/2024 Sex and Gender Information Value Date Recorded Sex Assigned at Male 01/07/2022 10:19 AM EDT Legal Sex Male 10:19 AM EDT Gender Identity Male 01/07/2022 10:19 AM EDT Sexual Orientation Straight 01/07/2022 10 :19 AM EDT documented as of this encounter Plan of Treatment Upcoming Encounters Date Type Department Care Team (Late st Contact Info) Description 09/07/2024 1:45 PM EDT Office Visit [facility] [address] [place] [address] Yaritza Nevarez NP [address] [place] [address] documented as of this encounter Visit Diagnoses Diagnosis Generalized anxiety disorder Neuropathic pain of left shoulder documented in this encounter Additional Health Concerns Assessment Noted Time PHQ-9 Depression Total Score: 7 03/12/19 3:51 PM EST documented as of this encounter Care Teams Kettle Operator Head Relationship Specialty Start Date End Date Tari Yi NP [address] [place] [address] PCP - General Family Medicine 11/07/23 05/06/24 Yaritza Nevarez NP [address] [place] [address] PCP - General Family Medicine 05/07/24 documented as of this encounter
--- OUTSIDE RECORDS SUMMARY | 2024-06-24 10:43 | XMS_ITS | Clinical Summary ---
Author Organization [facility] Address [address] [place] [address] Phone Care Team Providers Care Keymodule Assembly Supervisor Name Role Phone Radha Carrillo MD Primary Care Provider [phone] Allergies No known active allergies Medications ibuprofen (ADVIL,MOTRIN) 800 mg tablet Take 1 Tab by mouth every 8 hours as needed for Pain. 6 Active gabapentin (NEURONTIN) 300 mg capsule One at bedtime nightly 9 Active naltrexone microspheres (VIVITROL) 380 mg suspension,extende d rel recon intramuscular suspension Inject 350 mg into the shoulder, thigh, or buttocks. Active clonazePAM (KlonoPIN) 1 mg tablet Take 1 tablet (1 mg total) by mouth 2 (two) times a day if needed for anxiety for up to 10 doses. Max Daily Amount: 2 mg 10 tablet 4 Active Active Problems Problem Noted Date Diagnosed Date AC separation, left, sequela 10/10/2018 Hepatitis C 11/01/2010 Substance abuse ([facility]/HCC V24, CMS/HCC V28) 11/01 Overview (02/25/2024): As of oct 2010 on suboxone H/o IV heroin, treated methadone 2008, on suboxone as of .13 Immunizations Name Administration Dates Next Due Hepatitis A Adult (Havrix; Vaqta) 19yo and older 03/17/2007 Hepatitis B (Taomgde-K-Myvyo , Recombivax HB-Adult) 19yo and older 03/17/2007 PPD Test 08/18/2012 Pneumococcal polysaccharide 23 valent (Pneumovax 23) 2yo and older 07/13/2013 Surgical History Surgery Date Site/Laterality Comments OTHER SURGICAL HISTORY PROCEDURE: DENIES PREVIOUS SURGERY Medical History Medical History Date Comments Tobacco abuse 11/01/2010 DX:Tobacco abuse Hepatitis C 11/01/2010 DX:Hepatitis C Substance abuse (CMS/HCC V24, CMS/HCC V28) 2010 DX:Substance abuse (HCC) Family History Relation Name Status Comments Brother Alive Father Alive Mother Alive Social History Tobacco Use Types Packs/Day Years Used Date Smoking Tobacco: Former Cigarettes Q uit: 03/10/2015 Smokeless Tobacco: Current Alcohol Use Standard Drinks/Week Comments No 0 (1 standard drink = 0.6 oz pur e alcohol) Sex and Gender Information Value Date Recorded Sex Assigned at Male 01/31/2024 3:34 PM EST Legal Sex Male 10:43 AM EST Gender Identity Male 01/31/2024 3:34 PM EST Sexual Orientation Straight 01/31/2024 3: 34 PM EST Obstetrics History Last Filed Vital Signs Vital Sign Reading Time Taken Comments Blood Pressure 145/68 03/05/2024 4:16 PM EST Pulse 86 03/05/2024 4:16 PM EST Temperature 37 ??C (98.6 ??F) 03/05/2024 4:16 PM EST Respiratory Rate 20 03/05/2024 4:16 PM EST Oxygen Saturation 98% 03/05/2024 4:16 PM EST Inhaled Oxygen Concentration - - Weight 90.7 kg (200 lb) 03/05/2024 4:16 PM EST Height 170.2 cm (5' 7 ) 03/05/2024 4:16 PM EST Body Mass Index 31.32 03/05/2024 4:16 PM EST Plan of Treatment Health Maintenance Due Date Last Done Comments DTaP,Tdap,and Td Vaccines (1 - Tdap) 2004 Hepatitis B Vaccines (2 of 3 - 19+ 3-dose series) 04/14/2007 03/17/2007 Hepatitis A Vaccines (2 of 2 - Risk 2-dose series) 09/15/2007 03/17/2007 Social Influencers of Health Screening 02/05/2022 COVID-19 Vaccine (3 - 2023-2 5 season) 2023 05/12/2020, 04/14/2020 Depression Screening 11/29/2023 11/28/2022 Influenza Vaccine (Season Ended) 2024 Cholesterol Screening (Lipid Panel) 06/01/2027 05/31/2022, 11/01/2010 HIV Screening Completed 08/28/2012 Hepatitis C Screening Completed 08/28/2012 Pneumococcal Vaccine: Pediatrics (0 to 5 Years) and At-Risk Patients (6 to 64 Years) Aged Out 07/13/2013 No longer eligible b ased on patient's age to complete this topic HIB Vaccines Aged Out No longer eligi ble based on patient's age to complete this topic HPV Vaccines Aged Out No longer eligi ble based on patient's age to complete this topic IPV Vaccines Aged Out No longer eligi ble based on patient's age to complete this topic MMR Vaccines Aged Out No longer eligi ble based on patient's age to complete this topic Meningococcal ACWY Vaccine Aged Out N o longer eligible based on patient's age to complete this topic Meningococcal B Vaccine Aged Out No l onger eligible based on patient's age to complete this topic RSV Immunization Patients Under 20 months Aged Out No longer eligible b ased on patient's age to complete this topic Varicella Vaccines Aged Out No longer eligible based on patient's age to complete this topic Procedures Procedure Name Priority Date/Time Associated Diagnosis Comments HEPATITIS C SCREENING Routine 08/28/2012 HIV SCREENING Routine 08/28/2012 LIPID PANEL Routine 11/01/2010 from Last 3 Months or Most Recently Relevant to Health Maintenance Results * HIV Screening (08/28/2012) Pathologist [facility] HIV Screening abstracted us Historical Provider HEALTH MAINTENANCE Final Result * Hepatitis C Screening (08/28/2012) Pathologist [facility] Hepatitis C Screening abstracted us Historical Provider HEALTH MAINTENANCE Final Result * Lipid panel (11/01/2010) Pathologist [facility] LDL/HDL Ratio 2 0 - 4 Triglycerides 54 0 - 150 mg/dL Cholesterol 126 0 - 200 mg/dL HDL 67 >=40 mg/dL LDL Cholesterol 49 0 - 100 mg/dL Blood Venous blood specimen / Unknown us Historical Provider LAB BLOOD ORDERABLES Oneyda roberta Result from Last 3 Months or Most Recently Relevant to Health Maintenance Insurance MEDICAID - [place] Care Teams Keymodule Assembly Supervisor Relationship Specialty Start Date End Date Radha Carrillo MD [address] [place] [address] PCP - General Internal Medicine 02/11/17
--- OUTSIDE RECORDS SUMMARY | 2024-06-24 10:43 | XMS_ITS | Encounter Summary ---
Author Organization [employer] Address [address] [facility] 7t [place] [address] Care Team Providers Care Fine Craft Artist Name Role Phone Jaimie Wilson Primary Care Provider [phone] Tari Yi CNP Primary Care Provider [phone] Yaritza Nevarez CNP Primary Care Provider [phone] Reason for Visit * Reason Onset Date Comments Med Refill 03/19/2022 Encounter Details Date Type Department Care Team (Late st Contact Info) Description 03/19/2022 Refill [facility] [address] [place], [place] [phone] Jaimie Wilson FNP [address] [place] [address] Pain Social History Tobacco Use Types Packs/Day Years Used Date Smoking Tobacco: Never Assessed Sex and Gender Information Value Date Recorded Sex Assigned at Male 01/07/2022 10:19 AM EDT Legal Sex Male 10:19 AM EDT Gender Identity Male 01/07/2022 10:19 AM EDT Sexual Orientation Straight 01/07/2022 10 :19 AM EDT documented as of this encounter Miscellaneous Notes * Telephone Encounter - CLEMENTINE Esquivel - 03/20/2022 1:46 PM EST Approving, but needs appt for additional refills. * Telephone Encounter - Rishi Terry - 03/19/2022 3:28 PM EST Tc from pt requesting med refill ( Gabapentin 800 mg ) documented in this encounter Plan of Treatment Upcoming Encounters Date Type Department Care Team (Late st Contact Info) Description 09/07/2024 1:45 PM EDT Office Visit [facility] [address] [place] [address] Yaritza Nevarez, PATTY [address] [place] [address] documented as of this encounter Visit Diagnoses Diagnosis Pain Generalized pain documented in this encounter Care Teams Fine Craft Artist Relationship Specialty Start Date End Date Jaimie Wilson FNP [address] [place], [place] [phone] PCP - General Family Medicine 12/13/21 11/06/23 Tari Yi NP [address] [place] [address] PCP - General Family Medicine 11/07/23 05/06/24 Yaritza Nevarez NP [address] [place] [id number] PCP - General Family Medicine 05/07/24 documented as of this encounter
--- OUTSIDE RECORDS SUMMARY | 2024-06-24 10:43 | XMS_ITS | Encounter Summary ---
Author Organization [employer] Address [address] [facility] 7t [place] [address] Care Team Providers Care Sales Planner Name Role Phone Jaimie WilsonP Primary Care Provider [phone] Tari Yi RIVET SORTER Primary Care Provider [phone] Yaritza Nevarez RIVET SORTER Primary Care Provider [phone] Reason for Visit * Reason Comments Med Refill Encounter Details Date Type Department Care Team (Late st Contact Info) Description 08/07/2023 Refill [facility] [address] [place], [place] [phone] Jaimie Wilson FNP [address] [place] [address] Generalized anxiety disorder; Neuropathic pain of left shoulder Social History Tobacco Use Types Packs/Day Years Used Date Smoking Tobacco: Former Cigarettes Q uit: 2017 Smokeless Tobacco: Never Comments:Quit smoking 2018, smoked for 10 years Alcohol Use Standard Drinks/Week Comments Not Currently 0 (1 standard drink = 0.6 oz pur e alcohol) Depression Answer Date Recorded Patient Health Questionnaire-9 Score 11/28/2022 Housing Stability Answer Date Recorded What [...] Description 09/07/2024 1:45 PM EDT Office Visit [facility] [address] [place] [address] Yaritza Nevarez NP [address] [place] [address] documented as of this encounter Visit Diagnoses Diagnosis Generalized anxiety disorder Neuropathic pain of left shoulder documented in this encounter Additional Health Concerns Assessment Noted Time PHQ-9 Depression Total Score: 10 023 3:51 PM EDT documented as of this encounter Care Teams Sales Planner Relationship Specialty Start Date End Date Jaimie Wilson FNP [address] [place] [address] PCP - General Family Medicine 12/13/21 11/06/23 Tari Yi NP [address] [place] [address] PCP - General Family Medicine 11/07/23 05/06/24 Yaritza Nevarez NP [address] [place] [address] PCP - General Family Medicine 05/07/24 documented as of this encounter
--- OUTSIDE RECORDS SUMMARY | 2024-06-24 10:43 | XMS_ITS | Encounter Summary ---
Author Organization [employer] Address [address] [facility] 7t [place] [address] Care Team Providers Care Industrial Spraypainter Name Role Phone Jaimie WilsonP Primary Care Provider [phone] Tari Yi WET WASH ASSEMBLER Primary Care Provider [phone] Yaritza Nevarez WET WASH ASSEMBLER Primary Care Provider [phone] Reason for Visit * Reason Comments Med Refill Encounter Details Date Type Department Care Team (Late st Contact Info) Description 12/30/2022 Refill [facility] [address] [place], [place] [phone] Jaimie Wilson FNP [address] [place] [address] Generalized anxiety disorder; Neuropathic pain of left [...] Description 09/07/2024 1:45 PM EDT Office Visit [facility] [address] [place] [address] Yaritza Nevarez NP [address] [place] [address] documented as of this encounter Visit Diagnoses Diagnosis Generalized anxiety disorder Neuropathic pain of left shoulder documented in this encounter Additional Health Concerns Assessment Noted Time PHQ-9 Depression Total Score: 10 023 3:51 PM EDT documented as of this encounter Care Teams Industrial Spraypainter Relationship Specialty Start Date End Date Jaimie Wilson FNP [address] [place] [address] PCP - General Family Medicine 12/13/21 11/06/23 Tari Yi NP [address] [place] [address] PCP - General Family Medicine 11/07/23 05/06/24 Yaritza Nevarez NP [address] [place] [address] PCP - General Family Medicine 05/07/24 documented as of this encounter
--- OUTSIDE RECORDS SUMMARY | 2024-06-24 10:43 | XMS_ITS | Encounter Summary ---
Author Organization [employer] Address [address] [facility] 7t [place] [address] Care Team Providers Care Head Of Academic Technology Name Role Phone Jaimie WilsonP Primary Care Provider [phone] Tari Yi DOWELER Primary Care Provider [phone] Yaritza Nevarez DOWELER Primary Care Provider [phone] Reason for Visit * Reason Onset Date Comments FYI 08/13/2022 Encounter Details Date Type Department Care Team (Late st Contact Info) Description 08/13/2022 Telephone [facility] [address] [place], [place] [phone] Jaimie Wilson FNP [address] [place] [address] FYI Social History Tobacco Use Types Packs/Day Years [...] encounter Miscellaneous Notes * Telephone Encounter - Mariana Horton RN - 08/13/2022 3:07 PM EDT Noted * Telephone Encounter - Katelynn Lucero - 08/13/2022 2:43 PM EDT Tc from [facility] from [facility] calling to inform pt has been admitted in the pt health unit today 08/13/22. documented in this encounter Plan of Treatment Upcoming Encounters Date Type Department Care Team (Late st Contact Info) Description 09/07/2024 1:45 PM EDT Office Visit [facility] [address] [place] [address] Yaritza Nevarez, PATTY [address] [place] [address] documented as of this encounter Visit Diagnoses Not on filedocumented in this encounter Additional Health Concerns Assessment Noted Time PHQ-9 Depression Total Score: 1 06/01/19 3:12 PM EDT documented as of this encounter Care Teams Head Of Academic Technology Relationship Specialty Start Date End Date Jaimie Wilson FNP [address] [place] [address] PCP - General Family Medicine 12/13/21 11/06/23 Tari Yi NP [address] [place] [address] PCP - General Family Medicine 11/07/23 05/06/24 Yaritza Nevraez NP [address] [place] [address] PCP - General Family Medicine 05/07/24 documented as of this encounter
--- OUTSIDE RECORDS SUMMARY | 2024-06-24 10:43 | XMS_ITS | Encounter Summary ---
Author Organization [employer] Address [address] [facility] 7t [place] [address] Care Team Providers Care Dynamite Packing Machine Feeder Name Role Phone Tari Yi TRANSITIONS MANAGER Primary Care Provider [phone] Yaritza Nevarez TRANSITIONS MANAGER Primary Care Provider [phone] Reason for Visit * Reason Comments Med Refill Encounter Details Date Type Department Care Team (Late st Contact Info) Description 04/13/[address] [facility] [address] [place], [place] [phone] Tari Yi NP [address] [place] [address] Generalized anxiety disorder; Neuropathic pain of left [...] Description 09/07/2024 1:45 PM EDT Office Visit [facility] [address] [place] [address] Yaritza Nevarez NP [address] [place] [address] documented as of this encounter Visit Diagnoses Diagnosis Generalized anxiety disorder Neuropathic pain of left shoulder documented in this encounter Additional Health Concerns Assessment Noted Time PHQ-9 Depression Total Score: 7 03/12/19 3:51 PM EST documented as of this encounter Care Teams Dynamite Packing Machine Feeder Relationship Specialty Start Date End Date Tari Yi NP [address] [place] [address] PCP - General Family Medicine 11/07/23 05/06/24 Yraitza Nevarez NP [address] [place] [address] PCP - General Family Medicine 05/07/24 documented as of this encounter
--- OUTSIDE RECORDS SUMMARY | 2024-06-24 10:43 | XMS_ITS | Encounter Summary ---
Author Organization [employer] Address [address] [facility] 7t [place] [address] Care Team Providers Care Social Sciences Lecturer Name Role Phone Jaimie Wilson INDUSTRIAL LABORER Primary Care Provider [phone] SLURRY CONTROL OPERATOR HELPER Primary Care Provider [phone] Yaritza Nevarez SLURRY CONTROL OPERATOR HELPER Primary Care Provider [phone] Encounter Details Date Type Department Care Team (Late st Contact Info) Description 02/21/2022 Refill [facility] [address] [place], [place] [phone] Jaimie Wilson FNP [address] [place] [address] Social History Tobacco Use Types Packs/Day Years [...] Telephone Encounter - Kasie Mathew RN - 02/25/2022 8:39 AM EST Duplicate Gabapentin request, was filled 02/22/22 * Telephone Encounter - Aquilino Lancaster - 02/22/2022 4:07 PM EST Tc from pt returning call on status of medication . * Telephone Encounter - Edna Duke 02/22/2022 1:38 PM EST Tc from pt requesting status on medication Gabapentin 800mg. PCP PATTY Wilson * Telephone Encounter - Rishi Terry - 02/21/2022 10:56 AM EST Tc from pt requesting med refill ( Gabapentin 800 mg ) Last seen on 03/19/21 PCP RADHA Wilson documented in this encounter Plan of Treatment Upcoming Encounters Date Type Department Care Team (Late st Contact Info) Description 09/07/2024 1:45 PM EDT Office Visit [facility] [address] [place] [address] Yaritza Nevarez NP [address] [place] [address] documented as of this encounter Visit Diagnoses Not on filedocumented in this encounter Care Teams Social Sciences Lecturer Relationship Specialty Start Date End Date Jaimie Wilson FNP [address] [place] [address] PCP - General Family Medicine 12/13/21 11/06/23 Tari Yi NP [address] [place] [address] PCP - General Family Medicine 11/07/23 05/06/24 Yaritza Nevarez NP [address] [place] [address] PCP - General Family Medicine 05/07/24 documented as of this encounter
--- OUTSIDE RECORDS SUMMARY | 2024-06-24 10:43 | XMS_ITS ---
Author Organization [facility] Address [address] [place] [address] Care Team Providers Care Licensing Officer Name Role Phone Eliot Lee MD, Tonio Primary Care Provide r Joan Cheung Jr, Sea Franco REASON FOR VISIT pathology Encounters Encounter Location Date Provider Diagnosis [facility] [address] [place] [address] 04/01/2024 Sea Cheung Jr Plan Of Treatment Next Appt Details Provider Name:Sea delong Jr, 07/08/2024 02:35:00 PM, [address], [address], [place], [address], Progress Notes * OSVALDO CHRISTENSENDOB:[birth year] (38 yo M)Acc No.[id number]:04/01/2024 Patient:?OSVALDO CHRISTENSEN :1985???Age:38 Y???Sex:Male Address:[address] [place], [address] * true * Date:? Generated for Live[employer] maximiliano/Rahul/eTransmitting on:?06/24/2024 10:43 AM EDT
--- OUTSIDE RECORDS SUMMARY | 2024-06-24 10:43 | XMS_ITS | Encounter Summary ---
Author Organization [employer] Address [address] [facility] 7t [place] [address] Care Team Providers Care Forging Press Lever Tender Name Role Phone Tari Yi DEVELOPMENTAL BEHAVIORAL PHYSICIAN Primary Care Provider [phone] Yaritza Nevarez DEVELOPMENTAL BEHAVIORAL PHYSICIAN Primary Care Provider [phone] Reason for Visit * Reason Comments Med Refill Encounter Details Date Type Department Care Team (Late st Contact Info) Description 02/20/2024 Refill [facility] [address] [place], [place] [phone] Gladis Granger MD [address] [place], [place] [phone] Anxiety Social History Tobacco Use Types Packs/Day Years [...] Description 09/07/2024 1:45 PM EDT Office Visit [facility] [address] [place] [address] Yaritza Nevarez NP [address] [place] [address] documented as of this encounter Visit Diagnoses Diagnosis Anxiety Anxiety state, unspecified documented in this encounter Additional Health Concerns Assessment Noted Time PHQ-9 Depression Total Score: 10 023 3:51 PM EDT documented as of this encounter Care Teams Forging Press Lever Tender Relationship Specialty Start Date End Date Tari Yi NP [address] [place] [address] PCP - General Family Medicine 11/07/23 05/06/24 Yaritza Nevarez NP [address] [place] [address] PCP - General Family Medicine 05/07/24 documented as of this encounter
--- OUTSIDE RECORDS SUMMARY | 2024-06-24 10:43 | XMS_ITS | Clinical Summary ---
Author Organization [employer] Address 75 [facility] 7t [place] [address] Care Team Providers Care Oracle Applications Developer Name Role Phone Yaritza Nevarez PATTY Primary Care Provider [phone] Allergies No known active allergies Medications * This document contains information received from the source organization and may not represent a complete record from that organization. Blood Pressure Monitoring (Comfort Touch BP Cuff/Large) misc 1 kit in the morning. 1 each 11/16/19 23 Active ondansetron ODT (Zofran-ODT) [address] 1 TABLET ON THE TONGUE EVERY 8 HOURS NEEDED FOR NAUSEA AND VOMITING 01/11/20 24 Active naloxone (Narcan) 4 mg/0.1 mL nasal spray TAKE 1 SPRAY NEEDED BY NASAL ROUTE DIRECTED. 11/11/19 24 Active naltrexone ER (Vivitrol) injection Inject 350 mg into the muscle. Active omeprazole (PriLOSEC) [address] capsule TAKE 1 CAPSULE BY MOUTH DAILY AT 6:30AM 90 capsule 2 04/15/19 25 Active gabapentin (Neurontin) 800 MG tabletIndications :Generalized anxiety disorder,Neuropat hic pain of left shoulder TAKE 1 TABLET BY MOUTH THREE TIMES A DAY 90 tablet 2 06/09/19 25 Active gabapentin (Neurontin) 800 MG tabletIndications :Generalized anxiety disorder,Neuropat hic pain of left shoulder TAKE 1 TABLET BY MOUTH THREE TIMES A DAY 90 tablet 05/07/19 25 025 Discontinued(R eorder (will not trigger notification to Pharmacy)) Active Problems Problem Noted Date Diagnosed Date Shoulder injury 06/08/2024 Erosive esophagitis 03/13/2024 Assessment & Plan (06/08/2024 2:00 PM EDT): Endoscopy, 2024, continue omeprazole 20 mg Anxiety 03/12/2024 Overview (03/12/2024): will test for pheochromytoma with urine and plasma metanephrines Assessment & Plan (03/13/2024 9:28 AM EST): Discussed first line medications for anxiety/depression including SSRIs, discussed side effects and what to expect when taking med. Pt reluctant to trying a new medication at this time, declines starting something new until he sees psychiatrist. Discussed danger of benzodiazepine use in combination with suboxone use d/t respiratory depression, pt aware and persistent to continue therapy at this time. Will send 9 day supply to cover patient until his psychiatry appoint 03/22 to protect pt from going into benzodiazepine withdrawal, discussed how benzodiazepine therapy is not first line for anxiety/depression and should not be reserved for long time use. Adjustment disorder with mixed anxiety and depre ssed mood 12/02/2022 Moderate depressive disorder 11/28/2022 Moderate anxiety 02/25/2019 Assessment & Plan (01/30/2024 10:33 AM EST): Pt is on wait list for [facility] Psych prescriber, will continue prn Klonopin that he has used in the past for panic attacks, up to PCP whether they are comfortable continuing this. He is aware that he should be established with psych prescriber. 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 Date Type Department Care Team Description 06/21/2024 Telephone [facility] [address] [place] [phone] Yaritza Nevarez NP NTTS (Nurse Telephone Triage Service Patient Call Report - Status Check on pt) 06/08/2024 1:45 PM EDT Office Visit [address] [address] Yaritza Nevarez NP Erosive esophagitis (Primary Dx); Injury of left shoulder, subsequent encounter; Anxiety; Healthcare maintenance; Hepatitis C antibody test positive; Generalized anxiety disorder; Neuropathic pain of left shoulder; Elevated CK 06/08/2024 Travel 06/01/2024 Patient Outreach [facility] [address] [place] [address] Yaritza Nevarez NP Pre-visit Planning (SDOH unable to complete) 05/27/2024 Telephone [facility] [address] [place] [address] Minna Berg MA Chart Prep 05/21/2024 Population Health Risk Score [facility] ([facility]) Department [address] [place] [phone] Provider, Population Health Generic 05/07/2024 9:00 AM EST Office Visit [facility] [address] [place] [phone] Tari iY NP Generalized anxiety disorder; Neuropathic pain of left shoulder 05/07/2024 Telephone [facility] [address] [place] [address] Tari Yi NP Change PCP (Patient is requesting to changed pcp due to pcp removing medication gabapentin that he has been taking for years. Patient stated she just gave it back the meds. But patient is not happy and doesn't want to see his pcp again. Contact patient [phone]) 05/07/2024 Travel 04/20/2024 Telephone [facility] [address] [place] [address] Leobardo Young MA chartprep 04/15/2024 Telephone [facility] [address] [place] [address] Tari Yi NP Med Refill 04/15/2024 Refill [facility] [address] [place] [address] Jaimie Wilson FNP 04/15/2024 Refill [facility] [address] [place] [address] Botas, Jaimie, TUBE DEPATCHER Generalized anxiety disorder; Neuropathic pain of left shoulder 04/15/2024 Refill [facility] [address] [facility] [place] [address] Tari Yi NP Generalized anxiety disorder; Neuropathic pain of left shoulder 04/14/2024 Refill [facility] [address] [place] [address] Tari Yi, PATTY Generalized anxiety disorder; Neuropathic pain of left shoulder 04/13/2024 Refill [facility] [address] [facility] [place] [address] Tari Yi NP Generalized anxiety disorder; Neuropathic pain of left shoulder 04/12/2024 Refill [facility] [address] [facility] [place] [address] Tari Yi NP Generalized anxiety disorder; Neuropathic pain of left shoulder from Last 3 Months Immunizations Name Administration Dates Next Due Hep A, Adult 03/17/2007 Hep B, adult 03/17/2007 Moderna Covid-19 Vaccine 12+ 05/12/2020,04/14/19 21 Pneumococcal Polysaccharide PPSV23 07/13/2013 Family History Medical History Relation Name Comments Heart attack Father Heart disease Mother's Sister Relation Name Status Comments Father Mother's Sister Social History Tobacco Use Types Packs/Day Years [...] housing situation today? I have bill berger 05/07/[address] you li ve. Do you have problems with any of the following? None of the above 05/07/2024 Food Insecurity Answer Date Recorded Within the past 12 months, y ou worried that your food would run out before you got money to buy more: Sometimes True 2024 Within the past 12 months,th e food you bought just didn't last and you didn't have enough money to get more: Sometimes True 05/07/2024 Transportation Answer Date Recorded In the past 12 months, has l ack of transportation kept you from medical appts, meetings, work or from getting things needed for daily living? Yes, it has kept me from non-medical meetings, work, or getting things that I need 05/07/2024 Utilities Answer Date Recorded In the past 12 months, has t he electric, gas, oil or water company threatened to shut off services in your home? No 05/07/2024 Depression Answer Date Recorded Patient Health Questionnaire-2 Score 2 03/12/2024 Internet Access Answer Date Recorded Internet Access Q1 Yes 05/07/2024 Internet Access Q2 Not on file 05/07/2024 Sex and Gender Information Value Date Recorded Sex Assigned at Male 01/07/2022 10:19 AM EDT Legal Sex Male 10:19 AM EDT Gender Identity Male 01/07/2022 10:19 AM EDT Sexual Orientation Straight 01/07/2022 10 :19 AM EDT Last Filed Vital Signs Vital Sign Reading Time Taken Comments Blood Pressure 138/66 06/08/2024 1:55 PM EDT Pulse 57 06/08/2024 1:55 PM EDT Temperature 36.9 ??C (98.5 ??F) 06/08/2024 1:55 PM ED T Respiratory Rate 20 06/08/2024 1:55 PM EDT Oxygen Saturation 98% 06/08/2024 1:55 PM EDT Inhaled Oxygen Concentration - - Weight 89.4 kg (197 lb 3.2 oz) 06/08/2024 1:55 P M EDT Height 170.2 cm (5' 7 ) 06/08/2024 1:55 PM EDT Body Mass Index 30.89 06/08/2024 1:55 PM EDT Plan of Treatment Upcoming Encounters Date Type Department Care Team (Late st Contact Info) Description 09/07/2024 1:45 PM EDT Office Visit [facility] [address] [place] [address] Yaritza Nevarez NP [address] [place] [address] Health Maintenance Due Date Last Done Comments Family Planning (PISQ) 2000 DTaP/Tdap/Td Vaccines (1 - Tdap) 2004 Hepatitis B Vaccines (2 of 3 - 19+ 3-dose series) 04/14/2007 03/17/2007 Hepatitis A Vaccines (2 of 2 - Risk 2-dose series) 09/15/2007 03/17/2007 COVID-19 Vaccine (3 - 2023-2 5 season) 2023 05/12/2020, 04/14/2020 Influenza Vaccine (#1) 2023 Depression Screening 03/12/2025 03/12/2024, 03/12/2024 Alcohol/Substance Use Screening 05/07/2025 05/07/2024 SDOH Screening 05/07/2025 05/07/2024 Tobacco Screening 06/08/2025 06/08/2024 Lipid Panel 06/01/2027 05/31/2022 Zoster Vaccines (1 of 2) 09/14/2035 RSV Patients and Patients Aged 60 years or older (1 - 1-dose 75+ series) 2060 Pneumococcal Vaccine: Pediatrics (0 to 5 Years) and At-Risk Patients (6 to 49) Years) Aged Out 07/13/2013 No longer eligible b ased on patient's age to complete this topic HIV Screening Completed 05/31/2022, 02/16/2021, 02/09/2019 HIB Vaccines Aged Out No longer eligi ble based on patient's age to complete this topic HPV Vaccines Aged Out No longer eligi ble based on patient's age to complete this topic IPV Vaccines Aged Out No longer eligi ble based on patient's age to complete this topic Meningococcal Vaccine Aged Out No kenneth bela eligible based on patient's age to complete this topic RSV under 20 months Aged Out No longe r eligible based on patient's age to complete this topic Rotavirus Vaccines Aged Out No longer eligible based on patient's age to complete this topic Procedures Procedure Name Priority Date/Time Associated Diagnosis Comments HIV 1 RNA, QN PCR W/RFL SHERLYN (RTI,PI,INTEGRASE) Routine 05/31/2022 4:14 PM EDT Routine screening for STI (sexually transmitted infection) LIPID PANEL, STANDARD Routine 05/31/2022 4:14 PM EDT Routine general medical examination at a [facility] care facility from Last 3 Months or Most Recently Relevant to Health Maintenance Results * HIV-1 RNA, Quantitative, Real-Time PCR with Reflex to Genotype (RTI, PI, Integrase) (05/31/2022 4:14 PM EDT) Pathologist [facility] HIV 1 RNA, QN PCR NOT DETECTED copies/mL [facility], HIV 1 RNA, QN PCR NOT DETECTED Log copies/mL [facility], Comment: REFERENCE RANGE: NOT DETECTED copies/mL ?NOT DETECTED ??Log copies/mL This test was performed using Real-Time Polymerase Chain Reaction. Reportable range is 20 to 10,000,000 copies/mL (1.30-7.00 Log copies/mL). 05/31/2022 4:14 PM EDT 05/31/2022 4:15 PM EDT Jaimie Wilson [facility] LAB BLOOD ORDERABLES Final Resu lt [facility] [address], [place] [address] [facility], [address] [place] [address] * (ABNORMAL) Lipid Panel, Standard (05/31/2022 4:14 PM EDT) Pathologist [facility] Cholesterol, Total 131 <200 mg/dL [facility] HDL Cholesterol 37(L) > OR = 40 mg/dL [facility] Triglycerides 63 <150 mg/dL [facility] LDL Cholesterol 80 mg/dL (calc) [facility] Comment: Reference range: <100 Desirable range <100 mg/dL for primary prevention; ?? <70 mg/dL for patients with CHD or diabetic patients with > or = 2 CHD risk factors. LDL-C is now calculated using the Ace-Bajwa calculation, which is a validated novel method providing better accuracy than the Friedewald equation in the estimation of LDL-C. Ace SS et al. BRETT. 2013;310(19): 7289-4627 (http://education.ShareThe.Zillow/faq/EKC569) Chol/HDLC Ratio 3.5 <5.0 (calc) [facility] Non-HDL Cholesterol 94 <130 mg/dL (calc) [facility] Comment: For patients with diabetes plus 1 major ASCVD risk factor, treating to a non-HDL-C goal of <100 mg/dL (LDL-C of <70 mg/dL) is considered a therapeutic option. Blood Venous blood specimen / Unknown 05/31/2022 4:14 PM EDT 05/31/2022 4:15 PM EDT Jaimie Wilson TUBE DEPATCHER LAB BLOOD ORDERABLES Final Resu lt [facility] [address], [place] [address] [facility] [address] [place] [address] from Last 3 Months or Most Recently Relevant to Health Maintenance Insurance [facility] C3 HSN FULL Care Teams Oracle Applications Developer Relationship Specialty Start Date End Date Yaritza Nevarez NP [address] [place] [address] PCP - General Family Medicine 05/07/24
--- OUTSIDE RECORDS SUMMARY | 2024-06-24 10:43 | XMS_ITS | Encounter Summary ---
Author Organization [employer] Address 75 [facility] 7t [place] [address] Care Team Providers Care Podiatric Medicine Doctor Name Role Phone Yaritza Nevarez NP Primary Care Provider [phone] Reason for Visit * Reason Onset Date Comments NTTS 06/21/2024 Nurse Telephone Triage Service Patient Call Report - Status Check on pt Encounter Details Date Type Department Care Team ([facility] st Contact Info) Description 06/21/[address] [facility] [address] [place], [place] [phone] Yaritza Nevarez NP [address] [place], [place] [phone] NTTS (Nurse Telephone Triage Service Patient Call Report - Status Check on pt) Social History Tobacco Use Types Packs/Day Years [...] encounter Miscellaneous Notes * Telephone Encounter - Anjana Zamorano RN - 06/21/2024 9:48 AM EDT Received NTTS patient call report from 06/20/24 that pt has been vomiting since yesterday and some diarrhea, no fever, hx GERD. Pt reports in NTTS that they could call in and get Zofran anytime he wants it. TC x 2 placed to pt at [phone] for status check. Unable to reach pt. Immediately received message, We're sorry, your call did not go through. Please try your call again. Pt to follow up PRN. documented in this encounter Plan of Treatment Upcoming Encounters Date Type Department Care Team (Late st Contact Info) Description 09/07/2024 1:45 PM EDT Office Visit [facility] [address] [place], [place] [phone] Yaritza Nevarez NP [address] [place] [address] documented as of this encounter Visit Diagnoses Not on filedocumented in this encounter Additional Health Concerns Assessment Noted Time PHQ-9 Depression Total Score: 7 03/12/19 25 3:51 PM EST documented as of this encounter Care Teams Podiatric Medicine Doctor Relationship Specialty Start Date End Date Yaritza Nevarez NP [address] [place] [address] PCP - General Family Medicine 05/07/24 documented as of this encounter
--- OUTSIDE RECORDS SUMMARY | 2024-06-24 10:44 | XMS_ITS | Encounter Summary ---
Author Organization [employer] Address 75 [facility] 7t [place] [address] Care Team Providers Care African History Professor Name Role Phone Tari Yi PANTS CLOSER Primary Care Provider [phone] Yaritza Nevarez PANTS CLOSER Primary Care Provider [phone] Reason for Visit * Reason Comments Med Refill Encounter Details Date Type Department Care Team (Late st Contact Info) Description 04/15/[address] [facility] [address] [place], [place] [phone] Tari Yi NP [address] [place] [address] Generalized anxiety disorder; Neuropathic pain of left [...] encounter Miscellaneous Notes * Telephone Encounter - Tari Yi NP - 04/15/2024 1:39 PM EST Patient has not been seen by me and it is unclear the reason for which he is prescribed this medication. Advise he follow-up with psych for refill if the medication is being used to manage his anxiety. Thanks documented in this encounter Plan of Treatment Upcoming Encounters Date Type Department Care Team (Late st Contact Info) Description 09/07/2024 1:45 PM EDT Office Visit [facility] [address] [place] [address] Yaritza Nevarez NP [address] [place] [address] documented as of this encounter Visit Diagnoses Diagnosis Generalized anxiety disorder Neuropathic pain of left shoulder documented in this encounter Additional Health Concerns Assessment Noted Time PHQ-9 Depression Total Score: 7 03/12/19 3:51 PM EST documented as of this encounter Care Teams African History Professor Relationship Specialty Start Date End Date Tari Yi NP [address] [place] [address] PCP - General Family Medicine 11/07/23 05/06/24 Yaritza Nevarez NP [address] [place] [address] PCP - General Family Medicine 05/07/24 documented as of this encounter
--- OUTSIDE RECORDS SUMMARY | 2024-06-24 10:44 | XMS_ITS | Encounter Summary ---
Author Organization [employer] Address 75 [facility] 7t [place] [address] Care Team Providers Care Environmental Services Aide Name Role Phone Jaimie WilsonP Primary Care Provider [phone] Tari Yi LOCUM TENENS Primary Care Provider [phone] Yaritza Nevarez LOCUM TENENS Primary Care Provider [phone] Reason for Visit * Reason Comments Med Refill Encounter Details Date Type Department Care Team (Late st Contact Info) Description 08/08/2023 Refill [facility] [address] [place], [place] [phone] Jaimie Wilson FNP [address] [place] [address] Generalized anxiety disorder; Neuropathic pain of left [...] Description 09/07/2024 1:45 PM EDT Office Visit [facility] [address] [place] [address] Yaritza Nevarez NP [address] [place] [address] documented as of this encounter Visit Diagnoses Diagnosis Generalized anxiety disorder Neuropathic pain of left shoulder documented in this encounter Additional Health Concerns Assessment Noted Time PHQ-9 Depression Total Score: 10 023 3:51 PM EDT documented as of this encounter Care Teams Environmental Services Aide Relationship Specialty Start Date End Date Jaimie Wilson FNP [address] [place] [address] PCP - General Family Medicine 12/13/21 11/06/23 Tari Yi NP [address] [place] [address] PCP - General Family Medicine 11/07/23 05/06/24 Yaritza Nevarez NP [address] [place] [address] PCP - General Family Medicine 05/07/24 documented as of this encounter
--- OUTSIDE RECORDS SUMMARY | 2024-06-24 10:44 | XMS_ITS | Encounter Summary ---
Author Organization [employer] Address 75 [facility] 7t [place] [address] Care Team Providers Care City Planning Teacher Name Role Phone Tari Yi SUGAR HOUSE SUPERVISOR Primary Care Provider [phone] Yaritza Nevarez SUGAR HOUSE SUPERVISOR Primary Care Provider [phone] Reason for Visit * Reason Comments Med Refill Encounter Details Date Type Department Care Team (Late st Contact Info) Description 04/15/2024 Refill [facility] [address] [place], [place] [phone] Jaimie Wilson FNP [address] [place] [address] Generalized anxiety disorder; Neuropathic pain of left [...] Description 09/07/2024 1:45 PM EDT Office Visit [facility] [address] [place] [address] Yaritza Nevarez NP [address] [place] [address] documented as of this encounter Visit Diagnoses Diagnosis Generalized anxiety disorder Neuropathic pain of left shoulder documented in this encounter Additional Health Concerns Assessment Noted Time PHQ-9 Depression Total Score: 7 03/12/19 3:51 PM EST documented as of this encounter Care Teams City Planning Teacher Relationship Specialty Start Date End Date Tari Yi NP [address] [place] [address] PCP - General Family Medicine 11/07/23 05/06/24 Yaritza Nevarez NP [address] [place] [address] PCP - General Family Medicine 05/07/24 documented as of this encounter
[2024-06-24 10:51] LABS: MANUAL DIFF FLAG NO
[2024-06-24 10:53] LABS: Basophils Percent Auto 0.8 % (0-2); Eosinophils Percent Auto 0.6 % (0-4); Hematocrit 45.7 % (42.0-52.0); Hemoglobin 15.5 g/dl (14.0-18.0); Imm Gran Abs Auto 0.01 X10*3/uL (0.00-0.03); Imm Gran Pct Auto 0.2 % (0.0-0.4); Lymphocytes Percent Auto 20.1 % (20-40); Mean Corpuscular HGB Conc 33.9 g/dl (31.0-36.0); Mean Corpuscular Hemoglobin 30.5 pg (27.0-33.0); Mean Platelet Volume 10.1 fL (9.4-12.4); Monocytes Absolute Auto 0.3 X10*3/uL (0.1-1.2); Monocytes Percent Auto 6.4 % (2-11); Neutrophils Absolute Auto 3.6 x10*3/uL (2.0-8.3); Neutrophils Percent Auto 71.9 % (45-73); Platelet Count 339 X10*3/uL (160-400); Red Blood Count 5.08 X10*6/uL (4.60-5.80); Red Cell Distribution Width 15.2 % (11.0-16.0)
[2024-06-24 10:54] LABS: Appearance Urine Clear; Color Urine Dark Yellow; Glucose Urine UA Negative (Negative); Leukocyte Esterase Urine Negative (Negative); Nitrite Urine Negative (Negative); PH 6.5 (5.0-9.0); Specific Gravity - Urine 1.025 (1.005-1.025); Urine Blood Negative (Negative); Urine Ketones 15 mg/dL (Negative); Urine Protein Trace mg/dL (Neg-Trace)
[2024-06-24 11:13] LABS: Amphetamine Screen Urine Not Detected (Not Detect); Barbiturates, Urine Not Detected (Not Detect); Benzodiazepines Screen Urine Not Detected (Not Detect); Buprenorphine Scr Positive (Not Detect); Cannabinoid Screen Urine POSITIVE (Not Detect); Cocaine Screen Urine Not Detected (Not Detect); Fentanyl, urine Not Detected (Not Detect); Methadone Screen, Urine Not Detected (Not Detect); Opiate Screen Urine Not Detected (Not Detect); Oxycodone Screen Urine Not Detected (Not Detect); Phencyclidine Screen Urine Not Detected (Not Detect)
[2024-06-24 11:25] LABS: Alanine Aminotransferase 229 U/L (0-40); Albumin Level 4.3 g/dL (3.5-5.0); Alkaline Phosphatase 64 U/L (39-117); Anion Gap 12 (12-20); Aspartate Amino Transferase 122 U/L (5-37); Bilirubin Direct 0.5 mg/dL (0.0-0.5); Bilirubin Total 1.2 mg/dL (0.0-1.0); Blood Urea Nitrogen 12 mg/dL (9-16); Calcium 9.3 mg/dL (8.4-10.2); Carbon Dioxide 30 mmol/L (22-29); Chloride 103 mmol/L (96-108); Creatinine Clr Calc Pharmacy 108.2; Estimated Glomerular Filt Rate > 60; Glucose Random 88 mg/dL (60-115); Lipase 23 U/L (8-78); Potassium 5.5 mmol/L (3.3-5.1); Sodium 139 mmol/L (135-145)
[2024-06-24 11:44] LABS: Influenza A PCR NEGATIVE (Negative); Influenza B PCR NEGATIVE (Negative); Resp Syncy Virus RNA Qual PCR NEGATIVE (Negative); SARS COV2 PCR INHOUSE NEGATIVE (Negative)
[2024-06-24] MEDS: Dicyclomine HCl 10 MG CAPSULE PO (12:03)
[2024-06-24] MEDS: 0.9 % Sodium Chloride 1,000 ML 999 ML IV (12:05)
[2024-06-24] MEDS: iohexoL 350 MG/ML 100 ML INFUS..BTL IV (12:16)
[2024-06-24 12:26] VITALS: BP 142/63; PULSE 57; RESP 14; TEMP 36.7; O2SAT 95
[2024-06-24 13:43] VITALS: BP 142/63; PULSE 57; RESP 14; TEMP 36.7; O2SAT 95
== END 2024-06-24 14:10 | disposition home or self-care (01) ==
PROVIDERS: Physician Assistant; Emergency Provider Emergency Medicine
DX: R10.9 Unspecified abdominal pain (principal); K29.70 Gastritis, unspecified, without bleeding; B19.20 Unspecified viral hepatitis C without hepatic coma; F11.20 Opioid dependence, uncomplicated; Z92.241 Personal history of systemic steroid therapy; Z03.818 Encounter for observation for suspected exposure to other biological agents ruled out
CPT/HCPCS: 0241U; 36415; 74177; 80048; 80076; 80307; 81003; 83690; 83735; 85025; 87522; 96360; 96361; 99284; Q9967

== ENCOUNTER → 2024-06-24 10:52 | Outpatient (BNV) | payer MEDICAID, SELFPAY | PROVIDERS: Emergency Provider Emergency Medicine; Visit Provider Radiology Diagnostic Radiology | DX: K63.89 Other specified diseases of intestine (principal) | CPT/HCPCS: 74177 ==